=== PATIENT | male | born 1935 | race Caucasian/White ===

== ENCOUNTER → 2023-07-27 08:15 | Outpatient (REF) | payer MEDICARE, BC, SELFPAY | LOC: WOUND 08:15 | PROVIDERS: ATTENDING PHYSICIAN Surgery; FAMILY PHYSICIAN Family Medicine | DX: I87.311 Chronic venous hypertension (idiopathic) with ulcer of right lower extremity (principal); L97.811 Non-pressure chronic ulcer of other part of right lower leg limited to breakdown of skin; I87.2 Venous insufficiency (chronic) (peripheral); I73.9 Peripheral vascular disease, unspecified; I10 Essential (primary) hypertension | CPT/HCPCS: 29581; 99204 ==

== ENCOUNTER → 2023-08-05 10:52 | Outpatient (REF) | payer MEDICARE, BC, SELFPAY | LOC: WOUND 10:52 | PROVIDERS: ATTENDING PHYSICIAN Surgery; FAMILY PHYSICIAN Family Medicine | DX: I87.311 Chronic venous hypertension (idiopathic) with ulcer of right lower extremity (principal); L97.811 Non-pressure chronic ulcer of other part of right lower leg limited to breakdown of skin; I87.2 Venous insufficiency (chronic) (peripheral); I73.9 Peripheral vascular disease, unspecified; I10 Essential (primary) hypertension | CPT/HCPCS: 99212 ==

== ENCOUNTER → 2023-09-23 09:25 | Outpatient (REF) | payer MEDICARE, BC, SELFPAY | LOC: DHCBS HW 09:25 | PROVIDERS: ATTENDING PHYSICIAN Internal Medicine Cardiovascular Disease; FAMILY PHYSICIAN Family Medicine | DX: R06.02 Shortness of breath (principal) | CPT/HCPCS: 93306 ==

== ENCOUNTER → 2024-01-03 09:28 | Outpatient (REF) | payer MEDICARE, BC, SELFPAY | LOC: HWRAD 09:28 | PROVIDERS: ATTENDING PHYSICIAN Physician Assistant | DX: I60.9 Nontraumatic subarachnoid hemorrhage, unspecified (principal) | CPT/HCPCS: 70450 ==

== ENCOUNTER 2024-02-04 21:06 | Emergency (ER) | payer MEDICARE, BC, SELFPAY ==
[2024-02-04 21:09] VITALS: BP 137/84
--- NOTE | 2024-02-04 21:20 | ED.GENMED ---
History of Present Illness
General
Chief Complaint: Head Injury
Time Seen by Provider: 02/04/24 21:09
History of Present Illness
History of Present Illness:
HPI: The patient presents with a head injury. He was at his house next to his hospital bed downstairs and indicates that he presumably was trying to change but his walker was not present and he fell forward striking his head on the coffee
table. Of note, 1 to 2 months ago, the patient had a 'double brain bleed' managed nonoperatively while he was on Eliquis - he was at [facility].
EXAM:
GENERAL: Appears in no distress
HEENT: Moist oral mucosa, there is no evidence of craniofacial trauma
CERVICAL SPINE: There is no midline C-spine tenderness
CARDIOVASCULAR: Regular rate and rhythm
PULMONARY: No respiratory distress, breathing is nonlabored, equal and clear breath sounds
ABDOMEN: Soft and nontender with no peritoneal signs
NEUROLOGIC: The patient has evidence of dementia, not oriented to month or place, strength is equal in all extremities
EXTREMITIES: Moves all extremities equally, no tenderness, no edema
PYSCHIATRIC: Very limited historian, poor insight and judgment
TIME OF INITIAL ENCOUNTER: 9:20 PM
NUMBER AND COMPLEXITY OF PROBLEMS ADDRESSED AT THE ENCOUNTER
� Chronic conditions affecting care: High blood pressure, hyperlipidemia, prostate cancer, intracranial hemorrhage after trauma 2023
� Acute Exacerbation and/or Progression of Chronic Illness: This is an acute problem
� Differential Diagnosis includes: Intracranial hemorrhage, minor head injury, concussion,
AMOUNT AND/OR COMPLEXITY OF DATA TO BE REVIEWED AND ANALYZED
� I performed an independent evaluation of and my interpretation is:
EKG:
CT: I personally reviewed CT imaging�chronic findings noted but no acute abnormality
X-rays:
Laboratory Studies:
Other:
� Review of other/old records: Echo was obtained 09/23/2023 for history of A-fib that showed borderline global hypokinesis with EF of 50%
� Clinical information was obtained by an independent historian: was the primary historian that I spoke to at bedside
� Prescriptions/Medications Considered but not given:
� Further testing considered but not performed:
RISK OF COMPLICATIONS AND/OR MORBIDITY OR MORTALITY OF PATIENT MANAGEMENT
� Social determinants of health affecting care: The patient came in from home by ambulance, he has a hospital bed downstairs
� Discussion with other providers:
� Escalation of care including admission/observation vs risk of discharge considered: Will obtain CT imaging for further evaluation as the patient had a recent presumably subdural hematoma managed nonoperatively. At that time he
was on Eliquis. He is no longer on Eliquis. Remainder of physical exam for trauma is unremarkable.
Past History
Past History
ED Past Medical History: HTN, Hypercholesterolemia and Other (Seasonal allergies)
ED Past Surgical History: Other (Colonoscopy July 2014); Negative Appendectomy (The patient denies having an appendectomy)
Social History
Tobacco: Non-smoker
Drug: None
Personal:
Living: with family
Employment: Retired
Phy Exam
Physical Exam
Physical Exam:
See HPI
Course
Orders/Labs/Results
Orders:
Orders
02/04/24 21:19
CT Head W/o Iv Contrast Urgent
Comment:
Reason For Exam: head trauma; Decemberdouble brain bleed' [facility]
Vital Signs
Initial and Last Documented VS:
Initial Vital Signs
Temp Pulse Resp BP Pulse Ox
98.6 F 73 16 137/84 100
02/04/24 21:09 02/04/24 21:09 02/04/24 21:09 02/04/24 21:09 02/04/24 21:09
Last Documented Vital Signs
Temp Pulse Resp BP Pulse Ox
98.6 F 73 16 137/84 98
02/04/24 21:09 02/04/24 21:09 02/04/24 21:09 02/04/24 21:09 02/04/24 21:11
*Critical Care Note
Total Time (30-74mins, 75-104mins- exclusive of procedures): Not Applicable
ED Attending Note
-
Portions of this chart may have been created with voice recognition software.� Occasional wrong word or��sound alike� substitutions may have occurred due to the inherent limitations of voice recognition software.
Discharge Plan
Departure
Patient Disposition: Home (Routine Discharge)
Date of Disposition: 02/04/24
Time of Disposition: 23:00
Patient with high blood pressure during this ER visit?: Yes
Discharge Problem:
Head injury
Instructions: Minor Head Injury (DC)
Prescriptions:
No Action
losartan [Cozaar] 50 MG tablet
50 mg PO DAILY
cetirizine [Zyrtec] 5 MG tablet
5 mg PO DAILY
simvastatin 20 MG tablet
20 mg PO DAILY
azelastine-fluticasone [Dymista] 23 GM spray,non-aerosol
1 spray NASSPRAY DAILY
albuterol sulfate 1 PUFF HFA aerosol inhaler
2 puff inhalation PRN PRN (Reason: sob)
meclizine 12.5 MG tablet
12.5 mg PO Q8HPRN PRN (Reason: dizziness) Qty: 20 0RF
tramadol 50 MG tablet
50 mg PO Q6HPRN PRN (Reason: pain)
docusate sodium [Colace] 100 MG capsule
50 mg PO QIDPRN PRN (Reason: constipation)
gabapentin 300 MG capsule
300 mg PO HS
hxxevwmneqje-dgop-ziemc acid [Centrum] 1 EACH tablet
1 ea PO DAILY
Referrals:
Laura Estrada MD [Family Provider] -
Activity Restrictions/Additional Instructions:
We see no sign of bleeding in your brain. Return here if worse. Follow with your primary care doctor for reassessment.
Interventions
Interventions:
*Risk Screen - Suicide Last Done: 02/04/24 22:44
*General Assessment Last Done: 02/04/24 21:12
*Neglect/Abuse Screening Last Done: 02/04/24 22:44
ED- Fall Risk Assessment Last Done: 02/04/24 22:55
*ED COVID-19 Vaccine History Last Done: 02/04/24 21:13
ED- Neurological Assessment Last Done: 02/04/24 21:13
ED-Skin Assessment Last Done: 02/04/24 21:13
Discharge Date and Time
Print Language: KISWAHILI
[2024-02-04 22:00] VITALS: BP 127/74
[2024-02-04 23:37] VITALS: BP 135/82
== END 2024-02-04 23:38 | disposition home or self-care (01) ==
LOC: EMR 21:06
PROVIDERS: EMERGENCY PHYSICIAN Emergency Medicine; FAMILY PHYSICIAN Family Medicine
DX: S09.90XA Unspecified injury of head, initial encounter (principal); W19.XXXA Unspecified fall, initial encounter; I10 Essential (primary) hypertension
CPT/HCPCS: 99284; 70450

== ENCOUNTER → 2024-04-17 11:07 | Outpatient (REF) | payer MEDICARE, BC, SELFPAY | LOC: WOUND 11:07 | PROVIDERS: ATTENDING PHYSICIAN Surgery; FAMILY PHYSICIAN Family Medicine | DX: I87.311 Chronic venous hypertension (idiopathic) with ulcer of right lower extremity (principal); L97.211 Non-pressure chronic ulcer of right calf limited to breakdown of skin; I87.2 Venous insufficiency (chronic) (peripheral); I73.9 Peripheral vascular disease, unspecified; Z95.0 Presence of cardiac pacemaker | CPT/HCPCS: 29580; 99214 ==

== ENCOUNTER → 2024-04-24 13:53 | Outpatient (REF) | payer MEDICARE, BC, SELFPAY | LOC: WOUND 13:53 | PROVIDERS: ATTENDING PHYSICIAN Surgery; FAMILY PHYSICIAN Family Medicine | DX: I87.311 Chronic venous hypertension (idiopathic) with ulcer of right lower extremity (principal); L97.211 Non-pressure chronic ulcer of right calf limited to breakdown of skin; I87.2 Venous insufficiency (chronic) (peripheral); I73.9 Peripheral vascular disease, unspecified; Z95.0 Presence of cardiac pacemaker | CPT/HCPCS: 29580 ==

== ENCOUNTER → 2024-05-01 09:42 | Outpatient (REF) | payer MEDICARE, BC, SELFPAY | LOC: WOUND 09:42 | PROVIDERS: ATTENDING PHYSICIAN Surgery; FAMILY PHYSICIAN Family Medicine | DX: I87.311 Chronic venous hypertension (idiopathic) with ulcer of right lower extremity (principal); L97.211 Non-pressure chronic ulcer of right calf limited to breakdown of skin; I87.2 Venous insufficiency (chronic) (peripheral); I73.9 Peripheral vascular disease, unspecified; Z95.0 Presence of cardiac pacemaker | CPT/HCPCS: 99212 ==

== ENCOUNTER 2024-06-02 15:23 | Inpatient (IN) | payer MEDICARE, BC, SELFPAY ==
[2024-06-02] VITALS (19 sets, daily range): BP systolic 96–139; BP diastolic 61–84; BMI 3544.8
--- NOTE | 2024-06-02 11:08 | ED.GENMED ---
History of Present Illness
General
Chief Complaint: Breathing Problem
Source: patient
Exam Limitations: none
Time Seen by Provider: 06/02/24 10:54
Nursing documentation reviewed up to this point in time: agreed with
History of Present Illness
History of Present Illness:
Patient is a 72 yr old male with past medical history of hypertension hyperlipidemia A-fib intracranial hemorrhage, pacemaker no longer on blood thinners presents to the ER for evaluation. reports that patient recently had blood work and
family doctor called them because of abnormal kidney function recommended he come to the ER. feels that patient is urinating slightly less this past week .
also reports the patient seems to be more short of breath than normal over the past 1 week. Pt however has not complained. reports mild cough.
Patient does have memory issues which have worsened since his intracranial hemorrhage in October 2023.
Patient has no complaints however is poor historian as baseline confusion
Past History
Past History
ED Past Medical History: HTN, Hypercholesterolemia and Other (Seasonal allergies)
ED Past Surgical History: Other (Colonoscopy July 2014); Negative Appendectomy (The patient denies having an appendectomy)
Social History
Tobacco: Non-smoker
Drug: None
Personal:
Living: with family
Employment: Retired
Review of Systems
Review of Systems
Allergies reviewed?: Yes
All Other Systems: ROS reviewed and negative except as documented in HPI and ROS
Constitutional: Reports no symptoms
Respiratory: Reports trouble breathing (as per )
Cardiac: Denies chest pain or palpitations
ABD/GI: Reports no symptoms
Musculoskeletal: Reports no symptoms
Skin: Reports no symptoms
Neurological: Reports no symptoms
Psychiatric: Reports no symptoms
Phy Exam
General Physical Exam
General Presentation: no apparent distress
General age: appears stated age
General Skin: warm and dry
General Habitus: elderly
General Mental: alert
General Hydration: appears well hydrated
Cardiovascular Exam
Cardiovascular Exam: regular rate/rhythm, no murmur and normal peripheral pulses
Pulmonary Exam
Pulmonary Exam: lungs clear and no respiratory distress
Neurological Exam
Neurological Exam: alert and oriented x3
Musculoskeletal Exam
Musculoskeletal Exam: full ROM
Skin Exam
Skin Exam: normal color and warm/dry
Psychiatric Exam
Psychiatric Exam: normal mood/affect
Scores
Heart Failure Risk
Heart Failure Risk Score: Not Applicable
Course
Orders/Labs/Results
Orders:
Orders
06/02/24 Lunch
Cholesterol Lowering
At Your Request: Full Participation
Does patient need a safe tray?: No
Cholesterol Lowering: Sodium, 2 Gram
06/02/24 10:26
Electrocardiogram (*1) Urgent
Reason for Study: Shortness of Breath
EKG- Treatment ONCE
06/02/24 11:08
CT Head W/o Iv Contrast Urgent
Comment:
Reason For Exam: fall
Chest [CR Chest - 2 Views ] Urgent
Comment:
Reason For Exam: sob
06/02/24 11:12
Cardiac Monitoring- Treatment ONCE
06/02/24 11:25
Complete Blood Count/With Diff Urgent
Comprehensive Metabolic Panel Urgent
Creatine Phosphokinase Urgent
Comment: ADD ON
D-Dimer Urgent
NT-proBNP Urgent
Comment: ADD ON
Troponin I Urgent
06/02/24 12:19
Add On- LAB Urgent
Tests Added?: cardiac bnp
06/02/24 13:46
CefTRIAXone [Rocephin] 1,000 mg IV NOW STA
06/02/24 13:48
Azithromycin 500 mg/250 ml [Zithromax Infusion] 500 mg in 250 ml IV NOW
06/02/24 14:55
Admit/Transfer Patient As Directed
Co-Sign Provider:
Level of Care: Inpatient admission
Assign to:: Telemetry
Physician / Group: Hospitalist
Diagnosis: Abnormal renal function test
Reason for Telemetry: Arrhythmia
Date to Stop Telemetry: 06/05/24
Time to Stop Telemetry: 11:00
Reason for Hospitalization: Abnormal renal function
Expected length of stay greater than two midnights?: Yes
ELOS- Estimated Length of Stay in days: 3
I certify the patient meets the requirements for IP care: Yes
06/02/24 14:56
PRN Pain Medication Management As Directed
May give lesser potent ordered pain med per pt: Yes
preference::
Protocol:: Medication orders for pain may be administered in a
manner that supports deferring to patient preference
when the pt is:
- Requesting an ordered lesser potent pain medication.
Least to most potent pain medications are defined
as: acetaminophen < NSAID < tramadol < opioids
(morphine, oxycodone, hydromorphone).
- Requesting a lesser dose of the same medication IF
ORDERED.
- Requesting a less intrusive route of administration
if both routes are prescribed by the provider (PO <
IV).
06/02/24 14:58
Code Status As Directed
Resuscitation Status: Do not resuscitate
Reached after discussion with pt or family/Healthcare POA: Yes
Acetaminophen [Tylenol] 650 mg PO Q4HPRN PRN
Bisacodyl [Dulcolax] 10 mg RECTAL [id number] PRN
Docusate W/Senna [Senokot-S] 1 tablet PO BIDPRN PRN
Polyethylene Glycol Powder [Miralax] 17 grams PO DAILYPRN PRN
Rx Incentive Spirometry [RESP] Routine
Frequency: q1h while awake
06/02/24 14:59
Activity As Directed
Activity Level: Out of Bed-Early Mobility
DNR Bracelet Application ONCE
Vital Signs As Directed
Frequency: Per unit guidelines
06/02/24 17:10
Pneumatic Compression Sleeves As Directed
Type: Knee high
DX Deep Vein Thrombosis Video Routine
06/02/24 22:00
Cetirizine HCl [Zyrtec] 10 mg PO HS
06/03/24 06:38
Complete Blood Count/No Diff IN AM
Comprehensive Metabolic Panel IN AM
Magnesium IN AM
06/03/24 08:00
Atorvastatin [Lipitor] 10 mg PO DAILY
06/05/24 11:00
DC Protocol for Telemetry ONCE
Abnormal Lab Results
06/02/24
11:25
RBC 2.84 L 10^6/uL
(4.70-6.10)
Hgb 9.9 L g/dL
(13.0-18.0)
Hct 30.8 L %
(39.0-52.0)
MCV 108.5 H fL
(80.0-94.0)
MCH 34.9 H pg
(27.0-31.0)
MCHC 32.1 L g/dL
(33.0-37.0)
RDW 16.7 H %
(11.5-14.5)
Plt Count 107 L 10^3/uL
(130-400)
MPV 12.2 H fL
(7.4-10.4)
Absolute Lymphs (auto) 0.6 L 10^3/uL
(1.2-3.4)
Absolute Monos (auto) 0.7 H 10^3/uL
(0.1-0.6)
Lymphocytes % 12.7 L %
(20.5-51.1)
Monocytes % 14.5 H %
(1.7-9.3)
Eosinophils % 7.1 H %
(0-6)
D-Dimer 2.11 H ug/mlFEU
(0.00-0.50)
Chloride 115 H mmol/L
(98-107)
Carbon Dioxide 19 L mmol/L
(22-30)
BUN 73 H mg/dl
(9-20)
Creatinine 1.9 H mg/dL
(0.7-1.3)
Total Bilirubin 2.5 H mg/dl
(0.2-1.3)
Alkaline Phosphatase 319 H U/L
(38-126)
Troponin I 0.074 H* ng/ml
06/02/24 11:25
06/02/24 11:25
Vital Signs
Initial and Last Documented VS:
Initial Vital Signs
Temp Pulse Resp BP Pulse Ox
98 F 60 18 124/61 94
06/02/24 10:29 06/02/24 10:29 06/02/24 10:29 06/02/24 10:29 06/02/24 10:29
Last Documented Vital Signs
Temp Pulse Resp BP Pulse Ox
98.5 F 66 20 112/65 97
06/03/24 07:50 06/03/24 07:50 06/03/24 07:50 06/03/24 07:50 06/03/24 07:50
MDM/Problems Addressed
Differential Diagnosis Includes:
Not limited to electrolyte abnormality renal failure CHF, infection
MDM/Problems Addressed:
Patient is an 89-year-old male with history of hypertension hyperlipidemia memory issues A-fib no longer on blood thinners due to intracranial hemorrhage in October presents for increasing worsening renal function. Patient's BUN is elevated at 73 with
a creatinine of 1.9 normal potassium. reports mild cough but no fever chest x-ray shows possible pneumonia will cover with antibiotics . Patient is not tachycardic and not hypoxic however D-dimer is elevated VQ scan will need to be done
because of renal function. His BNP is also elevated. will need admission for renal failure /pneumonia
Chronic conditions affecting care:
Memory issues hypertension hyperlipidemia pacemaker
*Critical Care Note
Total Time (30-74mins, 75-104mins- exclusive of procedures): Not Applicable
ED Attending Note
-
Portions of this chart may have been created with voice recognition software.� Occasional wrong word or��sound alike� substitutions may have occurred due to the inherent limitations of voice recognition software.
Discharge Plan
Departure
Patient Disposition: Admit
Date of Disposition: 06/02/24
Time of Disposition: 13:51
Admit to: Telemetry
Admit to doctor: hospitalist
Presentation/result/management discussed w/ accepting MD/DO: Hospitalist
Patient with high blood pressure during this ER visit?: No
Condition: Fair
Discharge Problem:
Acute renal failure, Pneumonia
Interventions
Interventions:
*Risk Screen - Suicide Last Done: 06/02/24 17:27
*General Assessment Last Done: 06/02/24 10:29
*Neglect/Abuse Screening Last Done: 06/02/24 10:29
ED- Fall Risk Assessment Last Done: 06/02/24 11:01
*ED COVID-19 Vaccine History Last Done: 06/02/24 17:27
*Nursing Disposition Last Done: 06/02/24 16:06
ED- Cardiac Assessment Last Done: 06/02/24 11:01
ED- Pulmonary Assessment Last Done: 06/02/24 11:01
Discharge Date and Time
Discharge Date/Time: 06/02/24 17:04
[2024-06-02 11:35] LABS: % Basophils 1.8 % (0-2); % Eosinophils 7.1 % (0-6); % Immature Granulocytes 0.4 % (0-0.5); % Lymphocytes 12.7 % (20.5-51.1); % Monocytes 14.5 % (1.7-9.3); % Neutrophils 63.5 % (42.2-75.2); Absolute Basophils 0.1 10^3/uL (0-0.2); Absolute Eosinophils 0.4 10^3/uL (0-0.7); Absolute Lymphocytes 0.6 10^3/uL (1.2-3.4); Absolute Monocytes 0.7 10^3/uL (0.1-0.6); Absolute Neutrophils 3.2 10^3/uL (1.4-6.5); Hematocrit 30.8 % (39.0-52.0); Hemoglobin 9.9 g/dL (13.0-18.0); Mean Corp Hgb Conc. 32.1 g/dL (33.0-37.0); Mean Corpuscular Hgb 34.9 pg (27.0-31.0); Mean Corpuscular Volume 108.5 fL (80.0-94.0); Mean Platelet Volume 12.2 fL (7.4-10.4); Nucleated Red Blood Cells % 0 % (-); Platelet Count 107 10^3/uL (130-400); Red Blood Cell Count 2.84 10^6/uL (4.70-6.10); Red Cell Dist. Width 16.7 % (11.5-14.5); White Blood Cell Count 5.1 10^3/uL (4.8-10.8)
[2024-06-02 11:48] LABS: ALT (SGPT) 30 U/L (0-50); AST (SGOT) 54 U/L (17-59); Albumin 3.9 g/dl (3.5-5.0); Alkaline Phosphatase 319 U/L (38-126); Blood Urea Nitrogen 73 mg/dl (9-20); Calcium 9.1 mg/dl (8.4-10.2); Carbon Dioxide 19 mmol/L (22-30); Chloride 115 mmol/L (98-107); Glucose 99 mg/dl (70-99); Potassium 4.7 mmol/L (3.5-5.1); Sodium 145 mmol/L (135-145); Total Bilirubin 2.5 mg/dl (0.2-1.3); Total Protein 7.1 g/dl (6.3-8.2); eGFR 33.72
[2024-06-02 11:57] LABS: D-Dimer 2.11 ug/mlFEU (0.00-0.50)
[2024-06-02 12:04] LABS: Troponin I 0.074 ng/ml
[2024-06-02 13:30] LABS: NT-proBNP 3500 pg/ml
[2024-06-02] MEDS: ROCEPHIN 1000 MG IV (13:57)
[2024-06-02] MEDS: ZITHROMAX INFUSION 250 IV (13:58)
--- NOTE | 2024-06-02 15:02 | HPS.HSE ---
Addendum entered and electronically signed by Ash Dowell MD 06/02/24 16:47:
Seen and examined by me independently in collaboration with the nurse practitioner Anand.
Past medical history/social history/medication/allergies reviewed.
Lab data and imaging data reviewed.
Patient sent in because of abnormal routine labs checked as outpatient.
His creatinine renal dysfunction with elevated creatinine BUN and metabolic acidosis. Patient denies any prior history of chronic kidney disease. He had a history of prostate cancer for which he had radiation. Denies any urinary retention
symptoms. has noticed decrease urine output and also some pressure he needs to apply when urinating.
He also complains of right lower back pain which is new today. Denies any prior history of kidney stones. History of radiates from the right lower back to the right hip area. He had a fall on Wednesday in the bathroom-slip and fall. But he was
ambulating fine without any symptoms of pain according to .
Obtain a CT of the abdomen pelvis without contrast to look any obstructing stone or hydronephrosis. Check a bladder scan and follow voiding habits.
No extrarenal losses in with shortness of breath and elevated BNP hold on IV fluids and encourage oral intake.
Consult nephrology.
Left basilar opacity noted on this lateral chest [id number] any prior history of pulmonary disease. No cough or fevers. Chest without crackles or wheeze. Afebrile and white count was normal at admission. Clinically not correlating for
infectious pneumonia. Would hold on antibiotics and follow clinical progress and will consider CT of the chest.
Shortness of breath- started noticed him to be little short of breath but the patient declines being short of breath. Lower extremity edema noted but no JVD chest clear. Chest x-ray does not suggest CHF. Elevated BNP which could be function
of renal dysfunction. Not known to have CHF. Denies any prior history of CAD or ME. EKG shows a small amplitude QRS. Last known echocardiogram from September 2023 shows EF of 59 on Rojas method but visually was 50. There was some borderline
global hypokinesis. LV myocardium had speckled appearance then. With a low volume QRS repeat an echocardiogram to look at the myocardium and also for pericardial effusion. Clinically not acting like heart failure. Consult cardiology.
Indeterminate troponin elevation without chest pain. Suspect in the function of renal dysfunction and nonischemic myocardial elevation. Repeat troponins.
Known hypertension apparently on losartan which I would hold. also mentions him to be on Lasix and apparently dose was decreased from 40 to 20 mg. Hold Lasix as well for now.
CODE STATUS-he has a living will which is DNR apparently but says if any reversible etiologies for cardiac arrest or respiratory arrest she wants support but does not want prolonged support especially if it is going to put him in a nursing
home or give him poor quality of life.
Original Note:
Family Physician
-
Family Physician: Laura Estrada
Chief Complaint
-
Abnormal renal function test
History of Present Illness
The patient is a 72-year-old male with known past medical history of hypertension, Hyperlipidemia, paroxysmal A-fib, history of intracranial hemorrhage, pacemaker (no longer on blood), prostate cancer s/p radiation presented to the ER per the
recommendation from the family doctor because of abnormal renal function test.
His states she noticed that for almost 1 week he is having trouble with breathing, does not use oxygen at home. 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 He also uses losartan if
his systolic blood pressures more than 100. They check blood pressure every day at home. Patient has been having decreased urination for 1 week and developed Right flank pain while in the ER per .
Of note also mentioned that patient has been experiencing memory issues since he has intracranial hemorrhage in October 2023.
In the ER patient is AFVSS, chest x-ray showed possible left lower lobe pneumonia and patient received 1 dose of Rocephin and 1 dose of Zithromax infusion. Blood work showed elevated D-dimer, elevated trop 0.074. proBNP of 3500. Cr 1.9, BUN 73.
Medical History
Past Medical History
Past Medical History: Reports Arrhythmia (A fib), Cancer (Prostate), HTN and Hypercholesterolemia
Past Surgical History: Reports Orthopedic (b/l knee and left hip)
Social History
Tobacco: Non-smoker
Alcohol: None
Drug: None
Personal:
Living: With Family
Family History
Family History: Not pertinent
Allergies / Home Medications
Allergies reflects when Allergies were last updated in [employer].
Home Medications with original date entered in [facility]
Allergy/Medication List:
Allergies
Allergy/AdvReac Type Severity Reaction Status Date / Time
No Known Allergies Allergy Verified 06/02/24 10:29
Home Medications
simvastatin 20 mg tablet 20 mg PO DAILY High Cholesterol 02/06/14
cetirizine 10 mg tablet (Zyrtec) 10 mg PO HS Allergies 06/02/24
therapeutic multivitamin 1 tab PO DAILY Supplement 06/02/24
Lasix 20mg daily
Losartan 25mg Daily( if SBP >100)
Review of Systems
-
History Source: Patient
EENT: Reports No Symptoms
Respiratory: Reports No Symptoms
Cardiac: Reports No Symptoms
Abdomen/GI: Reports No Symptoms
: Reports Dark Urine
Psych: Reports Dementia (mild)
Physical Exam
Vital Signs
Vital Signs
Temp Pulse Resp BP Pulse Ox
98 F 60 18 122/77 98
06/02/24 10:29 06/02/24 14:15 06/02/24 14:15 06/02/24 14:00 06/02/24 14:00
Physical Exam
General: Appears in Distress (c/o flank and lower back pain)
HEENT: NormoCephalic
Respiratory: Clear
Cardiac: S1/S2 (dull) and Regular Rhythm
GI: Soft and Non Tender
Musculoskeletal: No Edema
Skin: Warm
Neuro: Awake and Alert
Psych: Calm
Laboratory Results
-
06/02/24 11:25
06/02/24 11:25
Laboratory Results
Total Bilirubin 2.5 mg/dl (0.2-1.3) H 06/02/24 11:25
AST 54 U/L (17-59) 06/02/24 11:25
ALT 30 U/L (0-50) 06/02/24 11:25
Alkaline Phosphatase 319 U/L (38-126) H 06/02/24 11:25
Troponin I 0.074 ng/ml H* 06/02/24 11:25
Data Reviewed
-
CT Scan: Report Reviewed by me
Lab Data: Labs Reviewed by me, Discussed with Physician and Discussed with Patient
Impression/Plan
-
IMPRESSION: The patient is a 72-year-old male with known past medical history of hypertension, Hyperlipidemia, paroxysmal A-fib, history of intracranial hemorrhage, pacemaker (no longer on blood), prostate cancer s/p radiation presented to the ER
per the recommendation from the family doctor because of abnormal renal function test. Also c/o change in breathing.
# Possible ANDREA; trouble urinating
-Elevated creatinine and BUN
-Check UA
-CT abdomen pelvis
-Consulted nephro
-May need bladder scan/Rene if patient unable to urinate
# Shortness of breath
-D-dimer elevated; low probability of PE
-Check ultrasound bilateral LE
-Likely due to right flank/lower back pain; Tylenol p.o. for pain
# Elevated trops
-Trop 0.074; trend
-proBNP 3500
Check echo
# Hypertension
-Hold home losartan and Lasix
#Hyperlipidemia
-Continue home simvastatin
# A-fib
- telemetry
-Pacemaker
-Ordered echo
# Anemia; cause unknown
-Repeat labs in the a.m.
-Check vitamin B12
DVT prophylaxis: SCD
CODE STATUS: Full code
[2024-06-02] MEDS: TYLENOL 650 MG PO (15:37)
[2024-06-02 16:27] LABS: Urine Albumin Trace (Neg - Trace); Urine Bilirubin Negative (Negative); Urine Character Clear (Clear); Urine Color Yellow; Urine Glucose Negative (Negative); Urine Ketone Negative (Negative); Urine Leukocyte Negative (Negative); Urine Nitrite Negative (Negative); Urine Occult Blood Negative (Negative); Urine Specific Gravity 1.015 (<1.030); Urine Urobilinogen Negative (Neg - 1+)
--- NOTE | 2024-06-02 16:32 | W.CON.NEPH ---
Consultation
-
Date/Time Consultation Requested: 06/02/2024 4:15 PM
Date/Time Consultation Performed: 06/02/2024 4:15 PM
Requesting Provider: Dr. Patterson
Performing Provider: Dr. Teran
Reason for Consultation: Acute kidney injury
Medical History
-
Chief Complaint: Acute kidney
History of Present Illness:
The patient is an 89-year-old male with a past medical history of congestive heart failure. He is maintained on recently reduced dose of Lasix from 40 to 20 mg a few weeks prior at the direction of cardiology. I review of his records reveal a
creatinine of 1.6 from January 2024. On April 28, 2024 his creatinine was 2.11. By May 17, 2024 was 1.8. He presented to the office at the direction of an outside physician for possible congestive heart failure decompensation in association
with his CKD. Of note the patient has never seen a director strategic account management. On presentation to the hospital his says that he has had increasing edema weight gains and shortness of breath. His notes that he has had decreased urine output over the
past 1 to 2 weeks. the patient does have a history of paroxysmal atrial fibrillation and has an indwelling pacemaker. He has a history of hypertension and is apparently maintained on losartan as well. On presentation to the hospital he is short of
breath and has a creatinine elevation at 1.9 and nephrology was asked to see the patient.
Past Medical History
Congestive heart failure
Paroxysmal atrial fibrillation
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
History of intracranial hemorrhage
Pacemaker
Peripheral vascular
Hyperlipidemia
Hypertension
Prostate cancer status post radioactive seeding
Cognitive decline
Social History
Tobacco: Non-Smoker
Alcohol: None
Drug: None
Living: With Family
Family History
No chronic kidney disease
Allergies / Home Medications
Allergy/AdvReac Type Severity Reaction Status Date / Time
No Known Allergies Allergy Verified 06/02/24 10:29
�Medication �Instructions �Recorded �Confirmed �Type
simvastatin 20 mg tablet 20 mg PO DAILY High Cholesterol 02/06/14 06/02/24 History
cetirizine 10 mg tablet (Zyrtec) 10 mg PO HS Allergies 06/02/24 06/02/24 History
therapeutic multivitamin 1 tab PO DAILY Supplement 06/02/24 06/02/24 History
Review of Systems
-
History Source: Patient and Family
All other systems: Negative unless noted
Constitutional: Weight Gain and Fatigue
Respiratory: Other (Increased shortness of breath occasional cough)
Cardiac: No Symptoms
Abdomen/GI: No Symptoms
: Flank Pain (Unilateral flank pain), Difficulty Voiding (3-4 times nightly nocturia) and Dark Urine
Musculoskeletal: Edema
Skin: Other (Lower extremity erythema)
Neurological: Other (Cognitive decline)
Physical Exam
Vital Signs
Vital Signs
Temp Pulse Resp BP Pulse Ox
98 F 73 19 121/72 97
06/02/24 10:29 06/02/24 16:00 06/02/24 16:00 06/02/24 16:00 06/02/24 16:00
Lab Results
06/02/24 11:25
06/02/24 11:25
WBC 5.1 10^3/uL (4.8-10.8) 06/02/24 11:25
RBC 2.84 10^6/uL (4.70-6.10) L 06/02/24 11:25
Hgb 9.9 g/dL (13.0-18.0) L 06/02/24 11:25
Hct 30.8 % (39.0-52.0) L 06/02/24 11:25
Plt Count 107 10^3/uL (130-400) L 06/02/24 11:25
Sodium 145 mmol/L (135-145) 06/02/24 11:25
Potassium 4.7 mmol/L (3.5-5.1) 06/02/24 11:25
Chloride 115 mmol/L (98-107) H 06/02/24 11:25
Carbon Dioxide 19 mmol/L (22-30) L 06/02/24 11:25
BUN 73 mg/dl (9-20) H 06/02/24 11:25
Creatinine 1.9 mg/dL (0.7-1.3) H 06/02/24 11:25
eGFR 33.72 06/02/24 11:25
Glucose 99 mg/dl (70-99) 06/02/24 11:25
Calcium 9.1 mg/dl (8.4-10.2) 06/02/24 11:25
Dhu-K-Vgguqkdwsxk Pept 3500 pg/ml 06/02/24 11:25
Albumin 3.9 g/dl (3.5-5.0) 06/02/24 11:25
Physical Exam
General: Awake and Other (Oriented to place but not to all occurrences)
HEENT: PERRL, Anicteric, Conjunctivae Clear (Pale) and Trachea Midline
Respiratory: Clear, Normal Excursion and Other (Decreased breath sounds to bases)
Cardiac: S1/S2 (Bradycardic)
Breast: Deferred by me
Abdomen: Soft, Normal Bowel Sounds, No Hepatosplenomegaly and Other (Distended no suprapubic tenderness)
Rectal: Deferred by Provider
Genito-urinary: Turbid Urine
Musculoskeletal: No Clubbing, Cyanosis and Edema (+1 edema)
Skin: Other (Erythema along lower extremities)
Neuro: Nonfocal/Grossly Intact and Strength (5 out of 5 both upper and lower extremity)
Hematologic/Lymphatic: No Cervical Lymphadenopathy, No Submandibular Lymphadenopathy and No Supraclavicular Lymphadenopathy
Psych: Mood/afflect pleasant and Other (Some confusion with answers)
Data Reviewed
-
Radiology: Image Personally Visualized and interpreted (I reviewed his chest x-ray personally and noted a pacemaker device in left anterior chest wall, no CHF or pneumonic infiltrate by my review)
Medical Tests (Nuc Med, Echo etc): Other (EKG report reviewed ventricular paced rhythm at 60 bpm)
Labs: Labs Reviewed by me (BMP CBC)
Old Records: Reviewed (Reviewed creatinine level in electronic medical record from 04/28/2024 creatinine 2.11 reviewed creatinine level of 1.6 from 01/21/24)
Assessment/Plan
-
Impression
Hypoxic respiratory distress
Volume overload
CKD stage IIIb
Paroxysmal atrial fibrillation
Pacemaker
Peripheral vascular disease
Metabolic acidosis
History of hypertension
Flank pain
History of prostate cancer with radio active seeding
Plan:
ANDREA/CKD/Volume Overload
-I suspect the patient is hypervolemic and will require IV diuresis,echo in progress
-Hold ARB
-His acute kidney injury could be due to evolving cardiorenal syndrome or possibly even obstructive uropathy given his flank pain and decreased urine output
-CT scan of abdomen and pelvis will be obtained to evaluate for possible obstructive process
-Would bladder scan and have low threshold for Rene catheter if postvoid residual is greater than 400
-Obtain urinalysis urine sodium and urine creatinine urine protein
[2024-06-02 16:45] LABS: Creatine Phosphokinase 152 U/L (55-170)
--- NOTE | 2024-06-02 16:45 | CON.CAR ---
Addendum entered and electronically signed by Brad Diamond DO 06/02/24 17:17:
I saw and examined the patient.
The Manager Maintenance's note was reviewed and I agree with the note.
Comment:
Briefly, patient is a pleasant 89-year-old male with a past medical history significant for paroxysmal atrial fibrillation not on anticoagulation due to intracranial hemorrhage, chronic heart failure preserved ejection fraction, permanent pacemaker
in setting of AV block, hypertension, hyperlipidemia, CKD, speckled appearance on recent echo concerning for amyloid who presents with worsening shortness of breath, productive cough, weight gain, abdominal girth, and recent fall. Patient reporting
worsening lower extremity swelling, abdominal girth, yellow productive cough, chills. Patient previously on oral Lasix but this was reduced in the setting of an elevated creatinine in April 2024 however in the emergency department, creatinine
noted to be 1.9 with a BNP of 3500. Troponin 0.074. EKG low voltage likely sinus rhythm versus a paced V sensed and PVCs. Chest x-ray concerning for pneumonia. Patient given antibiotics and admitted. Cardiology consulted for heart failure.
GENERAL: no acute distress, on nasal cannula
EYE: sclera anicteric
NECK: Supple, no carotid bruit appreciated
ENT: normal nose, moist mucosal membranes
CARDIAC: Regular rate and rhythm, +S1/S2, no murmur, rubs, or gallops; left CIED site CDI
CHEST/PULMONARY: Normal effort, decreased breath sounds, mild crackles/rhonchi
ABDOMEN: Soft, without focal tenderness; distended
NEUROLOGICAL: Alert and oriented x3
SKIN: Warm and dry; 2+ pitting edema bilateral lower extremities with chronic stasis erythema bilateral
PSYCH: Normal and appropriate interaction.
A/P as below
Impression:
Presented with weight gain, SOB
Acute on chronic HFpEF
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
Elevated troponin, suspected nonischemic myocardial injury
Mechanical fall last week
Paroxysmal atrial fibrillation
Not on OAC due to h/o intracranial bleed
[facility] PPM 10/2023
Hypertension
Hyperlipidemia
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
ECHO 09/23/2023: EF 59%, EF 50% by visual estimate with borderline global hypokinesis, moderate concentric LVH, 'speckled appearance' of LV on echo, enlarged RV, mildly dilated RA, mild MR, aortic sclerosis, mild AR, moderate TR, PAP 25 to 30 mmHg
Plan:
-Patient presents with weight gain, shortness of breath, abdominal bloating. His Lasix had been decreased from 40 mg daily to 20 mg daily last month due to creatinine up to 2.1. He is not followed by nephrology as an outpatient
-proBNP 3500. Chest x-ray with left lower lobe pneumonia versus possible effusion. Would diurese with 40 mg IV Lasix daily. Nephrology has been consulted. Appreciate input from pulmonology as well in the setting of possible pneumonia defer to
primary service
-Follow creatinine with diuresis
-Wean supplemental oxygen as able. Not on home O2
-Echo from 09/2023 as above. Repeat pending 06/02. Last echo did note 'speckled appearance' of LV on echo, suggestive of possible amyloid, however given advanced age may not work up further.
-Suspected sinus rhythm by EKG. He does have history of paroxysmal A-fib. Would interrogate his device when able. He is not on beta-peggy as outpatient, in setting of heart failure would consider addition if blood pressures able to tolerate.
-He is not chronically on anticoagulation or aspirin due to history of intracranial bleed. He also had mechanical fall last week at home. Head CT without acute abnormalities.
-Troponin 0.07. Does not report any chest pain. Trend to peak. Suspected nonischemic myocardial injury in the setting of acute CHF and chronic kidney disease.
-Discussed with patient and at bedside
Original Note:
Consultation
Consultation Request
Date/Time Consultation Performed: 06/02/24
Requesting Provider: Dr. Dowell
Performing Provider: [place] PA-C for Dr. Diamond
Reason for Consultation: CHF
Medical History
-
History of Present Illness:
HPI: Chris is an 89-year-old male with past medical history of paroxysmal atrial fibrillation not on anticoagulation due to history of intracranial bleed, chronic HFpEF, permanent pacemaker, hypertension, hyperlipidemia, and CKD. Presented to ER
for evaluation of abnormal lab work as outpatient. reported that he has had increased edema, weight gain, and shortness of breath as well as decreased urine output over the past few weeks as well as fatigue with normal activities. reports
he had particularly complained of bloating in his abdomen and felt as though his pants would not close. As outpatient, Lasix dose had been reduced from 40 mg to 20 mg in 04/2024 due to Cr up to 2.1. In ER, found to have ANDREA with creatinine 1.9.
proBNP 3500. Left lower lobe opacity noted on chest x-ray, consistent with pneumonia. He was given a dose of IV antibiotics in the ER and was admitted for further workup and evaluation. Cardiology consulted given concern for acute heart failure.
Reports he did have a mechanical fall last week on a 'slippery floor', no LOC.
PMH:
Paroxysmal atrial fibrillation
Not on OAC due to h/o intracranial bleed
Chronic HFpEF
[facility] PPM 10/2023
Hypertension
Hyperlipidemia
CKD 3b
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
Past Medical History
Past Medical History: Other (In HPI)
Past Surgical History: Cardiac (PPM 10/2023) and Orthopedic (b/l TKA, L NICOLETTE)
Social History
Tobacco: Non-Smoker
Alcohol: None
Drug: None
Personal:
Living: With Family
Employment: Retired
Family History
Family History: Reviewed & Not Pertinent
Allergies / Home Medications
Allergy/AdvReac Type Severity Reaction Status Date / Time
No Known Allergies Allergy Verified 06/02/24 10:29
�Medication �Instructions �Recorded �Confirmed �Type
simvastatin 20 mg tablet 20 mg PO DAILY High Cholesterol 02/06/14 06/02/24 History
cetirizine 10 mg tablet (Zyrtec) 10 mg PO HS Allergies 06/02/24 06/02/24 History
therapeutic multivitamin 1 tab PO DAILY Supplement 06/02/24 06/02/24 History
Review of Systems
-
History Source: Patient and Family
All other systems: Negative unless noted
Physical Exam
Vital Signs
Temp Pulse Resp BP Pulse Ox
98 F 73 19 121/72 97
06/02/24 10:29 06/02/24 16:00 06/02/24 16:00 06/02/24 16:00 06/02/24 16:00
Lab Results
06/02/24 11:25
06/02/24 11:25
Troponin I 0.074 ng/ml H* 06/02/24 11:25
Azw-D-Unsbmxxjsld Pept 3500 pg/ml 06/02/24 11:25
Physical Exam
General: No Apparent Distress, Comfortable and Other (on supp O2)
HEENT: Normocephalic, Anicteric and Moist Mucous Membranes
Respiratory: Clear (anterolaterally) and Non Labored Respirations
Cardiac: S1/S2 and Regular Rhythm
GI: Soft, Non Tender, Normal Bowel Sounds and Distended (mild )
Musculoskeletal: No Clubbing, No Cyanosis and Edema (2+ edema of B/L LE)
Skin: Warm and Dry
Neuro: AO x 3
Impression / Plan
-
PCP: Dr. Estrada
Tactical Debriefer Officer: Dr. Diaz
Impression:
Presented with weight gain, SOB
Acute on chronic HFpEF
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
Elevated troponin, suspected nonischemic myocardial injury
Mechanical fall last week
Paroxysmal atrial fibrillation
Not on OAC due to h/o intracranial bleed
[facility] PPM 10/2023
Hypertension
Hyperlipidemia
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
ECHO 09/23/2023: EF 59%, EF 50% by visual estimate with borderline global hypokinesis, moderate concentric LVH, 'speckled appearance' of LV on echo, enlarged RV, mildly dilated RA, mild MR, aortic sclerosis, mild AR, moderate TR, PAP 25 to 30 mmHg
Plan:
-Patient presents with weight gain, shortness of breath, abdominal bloating. His Lasix had been decreased from 40 mg daily to 20 mg daily last month due to creatinine up to 2.1. He is not followed by nephrology as an outpatient
-proBNP 3500. Chest x-ray with left lower lobe pneumonia versus possible effusion. Would diurese with 40 mg IV Lasix daily. Nephrology has been consulted.
-Follow creatinine with diuresis
-Wean supplemental oxygen as able. Not on home O2
-Echo from 09/2023 as above. Repeat pending 06/02. Last echo did note 'speckled appearance' of LV on echo, suggestive of possible amyloid, however given advanced age may not work up further.
-Suspected sinus rhythm by EKG. He does have history of paroxysmal A-fib. Would interrogate his device when able. He is not on beta-peggy as outpatient, in setting of heart failure would consider addition if blood pressures able to tolerate.
-He is not chronically on anticoagulation or aspirin due to history of intracranial bleed. He also had mechanical fall last week at home. Head CT without acute abnormalities.
-Troponin 0.07. Does not report any chest pain. Trend to peak. Suspected nonischemic myocardial injury in the setting of acute CHF and chronic kidney disease.
-Discussed with patient and at bedside
HPI: Chris is an 89-year-old male with past medical history of paroxysmal atrial fibrillation not on anticoagulation due to history of intracranial bleed, chronic HFpEF, permanent pacemaker, hypertension, hyperlipidemia, and CKD. Presented to ER
for evaluation of abnormal lab work as outpatient. reported that he has had increased edema, weight gain, and shortness of breath as well as decreased urine output over the past few weeks. As outpatient, Lasix dose was recently reduced from 40
mg to 20 mg. In ER, found to have ANDREA with creatinine 1.9. proBNP 3500. Left lower lobe opacity noted on chest x-ray, consistent with pneumonia. He was given a dose of IV antibiotics in the ER and was admitted for further workup and evaluation.
Cardiology consulted given concern for acute heart failure.
Data Reviewed
-
EKG: Tracing Personally Visualized and interpreted
Radiology: Report Reviewed by me
Medical Tests (Nuc Med, Echo etc): Report Reviewed by me
Labs: Labs Reviewed by me
Old Records: Reviewed
--- NOTE | 2024-06-02 20:00 | PTCARENOTE ---
Pt refusing to go to CT and ultrasound, stating 'I don't have to go, you can't make me' provided teaching regarding importance of test. He said he will think about it
[2024-06-02 21:07] LABS: Troponin I 0.105 ng/ml
[2024-06-02] MEDS: ZYRTEC PO (23:06)
[2024-06-03 03:13] VITALS: BP 124/70
[2024-06-03 06:00] VITALS: BMI 3837.0
[2024-06-03 06:57] LABS: Hematocrit 28.6 % (39.0-52.0); Hemoglobin 9.5 g/dL (13.0-18.0); Mean Corp Hgb Conc. 33.2 g/dL (33.0-37.0); Mean Corpuscular Hgb 35.2 pg (27.0-31.0); Mean Corpuscular Volume 105.9 fL (80.0-94.0); Mean Platelet Volume 11.9 fL (7.4-10.4); Platelet Count 104 10^3/uL (130-400); Red Cell Dist. Width 16.8 % (11.5-14.5); White Blood Cell Count 5.7 10^3/uL (4.8-10.8)
[2024-06-03 07:15] LABS: Troponin I 0.137 ng/ml
[2024-06-03 07:16] LABS: ALT (SGPT) 27 U/L (0-50); AST (SGOT) 55 U/L (17-59); Albumin 3.5 g/dl (3.5-5.0); Alkaline Phosphatase 309 U/L (38-126); Blood Urea Nitrogen 71 mg/dl (9-20); Calcium 8.9 mg/dl (8.4-10.2); Carbon Dioxide 17 mmol/L (22-30); Chloride 115 mmol/L (98-107); Estimated Creatinine Clearance -4 ml/min; Glucose 95 mg/dl (70-99); Magnesium 2.6 mg/dl (1.6-2.3); Potassium 4.8 mmol/L (3.5-5.1); Sodium 144 mmol/L (135-145); Total Bilirubin 3.9 mg/dl (0.2-1.3); Total Protein 6.5 g/dl (6.3-8.2); eGFR 38.53
[2024-06-03 07:50] VITALS: BP 112/65
[2024-06-03 08:04] LABS: Vitamin B12 > 1000 pg/ml (239-931)
[2024-06-03] MEDS: LIPITOR 10 MG PO (08:11)
--- NOTE | 2024-06-03 08:13 | PTCARENOTE ---
PT AFOX3, FORGETFULAT TIMES. C/O LE LEG PAIN AND INTERMITTENT SOB. PT FOR US AND CT PELVIS, PT RESTING
[2024-06-03 09:14] LABS: Direct Bilirubin 1.6 mg/dl (0.0-0.4)
--- NOTE | 2024-06-03 10:11 | PTCARENOTE ---
pt stand turn pivot to stretcher for testing
--- NOTE | 2024-06-03 10:58 | W.PN.HOSP.TC ---
Today's Communication/Plan
-
Follow CT abdomen pelvis without contrast
Start on IV diuretics
Assessment / Plan
Assessment / Plan
Shortness of breath-suspected sec to acute CHF with mid range EF
started noticed him to be little short of breath but the patient declines being short of breath. Lower extremity edema noted but no JVD chest clear. Chest x-ray does not suggest CHF. Elevated BNP which could be function of renal dysfunction.
Learnt he is known to have CHF - dose of lasix decreased to 20mg from 40MG. Denies any prior history of CAD or DE. EKG shows a small amplitude QRS. Last known echocardiogram from September 2023 shows EF of 59 on Rojas method but visually was 50.
There was some borderline global hypokinesis. LV myocardium had speckled appearance then.
Echo shows mildly reduced LV function now 45%. IVC severely dilated.
Will consider starting on IV Lasix. Currently not hypoxic.
Indeterminate troponin elevation without chest pain. Suspect function of renal dysfunction and nonischemic myocardial elevation. Repeat troponins noted.
History of paroxysmal atrial fibrillation-not on AC due to history of intracranial bleed. Permanent pacemaker in place. AV paced rhythm noted.
ANDREA on CKD3
renal dysfunction with elevated creatinine BUN and metabolic acidosis. Prior Cr elevation noted per Renal note. He had a history of prostate cancer for which he had radiation. Denies any urinary retention symptoms. has noticed decrease
urine output and also some pressure he needs to apply when urinating.
He also complains of right lower back pain which is new today. Denies any prior history of kidney stones. History of radiates from the right lower back to the right hip area. He had a fall on Wednesday in the bathroom-slip and fall. But he was
ambulating fine without any symptoms of pain according to .
Obtain a CT of the abdomen pelvis without contrast to look any obstructing stone or hydronephrosis. Check a bladder scan and follow voiding habits.
No extrarenal losses .
Appt nephro input.
Left basilar opacity noted on this lateral chest [id number] any prior history of pulmonary disease. No cough or fevers. Chest without crackles or wheeze. Afebrile and white count was normal at admission. Clinically not correlating for
infectious pneumonia. Would hold on antibiotics and follow clinical progress and will consider CT of the chest.
Known hypertension apparently on losartan which I would hold.
Full code
Anticipated Discharge: 24 - 48 hours
Subjective/Interval History
-
Date of Service: June 03, 2024
Lying comfortably in the bed. No respiratory distress. No oxygen requirement.
States that his breathing is okay. No chest pain or palpitation. No nausea vomiting.
Still has right lower back pain but localized. Denies any radiation.
Tolerated breakfast.
Objective Data
-
Labs:
Laboratory Results
06/03/24
06:38
WBC 5.7
Hgb 9.5 L
Hct 28.6 L
Plt Count 104 L
Sodium 144
Potassium 4.8
Chloride 115 H
Carbon Dioxide 17 L
BUN 71 H
Creatinine 1.7 H
Glucose 95
Calcium 8.9
Total Bilirubin 3.9 H D
AST 55
ALT 27
Alkaline Phosphatase 309 H
Vital Signs:
Vital Signs
Temp Pulse Resp BP Pulse Ox
98.5 F 66 20 112/65 97
06/03/24 07:50 06/03/24 07:50 06/03/24 07:50 06/03/24 07:50 06/03/24 07:50
I&O
06/02/24 06/03/24 06/04/24
06:59 06:59 06:59
Output Total 100 / 100 505 / 505
Balance -100 / -100 -505 / -505
Review of Systems
-
Constitutional: Denies Fever
EENT: Denies Sore Throat
Respiratory: Denies Cough
Abdomen/GI: Denies Abdominal Pain
Neuro: Denies Dizzy
Physical Exam
-
General: No Apparent Distress
Respiratory: Non Labored Respirations; Negative Accessory Resp Muscle Use
Cardiac: Regular Rhythm, S1/S2 and Other (AV paced rhythm)
GI: Soft, Nontender, Nondistended and Normal Bowel Sounds
Musculoskeletal: Edema, Right Lower Extrem and Edema, Left Lower Extrem (1+ bl)
Neuro: AO x 3
Psych: Calm
Data Reviewed
-
Labs: Labs Reviewed by me
--- NOTE | 2024-06-03 11:34 | W.PN.NEPH.PH ---
Today's Communication / Plan
-
Agree with 40 mg IV Lasix daily
BMP
I will bladder scan
Awaiting CT of abdomen and pelvis report
Assessment/Plan
-
Impression
Hypoxic respiratory distress
Volume overload
CKD stage IIIb (
Paroxysmal atrial fibrillation
Pacemaker
Peripheral vascular disease
Metabolic acidosis
History of hypertension
Flank pain
History of prostate cancer with radio active seeding
Plan:
ANDREA/CKD/Volume Overload
-I suspect the patient is hypervolemic and will require IV diuresis,echo reviewed with some worsening LV dysfunction
-Agree with 40 mg IV lasix placed by primary team this am
-Creatinine down to 1.7
-Holding ARB
-His acute kidney injury could be due to evolving cardiorenal syndrome or possibly even obstructive uropathy given his flank pain and decreased urine output
-CT scan of abdomen and pelvis will be reviewed to evaluate for possible obstructive process
-Would bladder scan and have low threshold for Rene catheter if postvoid residual is greater than 400
-Obtain urinalysis urine sodium and urine creatinine urine protein
-
-
Date of Service: June 03, 2024
CC / HPI / ROS
-
Chief Complaint:
ANDREA
History of Present Illness:
Creatinine down to 1.7
Hemodynamically stable
Review of Systems:
Nonoliguric
No fevers
Weight up
Labs
-
Labs:
WBC 5.7 10^3/uL (4.8-10.8) 06/03/24 06:38
RBC 2.70 10^6/uL (4.70-6.10) L 06/03/24 06:38
Hgb 9.5 g/dL (13.0-18.0) L 06/03/24 06:38
Hct 28.6 % (39.0-52.0) L 06/03/24 06:38
Plt Count 104 10^3/uL (130-400) L 06/03/24 06:38
Sodium 144 mmol/L (135-145) 06/03/24 06:38
Potassium 4.8 mmol/L (3.5-5.1) 06/03/24 06:38
Chloride 115 mmol/L (98-107) H 06/03/24 06:38
Carbon Dioxide 17 mmol/L (22-30) L 06/03/24 06:38
BUN 71 mg/dl (9-20) H 06/03/24 06:38
Creatinine 1.7 mg/dL (0.7-1.3) H 06/03/24 06:38
eGFR 38.53 06/03/24 06:38
Glucose 95 mg/dl (70-99) 06/03/24 06:38
Calcium 8.9 mg/dl (8.4-10.2) 06/03/24 06:38
Oim-M-Wdmhllpoada Pept 3500 pg/ml 06/02/24 11:25
Albumin 3.5 g/dl (3.5-5.0) 06/03/24 06:38
Physical Exam
-
Vital Signs:
Vital Signs
Temp Pulse Resp BP Pulse Ox
98.5 F 66 20 112/65 97
06/03/24 07:50 06/03/24 07:50 06/03/24 07:50 06/03/24 07:50 06/03/24 07:50
Cardiovascular:: Regular rate and rhythm
Respiratory:: Bilateral: Coarse, Bilateral: Rhonchi and Bilateral: Wheeze
Lung Excursion:: Normal
Abdomen:: Nontender and Soft
Bowel Sounds:: Normal
Extremity Edema:: +1: Bilateral:
Rene Catheter: No
[2024-06-03] MEDS: LASIX 40 MG IV (12:02)
--- NOTE | 2024-06-03 12:09 | PTCARENOTE ---
pt returned from testing, eating lunch, at bedside
[2024-06-03 12:52] VITALS: BP 123/74
--- NOTE | 2024-06-03 13:06 | W.PN.CARDCBS ---
Today's Communication / Plan
-
IV diuresis
Awaiting CT scan
Monitor on telemetry
Impression / Plan
-
PCP: Dr. Estrada
Equipment Detailer: Dr. Diaz
Impression:
Presented with weight gain, SOB
Acute on chronic HFpEF
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
Elevated troponin, suspected nonischemic myocardial injury
Mechanical fall last week
Paroxysmal atrial fibrillation
Not on OAC due to h/o intracranial bleed
[facility] PPM 10/2023
Hypertension
Hyperlipidemia
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
ECHO 09/23/2023: EF 59%, EF 50% by visual estimate with borderline global hypokinesis, moderate concentric LVH, 'speckled appearance' of LV on echo, enlarged RV, mildly dilated RA, mild MR, aortic sclerosis, mild AR, moderate TR, PAP 25 to 30 mmHg
Echo 06/02/2024: EF 45%, moderate concentric LVH, inferoseptal, basal anteroseptal hypokinesis conduction delay versus global hypokinesis; speckling appearance; enlarged RV with normal systolic function. Mild MR, mild AI, moderate to severe TR
Plan:
-Patient presents with weight gain, shortness of breath, abdominal bloating. His Lasix had been decreased from 40 mg daily to 20 mg daily last month due to creatinine up to 2.1. He is not followed by nephrology as an outpatient
-proBNP 3500. Chest x-ray with left lower lobe pneumonia versus possible effusion. Start 40 mg IV Lasix daily. Nephrology has been consulted, appreciate recommendations
-Follow creatinine with diuresis
-Wean supplemental oxygen as able. Not on home O2
-Echo from 09/2023 as above. Last echo did note 'speckled appearance' of LV on echo, suggestive of possible amyloid, however given advanced age may not work up further.
-Suspected sinus rhythm by EKG. He does have history of paroxysmal A-fib. Would interrogate his device when able. He is not on beta-peggy as outpatient, in setting of heart failure would consider addition if blood pressures able to tolerate.
-He is not chronically on anticoagulation or aspirin due to history of intracranial bleed. He also had mechanical fall last week at home. Head CT without acute abnormalities.
-Troponin 0.07 -> 0.01. Does not report any chest pain. Trend to peak. Suspected nonischemic myocardial injury in the setting of acute CHF and chronic kidney disease.
-Discussed with patient and at bedside
HPI: Chris is an 89-year-old male with past medical history of paroxysmal atrial fibrillation not on anticoagulation due to history of intracranial bleed, chronic HFpEF, permanent pacemaker, hypertension, hyperlipidemia, and CKD. Presented to ER
for evaluation of abnormal lab work as outpatient. reported that he has had increased edema, weight gain, and shortness of breath as well as decreased urine output over the past few weeks. As outpatient, Lasix dose was recently reduced from 40
mg to 20 mg. In ER, found to have ANDREA with creatinine 1.9. proBNP 3500. Left lower lobe opacity noted on chest x-ray, consistent with pneumonia. He was given a dose of IV antibiotics in the ER and was admitted for further workup and evaluation.
Cardiology consulted given concern for acute heart failure.
Progress Note - Equipment Detailer
Subjective
Date of Service: June 03, 2024
Patient seen and examined. No acute events overnight. Patient reporting mild improvement in breathing but still noting abdominal distention and trace lower extremity swelling. Denies chest pain, lightheadedness, palpitations, or syncope.
Telemetry demonstrates a paced/V pace with occasional PVC.
Objective
Labs:
06/03/24 06:38
06/03/24 06:38
Labs
Hgb 9.5 g/dL (13.0-18.0) L 06/03/24 06:38
Hct 28.6 % (39.0-52.0) L 06/03/24 06:38
Plt Count 104 10^3/uL (130-400) L 06/03/24 06:38
Sodium 144 mmol/L (135-145) 06/03/24 06:38
Potassium 4.8 mmol/L (3.5-5.1) 06/03/24 06:38
BUN 71 mg/dl (9-20) H 06/03/24 06:38
Creatinine 1.7 mg/dL (0.7-1.3) H 06/03/24 06:38
Glucose 95 mg/dl (70-99) 06/03/24 06:38
Troponins
06/02/24 06/02/24 06/03/24
11:25 20:33 06:38
Troponin I 0.074 H* 0.105 H* 0.137 H*
Vital Signs and I&O:
Vital Signs
Temp Pulse Resp BP Pulse Ox
98.3 F 66 20 123/74 96
06/03/24 12:52 06/03/24 12:52 06/03/24 12:52 06/03/24 12:52 06/03/24 12:52
Vital Signs
Temp Pulse Resp BP Pulse Ox
98.3 F 66 20 123/74 96
06/03/24 12:52 06/03/24 12:52 06/03/24 12:52 06/03/24 12:52 06/03/24 12:52
Intake & Output
06/01/24 06/02/24 06/03/24 06/04/24
06:59 06:59 06:59 06:59
Intake Total 360 / 360
Output Total 100 / 100 605 / 605
Balance -100 / -100 -245 / -245
Physical Exam
Physical Exam
GENERAL: no acute distress, on nasal cannula
EYE: sclera anicteric
NECK: Supple, no carotid bruit appreciated
ENT: normal nose, moist mucosal membranes
CARDIAC: Regular rate and rhythm, +S1/S2, no murmur, rubs, or gallops; left CIED site CDI
CHEST/PULMONARY: Normal effort, decreased breath sounds, mild crackles/rhonchi
ABDOMEN: Soft, without focal tenderness; distended
NEUROLOGICAL: Alert and oriented x3
SKIN: Warm and dry; 1+ pitting edema bilateral lower extremities with chronic stasis erythema bilateral
PSYCH: Normal and appropriate interaction.
--- NOTE | 2024-06-03 13:55 | PTCARENOTE ---
as per requested by md rodriguez, pt with pvr 18ml. pt resting,call hernandez in reach
[2024-06-03] MEDS: TYLENOL 650 MG PO (15:07)
[2024-06-03 15:57] VITALS: BP 110/64
--- NOTE | 2024-06-03 16:03 | PTCARENOTE ---
"pt appearing increasingly more yellow this afternoon. feels pt is a little confused this afternoon,change from am assessment . md [place]ledo aware. us of gallbladder ordered. pt reportedly had owning episode last night. shift report given to "Ryan"lillian HARVEY"
[2024-06-03 19:34] VITALS: BP 120/62
[2024-06-03] MEDS: ZYRTEC 10 MG PO (22:10)
[2024-06-03 23:10] VITALS: BP 126/69
[2024-06-04 03:28] VITALS: BP 131/73
[2024-06-04 05:22] VITALS: BMI 3804.5
[2024-06-04 07:16] LABS: Blood Urea Nitrogen 73 mg/dl (9-20); Calcium 8.8 mg/dl (8.4-10.2); Carbon Dioxide 18 mmol/L (22-30); Chloride 113 mmol/L (98-107); Estimated Creatinine Clearance -3 ml/min; Glucose 82 mg/dl (70-99); Potassium 4.6 mmol/L (3.5-5.1); Sodium 140 mmol/L (135-145)
[2024-06-04 07:40] VITALS: BP 122/64
--- NOTE | 2024-06-04 08:51 | CM ---
Pt seen bedside yesterday w/ spouse. Initial assessment completed.
Pt lives w/ spouse in a 2STH- ramp access
Pt has a walker that he has been using up until last Wednesday in which he began using a wheelchair. 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
Pt was at [facility] in the past
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 Per spouse she has a family friend that assists pt in the home once a week on Mondays and [facility]'s aide comes for 5 hours on Wednesdays and Fridays.
Address, point of contact and insurance verified
PCP: Dr. Laura Estrada
Pharmacy: [facility]
Plan: Home; resume home supports of family friend and [facility] aides
CM will cont to follow for d/c planning
[2024-06-04] MEDS: LIPITOR 10 MG PO (09:25)
[2024-06-04] MEDS: LASIX 40 MG IV (09:26)
[2024-06-04] MEDS: FLUSH (NSS) 1 FLUSH IV (09:26)
--- NOTE | 2024-06-04 10:51 | W.PN.NEPH.PH ---
Today's Communication / Plan
-
Maintain diuretics
Follow BMP
Continue to follow-up postvoid bladder scan in setting of diuresis
Assessment/Plan
-
Impression
Hypoxic respiratory distress
Volume overload/CHF EF 45% speckled appearance of LV myocardium moderate to severe tricuspid regurg
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
Paroxysmal atrial fibrillation
Pacemaker
Peripheral vascular disease
Metabolic acidosis
History of hypertension
Flank pain
History of prostate cancer with radio active seeding
Plan:
ANDREA/CKD/Volume Overload
-I suspect the patient is hypervolemic and will require IV diuresis,echo reviewed with some worsening LV dysfunction
-Maintain 40 mg IV Lasix daily
-Creatinine up to 2.1 and remains nonoiguric ~1300cc
-Holding ARB
-His acute kidney injury could be due to evolving cardiorenal syndrome or possibly even obstructive uropathy given his flank pain and decreased urine output
-CT scan of abdomen and pelvis reviewed: No evidence of obstructive uropathy or stone
-Would bladder scan and have low threshold for Rene catheter if postvoid residual is greater than 400
-UA essentially bland consistent with likely underlying cardiorenal syndrome
-Volume status is a little difficult to understand he may require right heart cath
-
-
Date of Service: June 04, 2024
CC / HPI / ROS
-
Chief Complaint:
ANDREA
History of Present Illness:
Creatinine up to 2.1
Hemodynamically stable
Review of Systems:
Nonoliguric
No fevers
Weight unchanged
Labs
-
Labs:
WBC 5.7 10^3/uL (4.8-10.8) 06/03/24 06:38
RBC 2.70 10^6/uL (4.70-6.10) L 06/03/24 06:38
Hgb 9.5 g/dL (13.0-18.0) L 06/03/24 06:38
Hct 28.6 % (39.0-52.0) L 06/03/24 06:38
Plt Count 104 10^3/uL (130-400) L 06/03/24 06:38
Sodium 140 mmol/L (135-145) 06/04/24 06:42
Potassium 4.6 mmol/L (3.5-5.1) 06/04/24 06:42
Chloride 113 mmol/L (98-107) H 06/04/24 06:42
Carbon Dioxide 18 mmol/L (22-30) L 06/04/24 06:42
BUN 73 mg/dl (9-20) H 06/04/24 06:42
Creatinine 2.1 mg/dL (0.7-1.3) H 06/04/24 06:42
eGFR 29.90 06/04/24 06:42
Glucose 82 mg/dl (70-99) 06/04/24 06:42
Calcium 8.8 mg/dl (8.4-10.2) 06/04/24 06:42
Nlm-S-Vqqorqdnmid Pept 3500 pg/ml 06/02/24 11:25
Albumin 3.5 g/dl (3.5-5.0) 06/03/24 06:38
Physical Exam
-
Vital Signs:
Vital Signs
Temp Pulse Resp BP Pulse Ox
98 F 64 20 122/64 98
06/04/24 07:40 06/04/24 09:26 06/04/24 07:40 06/04/24 09:26 06/04/24 07:40
Cardiovascular:: Regular rate and rhythm
Respiratory:: Bilateral: Coarse
Lung Excursion:: Normal
Abdomen:: Nontender and Soft
Bowel Sounds:: Normal
Extremity Edema:: None: Bilateral:
Rene Catheter: No
[2024-06-04 11:05] VITALS: BP 114/65
--- NOTE | 2024-06-04 14:55 | W.PN.HOSP.TC ---
Today's Communication/Plan
-
CW IV diuresis
Follow US abdomen
Assessment / Plan
Assessment / Plan
Shortness of breath-suspected sec to acute CHF with mid range EF
started noticed him to be little short of breath but the patient declines being short of breath. Lower extremity edema noted but no JVD chest clear. Chest x-ray does not suggest CHF. Elevated BNP which could be function of renal dysfunction.
Learnt he is known to have CHF - dose of lasix decreased to 20mg from 40MG. Denies any prior history of CAD or [place]. EKG shows a small amplitude QRS. Last known echocardiogram from September 2023 shows EF of 59 on Rojas method but visually was 50.
There was some borderline global hypokinesis. LV myocardium had speckled appearance then.
Echo shows mildly reduced LV function now 45%. IVC severely dilated.
A/P CT also shows mod right and small left pleural effusion with cardiomegaly.
Started on IV Lasix. Currently not hypoxic.
Lost 14lbs wt and almost resolved LE edema.
CW diuresis per cards
Indeterminate troponin elevation without chest pain. Suspect function of renal dysfunction and nonischemic myocardial elevation. Repeat troponins noted.
History of paroxysmal atrial fibrillation-not on AC due to history of intracranial bleed. Permanent pacemaker in place. AV paced rhythm noted.
ANDREA on CKD3
renal dysfunction with elevated creatinine BUN and metabolic acidosis. Prior Cr elevation noted per Renal note. He had a history of prostate cancer for which he had radiation. Denies any urinary retention symptoms. has noticed decrease
urine output and also some pressure he needs to apply when urinating.
He also complains of right lower back pain which is new today. Denies any prior history of kidney stones. History of radiates from the right lower back to the right hip area. He had a fall on Wednesday in the bathroom-slip and fall. But he was
ambulating fine without any symptoms of pain according to .
CT of the abdomen pelvis without contrast shows no obstructing stone or hydronephrosis.
No extrarenal losses .
Appt nephro input.
Left basilar opacity noted on this lateral chest [id number] any prior history of pulmonary disease. No cough or fevers. Chest without crackles or wheeze. Afebrile and white count was normal at admission. Clinically not correlating for
infectious pneumonia. Would hold on antibiotics and follow clinical progress and will consider CT of the chest.
Abnormal LFTs - Cholestasis picture noted. With dilated IVC and CHF i suspect passive congestion .No GI symptoms. Check US of biliary system.
Known hypertension apparently on losartan which I would hold.
Full code
Anticipated Discharge: 24 - 48 hours
Subjective/Interval History
-
Date of Service: June 04, 2024
Patient denies shortness of breath. He feels his lower extremity legs are much improved. He lost weight.
Denies any chest pain.
No nausea vomiting.
Objective Data
-
Labs:
Laboratory Results
06/04/24
06:42
Sodium 140
Potassium 4.6
Chloride 113 H
Carbon Dioxide 18 L
BUN 73 H
Creatinine 2.1 H
Glucose 82
Calcium 8.8
Vital Signs:
Vital Signs
Temp Pulse Resp BP Pulse Ox
98.2 F 65 20 114/65 98
06/04/24 11:05 06/04/24 11:05 06/04/24 11:05 06/04/24 11:05 06/04/24 12:23
I&O
06/03/24 06/04/24 06/05/24
06:59 06:59 06:59
Intake Total 960 / 960 180 / 180
Output Total 100 / 100 1395 / 1395 1225 / 1225
Balance -100 / -100 -435 / -435 -1045 / -1045
Review of Systems
-
Constitutional: Denies Fever
EENT: Denies Sore Throat
Respiratory: Denies Cough
Abdomen/GI: Denies Abdominal Pain
Neuro: Denies Dizzy
Physical Exam
-
General: No Apparent Distress
Respiratory: Clear to Auscultation and Non Labored Respirations; Negative Accessory Resp Muscle Use
Cardiac: Regular Rhythm and S1/S2
GI: Soft and Nontender
Neuro: AO x 3
Data Reviewed
-
Labs: Labs Reviewed by me
--- NOTE | 2024-06-04 15:32 | W.PN.CARDCBS ---
Today's Communication / Plan
-
IV diuresis
Monitor renal function electrolytes
Impression / Plan
-
PCP: Dr. Estrada
Cutting Room Supervisor: Dr. Diaz
Impression:
Presented with weight gain, SOB
Acute on chronic HFpEF
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
Elevated troponin, suspected nonischemic myocardial injury
Mechanical fall last week
Paroxysmal atrial fibrillation
Not on OAC due to h/o intracranial bleed
[facility] PPM 10/2023
Hypertension
Hyperlipidemia
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
ECHO 09/23/2023: EF 59%, EF 50% by visual estimate with borderline global hypokinesis, moderate concentric LVH, 'speckled appearance' of LV on echo, enlarged RV, mildly dilated RA, mild MR, aortic sclerosis, mild AR, moderate TR, PAP 25 to 30 mmHg
Echo 06/02/2024: EF 45%, moderate concentric LVH, inferoseptal, basal anteroseptal hypokinesis conduction delay versus global hypokinesis; speckling appearance; enlarged RV with normal systolic function. Mild MR, mild AI, moderate to severe TR
Plan:
-Patient presents with weight gain, shortness of breath, abdominal bloating. His Lasix had been decreased from 40 mg daily to 20 mg daily last month due to creatinine up to 2.1. He is not followed by nephrology as an outpatient
-proBNP 3500. Chest x-ray with left lower lobe pneumonia versus possible effusion. Start 40 mg IV Lasix daily. Nephrology has been consulted, appreciate recommendations
-Follow creatinine with diuresis
-Wean supplemental oxygen as able. Not on home O2
-Echo from 09/2023 as above. Last echo did note 'speckled appearance' of LV on echo, suggestive of possible amyloid, however given advanced age may not work up further.
-Suspected sinus rhythm by EKG. He does have history of paroxysmal A-fib. Would interrogate his device when able. He is not on beta-peggy as outpatient, in setting of heart failure would consider addition if blood pressures able to tolerate.
-He is not chronically on anticoagulation or aspirin due to history of intracranial bleed. He also had mechanical fall last week at home. Head CT without acute abnormalities.
-Troponin 0.07 -> 0.01. Does not report any chest pain. Trend to peak. Suspected nonischemic myocardial injury in the setting of acute CHF and chronic kidney disease.
-Discussed with patient and at bedside
HPI: Chris is an 89-year-old male with past medical history of paroxysmal atrial fibrillation not on anticoagulation due to history of intracranial bleed, chronic HFpEF, permanent pacemaker, hypertension, hyperlipidemia, and CKD. Presented to ER
for evaluation of abnormal lab work as outpatient. reported that he has had increased edema, weight gain, and shortness of breath as well as decreased urine output over the past few weeks. As outpatient, Lasix dose was recently reduced from 40
mg to 20 mg. In ER, found to have ANDREA with creatinine 1.9. proBNP 3500. Left lower lobe opacity noted on chest x-ray, consistent with pneumonia. He was given a dose of IV antibiotics in the ER and was admitted for further workup and evaluation.
Cardiology consulted given concern for acute heart failure.
Progress Note - Cutting Room Supervisor
Subjective
Date of Service: June 04, 2024
Patient seen and examined. No acute events overnight. Patient with roughly 1.2 L output. Mild increase in creatinine however stable. Telemetry demonstrating V paced occasional PVC. Patient reporting mild improvement in shortness of breath,
lower extremity swelling. Reporting significant improvement in energy level. No other complaints at this time.
Objective
Labs:
06/03/24 06:38
06/04/24 06:42
Labs
Hgb 9.5 g/dL (13.0-18.0) L 06/03/24 06:38
Hct 28.6 % (39.0-52.0) L 06/03/24 06:38
Plt Count 104 10^3/uL (130-400) L 06/03/24 06:38
Sodium 140 mmol/L (135-145) 06/04/24 06:42
Potassium 4.6 mmol/L (3.5-5.1) 06/04/24 06:42
BUN 73 mg/dl (9-20) H 06/04/24 06:42
Creatinine 2.1 mg/dL (0.7-1.3) H 06/04/24 06:42
Glucose 82 mg/dl (70-99) 06/04/24 06:42
Troponins
06/02/24 06/02/24 06/03/24
11:25 20:33 06:38
Troponin I 0.074 H* 0.105 H* 0.137 H*
Vital Signs and I&O:
Vital Signs
Temp Pulse Resp BP Pulse Ox
98.2 F 65 20 114/65 98
06/04/24 11:05 06/04/24 11:05 06/04/24 11:05 06/04/24 11:05 06/04/24 12:23
Vital Signs
Temp Pulse Resp BP Pulse Ox
98.2 F 65 20 114/65 98
06/04/24 11:05 06/04/24 11:05 06/04/24 11:05 06/04/24 11:05 06/04/24 12:23
Intake & Output
06/02/24 06/03/24 06/04/24 06/05/24
06:59 06:59 06:59 06:59
Intake Total 960 / 960 180 / 180
Output Total 100 / 100 1395 / 1395 1225 / 1225
Balance -100 / -100 -435 / -435 -1045 / -1045
Physical Exam
Physical Exam
GENERAL: no acute distress, on nasal cannula
EYE: sclera anicteric
NECK: Supple, no carotid bruit appreciated
ENT: normal nose, moist mucosal membranes
CARDIAC: Regular rate and rhythm, +S1/S2, no murmur, rubs, or gallops; left CIED site CDI
CHEST/PULMONARY: Normal effort, decreased breath sounds, mild crackles/rhonchi
ABDOMEN: Soft, without focal tenderness; distended
NEUROLOGICAL: Alert and oriented x3
SKIN: Warm and dry; 1+ pitting edema bilateral lower extremities with chronic stasis erythema bilateral
PSYCH: Normal and appropriate interaction.
[2024-06-04 15:35] VITALS: BP 124/73
[2024-06-04 19:40] VITALS: BP 139/73
[2024-06-04] MEDS: ZYRTEC 10 MG PO (21:35)
[2024-06-04 23:40] VITALS: BP 121/58
[2024-06-05 03:16] VITALS: BP 138/78
[2024-06-05 06:00] VITALS: BMI 3791.6
[2024-06-05 07:50] VITALS: BP 134/77
[2024-06-05 09:38] LABS: Hematocrit 28.9 % (39.0-52.0); Hemoglobin 9.4 g/dL (13.0-18.0); Mean Corp Hgb Conc. 32.5 g/dL (33.0-37.0); Mean Corpuscular Hgb 35.1 pg (27.0-31.0); Mean Corpuscular Volume 107.8 fL (80.0-94.0); Mean Platelet Volume 11.5 fL (7.4-10.4); Platelet Count 103 10^3/uL (130-400); Red Blood Cell Count 2.68 10^6/uL (4.70-6.10); Red Cell Dist. Width 16.4 % (11.5-14.5); White Blood Cell Count 4.8 10^3/uL (4.8-10.8)
[2024-06-05 10:18] LABS: ALT (SGPT) 26 U/L (0-50); AST (SGOT) 49 U/L (17-59); Albumin 3.1 g/dl (3.5-5.0); Alkaline Phosphatase 312 U/L (38-126); Blood Urea Nitrogen 71 mg/dl (9-20); Calcium 8.6 mg/dl (8.4-10.2); Carbon Dioxide 18 mmol/L (22-30); Chloride 112 mmol/L (98-107); Estimated Creatinine Clearance -4 ml/min; Glucose 81 mg/dl (70-99); Potassium 4.4 mmol/L (3.5-5.1); Sodium 142 mmol/L (135-145); Total Bilirubin 2.7 mg/dl (0.2-1.3); Total Protein 6.2 g/dl (6.3-8.2); eGFR 33.72
[2024-06-05] MEDS: LASIX 40 MG IV (10:33)
[2024-06-05] MEDS: LIPITOR 10 MG PO (10:33)
[2024-06-05 11:14] VITALS: BP 125/75
--- NOTE | 2024-06-05 13:30 | CM ---
Patient seen at bedside with physicians and patient also present. Patient pending PT/OT assessment but they did not want to go to [facility] again. CM will continue to follow for discharge planning needs.
Plan; home with VN/aide vs SNF
--- NOTE | 2024-06-05 15:33 | W.PN.NEPH.PH ---
Today's Communication / Plan
-
continue diuretics/daily weights
Assessment/Plan
-
Impression
Hypoxic respiratory distress
Volume overload/CHF EF 45% speckled appearance of LV myocardium moderate to severe tricuspid regurg
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
Paroxysmal atrial fibrillation
Pacemaker
Peripheral vascular disease
Metabolic acidosis
History of hypertension
Flank pain
History of prostate cancer with radio active seeding
Plan:
ANDREA/CKD/Volume Overload=
-Maintain 40 mg IV Lasix daily
-Creatinine 1.9 from 2.1
-Holding ARB
-CT scan of abdomen and pelvis reviewed: No evidence of obstructive uropathy or stone
-Would bladder scan and have low threshold for Rene catheter if postvoid residual is greater than 400
-UA essentially bland consistent with likely underlying cardiorenal syndrome
discussion with family is weight was as low as 170 pounds and up to as high as 195 pounds is currently 191
Continue current diuretics
-
-
Date of Service: June 05, 2024
CC / HPI / ROS
-
Chief Complaint:
ANDREA
History of Present Illness:
Creatinine 2.1>1.9
Hemodynamically stable
Review of Systems:
Nonoliguric
No fevers
Labs
-
Labs:
WBC 4.8 10^3/uL (4.8-10.8) 06/05/24 08:28
RBC 2.68 10^6/uL (4.70-6.10) L 06/05/24 08:28
Hgb 9.4 g/dL (13.0-18.0) L 06/05/24 08:28
Hct 28.9 % (39.0-52.0) L 06/05/24 08:28
Plt Count 103 10^3/uL (130-400) L 06/05/24 08:28
Sodium 142 mmol/L (135-145) 06/05/24 08:28
Potassium 4.4 mmol/L (3.5-5.1) 06/05/24 08:28
Chloride 112 mmol/L (98-107) H 06/05/24 08:28
Carbon Dioxide 18 mmol/L (22-30) L 06/05/24 08:28
BUN 71 mg/dl (9-20) H 06/05/24 08:28
Creatinine 1.9 mg/dL (0.7-1.3) H 06/05/24 08:28
eGFR 33.72 06/05/24 08:28
Glucose 81 mg/dl (70-99) 06/05/24 08:28
Calcium 8.6 mg/dl (8.4-10.2) 06/05/24 08:28
Usq-A-Qopmfpqtzyr Pept 3500 pg/ml 06/02/24 11:25
Albumin 3.1 g/dl (3.5-5.0) L 06/05/24 08:28
Physical Exam
-
Vital Signs:
Vital Signs
Temp Pulse Resp BP Pulse Ox
98.3 F 61 20 125/75 99
06/05/24 11:14 06/05/24 11:14 06/05/24 11:14 06/05/24 11:14 06/05/24 11:14
Respiratory:: Bilateral: CTA
Lung Excursion:: Normal
Abdomen:: Soft
Bowel Sounds:: Normal
Extremity Edema:: None: Bilateral:
Rene Catheter: No
[2024-06-05 15:38] VITALS: BP 123/62
--- NOTE | 2024-06-05 16:39 | W.PN.CARDCBS ---
Today's Communication / Plan
-
Cont IV Lasix diuresis, cr is improved slightly
Appreciate nephrology input.
Sinus with hx of PAFib. Interrogate PPM
He is not chronically on anticoagulation or aspirin due to history of intracranial bleed.
He also had mechanical fall last week at home. Head CT without acute abnormalities.
Echo May 2024 with EF 45% and speckled appearance of LV, suggestive of possible amyloid, however given advanced age further work up has not been planned.
Cont med tx of nonMI trop. 0.13 has not yet peaked. Check trop in AM.
Discussed with patient and at bedside and fam at bedside.
Impression / Plan
-
.
PCP: Dr. Estrada
Customer Care Manager: Dr. Diaz
Impression:
Presented with weight gain, SOB
Acute on chronic HFpEF
EF 45%
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
Elevated troponin, suspected nonischemic myocardial injury
Mechanical fall last week
Paroxysmal atrial fibrillation
Not on OAC due to h/o intracranial bleed
[facility] PPM 10/2023
Hypertension
Hyperlipidemia
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
ECHO 09/23/2023: EF 59%, EF 50% by visual estimate with borderline global hypokinesis, moderate concentric LVH, 'speckled appearance' of LV on echo, enlarged RV, mildly dilated RA, mild MR, aortic sclerosis, mild AR, moderate TR, PAP 25 to 30 mmHg
Echo 06/02/2024: EF 45%, moderate concentric LVH, inferoseptal, basal anteroseptal hypokinesis conduction delay versus global hypokinesis; speckling appearance; enlarged RV with normal systolic function. Mild MR, mild AI, moderate to severe TR
Plan:
-Patient presented with weight gain, shortness of breath, abdominal bloating. His Lasix had been decreased from 40 mg daily to 20 mg daily last month due to creatinine up to 2.1. He is not followed by nephrology as an outpatient. proBNP 3500.
Cont IV Lasix diuresis, cr is improved slightly
Appreciate nephrology input.
Sinus with hx of PAFib. Interrogate PPM
He is not chronically on anticoagulation or aspirin due to history of intracranial bleed.
He also had mechanical fall last week at home. Head CT without acute abnormalities.
Echo May 2024 with EF 45% and speckled appearance of LV, suggestive of possible amyloid, however given advanced age further work up has not been planned.
Cont med tx of nonMI trop. 0.13 has not yet peaked. Check trop in AM.
Discussed with patient and at bedside and fam at bedside.
HPI: Chris is an 89-year-old male with past medical history of paroxysmal atrial fibrillation not on anticoagulation due to history of intracranial bleed, chronic HFpEF, permanent pacemaker, hypertension, hyperlipidemia, and CKD. Presented to ER
for evaluation of abnormal lab work as outpatient. reported that he has had increased edema, weight gain, and shortness of breath as well as decreased urine output over the past few weeks. As outpatient, Lasix dose was recently reduced from 40
mg to 20 mg. In ER, found to have ANDREA with creatinine 1.9. proBNP 3500. Left lower lobe opacity noted on chest x-ray, consistent with pneumonia. He was given a dose of IV antibiotics in the ER and was admitted for further workup and evaluation.
Cardiology consulted given concern for acute heart failure.
Progress Note - Customer Care Manager
Subjective
Date of Service: June 05, 2024
Pt seen and examined. No complaints. No chest pain or shortness of breath.
Objective
Labs:
06/05/24 08:28
06/05/24 08:28
Labs
Hgb 9.4 g/dL (13.0-18.0) L 06/05/24 08:28
Hct 28.9 % (39.0-52.0) L 06/05/24 08:28
Plt Count 103 10^3/uL (130-400) L 06/05/24 08:28
Sodium 142 mmol/L (135-145) 06/05/24 08:28
Potassium 4.4 mmol/L (3.5-5.1) 06/05/24 08:28
BUN 71 mg/dl (9-20) H 06/05/24 08:28
Creatinine 1.9 mg/dL (0.7-1.3) H 06/05/24 08:28
Glucose 81 mg/dl (70-99) 06/05/24 08:28
Troponins
06/02/24 06/03/24
20:33 06:38
Troponin I 0.105 H* 0.137 H*
Vital Signs and I&O:
Vital Signs
Temp Pulse Resp BP Pulse Ox
98.2 F 66 20 123/62 98
06/05/24 15:38 06/05/24 15:38 06/05/24 15:38 06/05/24 15:38 06/05/24 15:38
Vital Signs
Temp Pulse Resp BP Pulse Ox
98.2 F 66 20 123/62 98
06/05/24 15:38 06/05/24 15:38 06/05/24 15:38 06/05/24 15:38 06/05/24 15:38
Intake & Output
06/03/24 06/04/24 06/05/24 06/06/24
06:59 06:59 06:59 06:59
Intake Total 960 / 960 660 / 660 360 / 360
Output Total 100 / 100 1395 / 1395 1925 / 1925 950 / 950
Balance -100 / -100 -435 / -435 -1265 / -1265 -590 / -590
Physical Exam
Physical Exam
General: No acute distress, AAOX3
Neck: Negative JVD
Heart: Regular, Negative S3 positive S1/S2, Negative S4, No murmur
Lungs: CTA b/l, negative wheezes/rales/rhonchi
Abd: Positive BS, NT/ND, neg rebound/rigidity/guarding
Ext: Negative cyanosis/clubbing/edema
Neuro: nonfocal
--- NOTE | 2024-06-05 18:21 | W.PN.HOSP.TC ---
Addendum entered and electronically signed by Radha Matthew MD 06/05/24 20:53:
I saw and evaluated the patient independently. I reviewed the resident�s note and agree with findings and plan as documented by Dr. Campbell.
GENERAL: well developed, well nourished, male in no apparent distress
HEENT: NC/AT
HEART: regular rate and rhythm, +S1, +S2
LUNGS : clear to auscultation bilaterally
ABDOM: soft, nontender, nondistended, + bowel sounds
EXT: no cyanosis, clubbing, or edema
NEUROLOGIC: grossly intact
ANDREA on CKD3--likely due to volume overload and need for diuresis--apprec renal--cont diuresis--apprec cards--hold ARB--follow creat
acute on chronic exacerbation of HFpEF--EF 50%--Echo NOW shows mildly reduced LV function now 45%. IVC severely dilated--Speckled appearance of LV suggestive of amyloidosis--A/P CT also shows mod right and small left pleural effusion with
cardiomegaly-- not hypoxemic--cont lasix--follow creat
Paroxysmal A-fib-- Patient not currently on AC due to hx of ICH earlier this year--- Cardiology will interrogate PPM
nonischemic myocardial injury troponin elevation -- trend but likely due to renal dysfunction--apprec renal/cards
DVT proph
code status --Full code
Original Note:
Today's Communication/Plan
-
.
Assessment / Plan
Assessment / Plan
1. History of CHF with EF 50%
Echo shows mildly reduced LV function now 45%. IVC severely dilated.
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
A/P CT also shows mod right and small left pleural effusion with cardiomegaly.
Started on IV Lasix. Currently not hypoxic.
Appreciate cards; continue IV Lasix in the setting of improving Cr.
2. Paroxysmal A-fib
- Patient not currently on AC 2/2 hx of ICH earlier this year.
- Cardiology will interogate PPM
3. Elevated troponin
- Patient asymptomatic.
- Possible consequence of renal dysfunction.
- Follow up troponins
4. ANDREA on CKD3
- Appreciate nephrology
- Hold ARB, continue diuresis
- CT shows no obstructive uropathy -
- Recommended PV bladder scan; low thershold for FC if PVR > 400
Full code
Anticipated Discharge: 24 - 48 hours
Subjective/Interval History
-
Date of Service: June 05, 2024
Patient states he has a mild cough, but other leung feels okay and feels he is ready to go home today. Patient's at bedside and disagrees, notes his history of SOB, oliguria over the past several weeks. Patient states that he has been out of bed
to use the commode but has not been out of bed much outside of that.
Objective Data
-
Labs:
Laboratory Results
06/05/24
08:28
WBC 4.8
Hgb 9.4 L
Hct 28.9 L
Plt Count 103 L
Sodium 142
Potassium 4.4
Chloride 112 H
Carbon Dioxide 18 L
BUN 71 H
Creatinine 1.9 H
Glucose 81
Calcium 8.6
Total Bilirubin 2.7 H
AST 49
ALT 26
Alkaline Phosphatase 312 H
Vital Signs:
Vital Signs
Temp Pulse Resp BP Pulse Ox
98.2 F 66 20 123/62 98
06/05/24 15:38 06/05/24 15:38 06/05/24 15:38 06/05/24 15:38 06/05/24 15:38
I&O
06/04/24 06/05/24 06/06/24
06:59 06:59 06:59
Intake Total 960 / 960 660 / 660 600 / 600
Output Total 1395 / 1395 1925 / 1925 1050 / 1050
Balance -435 / -435 -1265 / -1265 -450 / -450
Review of Systems
-
History Source: Patient and Family
Constitutional: Reports No Symptoms
Respiratory: Reports Cough and Other (mild SOB)
Cardiac: Reports No Symptoms
Abdomen/GI: Reports No Symptoms
Musculoskeletal: Reports No Symptoms
Neuro: Reports No Symptoms
Physical Exam
-
General: Well Developed, No Apparent Distress and Comfortable
HEENT: Normocephalic and Atraumatic
Respiratory: Clear to Auscultation
Cardiac: Regular Rhythm and S1/S2
GI: Soft and Nontender
Musculoskeletal: No Clubbing, No Cyanosis and No Edema
Skin: Warm and Dry
Neuro: Awake and Alert
Psych: Calm
Data Reviewed
-
Labs: Labs Reviewed by me
[2024-06-05] MEDS: ZYRTEC 10 MG PO (19:44)
[2024-06-05 19:45] VITALS: BP 115/58
[2024-06-05 23:25] VITALS: BP 115/63
[2024-06-06] VITALS (8 sets, daily range): BP systolic 112–125; BP diastolic 55–68; PULSE 76–78; O2SAT 95; BMI 3794.0
[2024-06-06 08:11] LABS: % Lymphocytes 16.3 % (20.5-51.1); % Neutrophils 60.6 % (42.2-75.2); Hematocrit 29.7 % (39.0-52.0); Hemoglobin 9.8 g/dL (13.0-18.0); Mean Corpuscular Volume 106.1 fL (80.0-94.0); Mean Platelet Volume 11.6 fL (7.4-10.4); Platelet Count 120 10^3/uL (130-400); White Blood Cell Count 4.7 10^3/uL (4.8-10.8)
[2024-06-06 08:12] LABS: % Basophils 2.3 % (0-2); % Eosinophils 10.6 % (0-6); % Immature Granulocytes 0.2 % (0-0.5); Absolute Basophils 0.1 10^3/uL (0-0.2); Absolute Eosinophils 0.5 10^3/uL (0-0.7); Absolute Lymphocytes 0.8 10^3/uL (1.2-3.4); Absolute Monocytes 0.5 10^3/uL (0.1-0.6); Absolute Neutrophils 2.9 10^3/uL (1.4-6.5); Nucleated Red Blood Cells % 0 % (-)
[2024-06-06 08:35] LABS: Troponin I 0.084 ng/ml
[2024-06-06 08:46] LABS: ALT (SGPT) 30 U/L (0-50); AST (SGOT) 61 U/L (17-59); Albumin 3.4 g/dl (3.5-5.0); Alkaline Phosphatase 363 U/L (38-126); Blood Urea Nitrogen 69 mg/dl (9-20); Calcium 8.6 mg/dl (8.4-10.2); Carbon Dioxide 19 mmol/L (22-30); Chloride 112 mmol/L (98-107); Estimated Creatinine Clearance -4 ml/min; Glucose 87 mg/dl (70-99); Potassium 4.3 mmol/L (3.5-5.1); Sodium 142 mmol/L (135-145); Total Bilirubin 2.6 mg/dl (0.2-1.3); Total Protein 6.4 g/dl (6.3-8.2); eGFR 33.72
[2024-06-06] MEDS: LASIX 40 MG IV ×2 (09:10→17:47)
[2024-06-06] MEDS: LIPITOR 10 MG PO (09:10)
--- NOTE | 2024-06-06 14:17 | W.PN.CARDCBS ---
Addendum entered and electronically signed by Stanislaw Diaz MD 06/06/24 14:31:
I saw and examined the patient.
The [employer] Manager's note was reviewed and I agree with the note.
Comment:
GEN: No distress, awake, Ox3
HEENT: supple, anicteric, mmm
LUNGS: bilat rhonchi
CV: Reg, S1/S2, 1/6 syst LSB, S4+
ABD: soft, BS+, NT/ND
EXT: trace edema
NEURO: Gross non-focal
SKIN: No rash
Plan:
Slowly improving. Weight still not optimal. Will increase Lasix to 40 mg IV twice daily.
LVEF by report 45%. Will review images. Questionable amyloid.
Add Toprol 12.5 mg daily with mildly reduced EF.
His creatinine overall remained stable at 1.9. He is very weak and frail. Needs PT.
Abnormal troponin is likely nonischemic myocardial injury.
Original Note:
Today's Communication / Plan
-
increase lasix
add toprol
follow Cr
consider neuro evaluation
Impression / Plan
-
.
PCP: Dr. Estrada
Sheet Metal Layout Mechanic: Dr. Diaz
Impression:
Presented with weight gain, SOB
Acute on chronic HFpEF
EF 45%
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
Elevated troponin, suspected nonischemic myocardial injury
Mechanical fall last week
Paroxysmal atrial fibrillation
Not on OAC due to h/o intracranial bleed
[facility] PPM 10/2023
Hypertension
Hyperlipidemia
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
ECHO 09/23/2023: EF 59%, EF 50% by visual estimate with borderline global hypokinesis, moderate concentric LVH, 'speckled appearance' of LV on echo, enlarged RV, mildly dilated RA, mild MR, aortic sclerosis, mild AR, moderate TR, PAP 25 to 30 mmHg
Echo 06/02/2024: EF 45%, moderate concentric LVH, inferoseptal, basal anteroseptal hypokinesis conduction delay versus global hypokinesis; speckling appearance; enlarged RV with normal systolic function. Mild MR, mild AI, moderate to severe TR
Plan:
-Patient presented with weight gain, shortness of breath, abdominal bloating. His Lasix had been decreased from 40 mg daily to 20 mg daily last month due to creatinine up to 2.1. He is not followed by nephrology as an outpatient. proBNP 3500.
-Weight has been stable last 48 hours although he reports good urine output. Reports a dry weight of 178 pounds. Creatinine stable at 1.9. Will increase IV Lasix to 40 mg twice daily and assess response. Nephrology also following.
-Remains in V paced rhythm on review of telemetry with occasional PVCs/couplets. EF by echo 05/1345%. Add Toprol 12.5 mg daily
-He is not on aspirin or anticoagulation given history of intracranial bleed. Family at bedside reports he is scheduled to see neurology 06/23/2024 as an outpatient, however has been having hallucinations while inpatient. Would consider inpatient
evaluation. had fall at home last week, head CT this admission was without acute abnormalities
-Concern by echo for possible amyloid with speckled appearance of LV. Given advanced age, would not move forward with further workup
-trop peaked at 0.137 and trending down. no CP. suspected nonischemic myocardial injury. continue statin. BB added this admit.
-Discussed with patient and family at bedside.
HPI: Chris is an 89-year-old male with past medical history of paroxysmal atrial fibrillation not on anticoagulation due to history of intracranial bleed, chronic HFpEF, permanent pacemaker, hypertension, hyperlipidemia, and CKD. Presented to ER
for evaluation of abnormal lab work as outpatient. reported that he has had increased edema, weight gain, and shortness of breath as well as decreased urine output over the past few weeks. As outpatient, Lasix dose was recently reduced from 40
mg to 20 mg. In ER, found to have ANDREA with creatinine 1.9. proBNP 3500. Left lower lobe opacity noted on chest x-ray, consistent with pneumonia. He was given a dose of IV antibiotics in the ER and was admitted for further workup and evaluation.
Cardiology consulted given concern for acute heart failure.
Progress Note - Sheet Metal Layout Mechanic
Subjective
Date of Service: June 06, 2024
reports remains with bloating in belly. no CP, SOB. reports good urine output
Objective
Labs:
06/06/24 07:40
06/06/24 07:41
Labs
Hgb 9.8 g/dL (13.0-18.0) L 06/06/24 07:40
Hct 29.7 % (39.0-52.0) L 06/06/24 07:40
Plt Count 120 10^3/uL (130-400) L 06/06/24 07:40
Sodium 142 mmol/L (135-145) 06/06/24 07:41
Potassium 4.3 mmol/L (3.5-5.1) 06/06/24 07:41
BUN 69 mg/dl (9-20) H 06/06/24 07:41
Creatinine 1.9 mg/dL (0.7-1.3) H 06/06/24 07:41
Glucose 87 mg/dl (70-99) 06/06/24 07:41
Troponins
06/06/24
07:40
Troponin I 0.084 H*
Vital Signs and I&O:
Vital Signs
Temp Pulse Resp BP Pulse Ox
98.3 F 60 18 120/65 100
06/06/24 11:37 06/06/24 11:37 06/06/24 11:37 06/06/24 11:37 06/06/24 11:37
Vital Signs
Temp Pulse Resp BP Pulse Ox
98.3 F 60 18 120/65 100
06/06/24 11:37 06/06/24 11:37 06/06/24 11:37 06/06/24 11:37 06/06/24 11:37
Intake & Output
06/04/24 06/05/24 06/06/24 06/07/24
07:59 07:59 07:59 07:59
Intake Total 960 / 960 660 / 660 1560 / 1560
Output Total 1015 / 1015 1925 / 1925 1575 / 1575
Balance -55 / -55 -1265 / -1265 -15 / -15
Physical Exam
Physical Exam
GEN: No distress, awake, alert, oriented to self, place, month/day (said year was 1941)
HEENT: supple, anicteric, mmm, eomi
LUNGS: decreased RLB, no wheezes
CV: Reg, S1/S2, no murmur
ABD: soft, BS+, NT, some firmness of abd to palpation
EXT: No cyanosis, clubbing. trace edema of B/L LE
NEURO: Gross non-focal
SKIN: Warm, pink, dry. No rash
[2024-06-06] MEDS: TOPROL XL 12.5 MG PO (14:23)
--- NOTE | 2024-06-06 15:00 | CHAP ---
Msgr. Miles Adame of [facility] in [place] gave Chris the Sacrament of the Sick, Holy Communion and an Apostolic Pardon. Exact time uncertain.
--- NOTE | 2024-06-06 16:30 | W.PN.NEPH.PH ---
Today's Communication / Plan
-
continue diuretics may need to increase dose for optimal weight loss
Assessment/Plan
-
Impression
Hypoxic respiratory distress
Volume overload/CHF EF 45% speckled appearance of LV myocardium moderate to severe tricuspid regurg
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
Paroxysmal atrial fibrillation
Pacemaker
Peripheral vascular disease
Metabolic acidosis
History of hypertension
Flank pain
History of prostate cancer with radio active seeding
Plan:
ANDREA/CKD/Volume Overload=
-Maintain 40 mg IV Lasix daily
-Creatinine 1.9 from 2.1
-Holding ARB
-CT scan of abdomen and pelvis reviewed: No evidence of obstructive uropathy or stone
-Would bladder scan and have low threshold for Rene catheter if postvoid residual is greater than 400
-UA essentially bland consistent with likely underlying cardiorenal syndrome
discussion with family is weight was as low as 170 pounds and up to as high as 195 pounds is currently 191
Continue current diuretics
creatinine remains stable on diuretics
not much decrease in weight although clinically comfortable
-
-
Date of Service: June 06, 2024
CC / HPI / ROS
-
Chief Complaint:
ANDREA
History of Present Illness:
Creatinine 2.1>1.9
Hemodynamically stable
Review of Systems:
Nonoliguric
No fevers
Labs
-
Labs:
WBC 4.7 10^3/uL (4.8-10.8) L 06/06/24 07:40
RBC 2.80 10^6/uL (4.70-6.10) L 06/06/24 07:40
Hgb 9.8 g/dL (13.0-18.0) L 06/06/24 07:40
Hct 29.7 % (39.0-52.0) L 06/06/24 07:40
Plt Count 120 10^3/uL (130-400) L 06/06/24 07:40
Sodium 142 mmol/L (135-145) 06/06/24 07:41
Potassium 4.3 mmol/L (3.5-5.1) 06/06/24 07:41
Chloride 112 mmol/L (98-107) H 06/06/24 07:41
Carbon Dioxide 19 mmol/L (22-30) L 06/06/24 07:41
BUN 69 mg/dl (9-20) H 06/06/24 07:41
Creatinine 1.9 mg/dL (0.7-1.3) H 06/06/24 07:41
eGFR 33.72 06/06/24 07:41
Glucose 87 mg/dl (70-99) 06/06/24 07:41
Calcium 8.6 mg/dl (8.4-10.2) 06/06/24 07:41
Fox-X-Pgncqwoaenl Pept 3500 pg/ml 06/02/24 11:25
Albumin 3.4 g/dl (3.5-5.0) L 06/06/24 07:41
Physical Exam
-
Vital Signs:
Vital Signs
Temp Pulse Resp BP Pulse Ox
97.6 F 62 20 117/68 100
06/06/24 16:27 06/06/24 16:27 06/06/24 16:27 06/06/24 16:27 06/06/24 16:27
--- NOTE | 2024-06-06 17:27 | W.PN.HOSP.TC ---
Addendum entered and electronically signed by Radha Matthew MD 06/06/24 18:04:
I saw and evaluated the patient independently. I reviewed the resident�s note and agree with findings and plan as documented by Dr. Campbell.
GENERAL: well developed, well nourished, male in no apparent distress
HEENT: NC/AT
HEART: regular rate and rhythm, +S1, +S2
LUNGS : clear to auscultation bilaterally
ABDOM: soft, nontender, nondistended, + bowel sounds
EXT: no cyanosis, clubbing, or edema
NEUROLOGIC: grossly intact
ANDREA on CKD3--likely due to volume overload and need for diuresis--apprec renal--cont diuresis--apprec cards--hold ARB--follow creat
acute on chronic exacerbation of HFpEF--EF 50%--Echo NOW shows mildly reduced LV function now 45%. IVC severely dilated--Speckled appearance of LV suggestive of amyloidosis--A/P CT also shows mod right and small left pleural effusion with
cardiomegaly-- not hypoxemic--cont lasix--follow creat
Paroxysmal A-fib-- Patient not currently on AC due to hx of ICH earlier this year--- Cardiology will interrogate PPM
nonischemic myocardial injury troponin elevation -- trend but likely due to renal dysfunction--apprec renal/cards
DVT proph
code status --Full code
pt wants to know what the d/c plan is--communicated waiting for cards, renal, labs, etc--possible SNF at d/c
Original Note:
Today's Communication/Plan
-
.
Assessment / Plan
Assessment / Plan
1. History of CHF with EF 50%
Echo shows mildly reduced LV function now 45%. IVC severely dilated.
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
A/P CT also shows mod right and small left pleural effusion with cardiomegaly.
Started on IV Lasix. Currently not hypoxic.
Appreciate cards; continue IV Lasix in the setting of improving Cr.
- Lasix increased to 40mg IV BID since weight still not optimal
2. Paroxysmal A-fib
- Patient not currently on AC 2/2 hx of ICH earlier this year.
- Cardiology will interogate PPM
3. Elevated troponin
- Patient asymptomatic.
- Possible consequence of renal dysfunction or nonischemic myocardial injury.
- Troponin today 0.084, downtrending.
4. ANDREA on CKD3
- Appreciate nephrology
- Hold ARB, continue diuresis
- CT shows no obstructive uropathy -
- Recommended PV bladder scan; low thershold for FC if PVR > 400
- In agreement with increased Lasix dose
5. Hallucinations
- Consulted Psych for evaluation.
Full code
Anticipated Discharge: 24 - 48 hours
Subjective/Interval History
-
Date of Service: June 06, 2024
Patient states he has 'felt better, but also felt worse'. No specific complaints this morning, but notes that has not been seen by PT, and thus has not been up and walking other than to use the commode. Denies chest pain, shortness of breath, and
endorses good urination in the interim.
Per family patient had one hallucination one this morning about 'the hospital was being robbed'. Unclear if this was a witnessed hallucination, delirium or a recantation of a dream.
Objective Data
-
Labs:
Laboratory Results
06/06/24 06/06/24
07:40 07:41
WBC 4.7 L
Hgb 9.8 L
Hct 29.7 L
Plt Count 120 L
Sodium 142
Potassium 4.3
Chloride 112 H
Carbon Dioxide 19 L
BUN 69 H
Creatinine 1.9 H
Glucose 87
Calcium 8.6
Total Bilirubin 2.6 H
AST 61 H
ALT 30
Alkaline Phosphatase 363 H
Vital Signs:
Vital Signs
Temp Pulse Resp BP Pulse Ox
97.6 F 62 20 117/68 100
06/06/24 16:27 06/06/24 16:27 06/06/24 16:27 06/06/24 16:27 06/06/24 16:27
I&O
06/05/24 06/06/24 06/07/24
06:59 06:59 06:59
Intake Total 660 / 660 1560 / 1560
Output Total 1925 / 1925 1575 / 1575
Balance -1265 / -1265 -15 / -15
Review of Systems
-
History Source: Patient
Constitutional: Reports No Symptoms
Respiratory: Reports Cough
Cardiac: Reports No Symptoms
Genitourinary: Reports No Symptoms
Neuro: Reports No Symptoms
Physical Exam
-
General: Well Developed and No Apparent Distress
HEENT: Normocephalic and Moist Mucous Membranes
Respiratory: Clear to Auscultation and Other (no rales, no rhonchi; mild decreased sounds at lung bases)
Cardiac: Regular Rhythm and S1/S2
Musculoskeletal: No Clubbing, No Cyanosis and Other (trace edema b/l)
Skin: Warm and Dry
Neuro: Awake, Alert and Oriented
Psych: Calm
Data Reviewed
-
Labs: Labs Reviewed by me and Discussed with Patient
--- NOTE | 2024-06-06 17:52 | CM ---
Patient and patient seen at bedside. Patient was considering [facility] vs home. Patient talked to PT and was uncertain of what she wanted. referral sent to [facility] pending update. CM will continue to follow for discharge
planning needs.
Plan; SNF vs home with VN
[2024-06-06] MEDS: ZYRTEC 10 MG PO (19:41)
[2024-06-07] MEDS: HALDOL 1 MG IV (01:31)
--- NOTE | 2024-06-07 01:35 | PTCARENOTE ---
Addendum entered by Fernanda Mcdonnell RN 06/07/24 05:59:
Pt still continuing to whistle and yell out 1 hour post IV haldol dose was administered. Pt brought out to nurses station to decrease disruption/noise to other patients that were complaining. Pt eventually did fall asleep for about one hour out in
nursing station. Pt now back in bed, resting comfortably.
Original Note:
Pt oriented x2 and cooperative in beginning of shift. After 22:00, pt attempting to get out of bed multiple times, whistling non stop, yelling, attempted to kick and spit at multiple staff members and threatening to have us 'taken out by 15 big
men'. Attempted to reorient multiple times, pt unwilling to listen and yells over staff talking to him. Continues to be disruptive to roommate. CYBER SECURITY ARCHITECT notified, 1 mg IV Haldol given as ordered. EKG ordered for AM per protocol. Plan of care ongoing
[2024-06-07 03:25] VITALS: BP 108/56
[2024-06-07 06:00] VITALS: BMI 3709.3
[2024-06-07 07:58] VITALS: BP 134/77
[2024-06-07 08:53] LABS: Hematocrit 29.8 % (39.0-52.0); Hemoglobin 9.6 g/dL (13.0-18.0); Mean Corp Hgb Conc. 32.2 g/dL (33.0-37.0); Mean Corpuscular Hgb 34.5 pg (27.0-31.0); Mean Corpuscular Volume 107.2 fL (80.0-94.0); Mean Platelet Volume 11.4 fL (7.4-10.4); Platelet Count 120 10^3/uL (130-400); Red Blood Cell Count 2.78 10^6/uL (4.70-6.10); Red Cell Dist. Width 15.9 % (11.5-14.5); White Blood Cell Count 4.4 10^3/uL (4.8-10.8)
[2024-06-07 09:34] LABS: ALT (SGPT) 29 U/L (0-50); AST (SGOT) 56 U/L (17-59); Albumin 3.2 g/dl (3.5-5.0); Alkaline Phosphatase 339 U/L (38-126); Blood Urea Nitrogen 69 mg/dl (9-20); Calcium 8.5 mg/dl (8.4-10.2); Carbon Dioxide 18 mmol/L (22-30); Chloride 110 mmol/L (98-107); Estimated Creatinine Clearance -4 ml/min; Glucose 86 mg/dl (70-99); Sodium 140 mmol/L (135-145); Total Bilirubin 2.4 mg/dl (0.2-1.3); Total Protein 6.3 g/dl (6.3-8.2); eGFR 35.98
[2024-06-07] MEDS: LIPITOR 10 MG PO (09:54)
[2024-06-07] MEDS: TOPROL XL 12.5 MG PO (09:54)
[2024-06-07] MEDS: LASIX 40 MG IV (09:55)
[2024-06-07 11:09] VITALS: BP 110/68
--- NOTE | 2024-06-07 12:17 | W.PN.NEPH.PH ---
Today's Communication / Plan
-
Maintain 40 mg IV twice daily of Lasix
Will add oral bicarbonate if metabolic acidosis persist
Creatinine slowly improving to 1.8
Assessment/Plan
-
Impression
Hypoxic respiratory distress
Volume overload/CHF EF 45% speckled appearance of LV myocardium moderate to severe tricuspid regurg
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
Paroxysmal atrial fibrillation
Pacemaker
Peripheral vascular disease
Metabolic acidosis
History of hypertension
Flank pain
History of prostate cancer with radio active seeding
Plan:
ANDREA/CKD/Volume Overload=
-Maintain 40 mg IV Lasix BID
-Creatinine 1.8 from 2.1, uop ~2300
-Holding ARB
-CT scan of abdomen and pelvis reviewed: No evidence of obstructive uropathy or stone
-UA essentially bland consistent with likely underlying cardiorenal syndrome
discussion with family is weight was as low as 170 pounds and up to as high as 195 pounds is currently 191
Continue current diuretics
creatinine remains stable on diuretics
Weights drowsing and now grossly nonoliguric with escalated IV Lasix administration
-
-
Date of Service: June 07, 2024
CC / HPI / ROS
-
Chief Complaint:
ANDREA
History of Present Illness:
Creatinine 2.1>1.8
Hemodynamically stable
Review of Systems:
Nonoliguric greater than 2 L
No fevers
Weights down
Labs
-
Labs:
WBC 4.4 10^3/uL (4.8-10.8) L 06/07/24 08:13
RBC 2.78 10^6/uL (4.70-6.10) L 06/07/24 08:13
Hgb 9.6 g/dL (13.0-18.0) L 06/07/24 08:13
Hct 29.8 % (39.0-52.0) L 06/07/24 08:13
Plt Count 120 10^3/uL (130-400) L 06/07/24 08:13
Sodium 140 mmol/L (135-145) 06/07/24 08:13
Potassium 4.0 mmol/L (3.5-5.1) 06/07/24 08:13
Chloride 110 mmol/L (98-107) H 06/07/24 08:13
Carbon Dioxide 18 mmol/L (22-30) L 06/07/24 08:13
BUN 69 mg/dl (9-20) H 06/07/24 08:13
Creatinine 1.8 mg/dL (0.7-1.3) H 06/07/24 08:13
eGFR 35.98 06/07/24 08:13
Glucose 86 mg/dl (70-99) 06/07/24 08:13
Calcium 8.5 mg/dl (8.4-10.2) 06/07/24 08:13
Tiu-M-Hpynufwjfgn Pept 3500 pg/ml 06/02/24 11:25
Albumin 3.2 g/dl (3.5-5.0) L 06/07/24 08:13
Physical Exam
-
Vital Signs:
Vital Signs
Temp Pulse Resp BP Pulse Ox
98.1 F 62 22 110/68 97
06/07/24 11:09 06/07/24 11:09 06/07/24 11:09 06/07/24 11:09 06/07/24 11:09
Cardiovascular:: Regular rate and rhythm
Respiratory:: Bilateral: Coarse
Lung Excursion:: Normal
Abdomen:: Nontender and Soft
Bowel Sounds:: Normal
Extremity Edema:: +1: Bilateral:
Rene Catheter: No
--- NOTE | 2024-06-07 12:44 | W.PN.HOSP.TC ---
Addendum entered and electronically signed by Radha Matthew MD 06/07/24 13:54:
I saw and evaluated the patient independently. I reviewed the resident�s note and agree with findings and plan as documented by Dr. Campbell.
GENERAL: well developed, well nourished, male in no apparent distress--very sleepy, sitting in the chair
HEENT: NC/AT
HEART: regular rate and rhythm, +S1, +S2
LUNGS : clear to auscultation bilaterally
ABDOM: soft, nontender, nondistended, + bowel sounds
EXT: no cyanosis, clubbing, or edema
NEUROLOGIC: grossly intact
ANDREA on CKD3--likely due to volume overload and need for diuresis--apprec renal--cont diuresis--apprec cards--hold ARB--follow creat
acute on chronic exacerbation of HFpEF--EF 50%--Echo NOW shows mildly reduced LV function now 45%. IVC severely dilated--Speckled appearance of LV suggestive of amyloidosis--A/P CT also shows mod right and small left pleural effusion with
cardiomegaly-- not hypoxemic--cont lasix--follow creat--recheck CXR (pt coughing)
nighttime agitation/Hallucinations/Sundowning--s/p one dose of haldol (pt didn't sleep at night)--apprec psych--trial of risperdal
Paroxysmal A-fib-- Patient not currently on AC due to hx of ICH earlier this year--- Cardiology will interrogate PPM
nonischemic myocardial injury troponin elevation -- trend but likely due to renal dysfunction--apprec renal/cards
DVT proph
code status --Full code
Original Note:
Today's Communication/Plan
-
Continue Lasix; CXR today; to be seen by Psych today
Assessment / Plan
Assessment / Plan
1. History of CHF with EF 50%
Echo shows mildly reduced LV function now 45%. IVC severely dilated.
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
A/P CT also shows mod right and small left pleural effusion with cardiomegaly.
Started on IV Lasix. Currently not hypoxic.
Appreciate cards; continue IV Lasix in the setting of improving Cr.
- Lasix increased to 40mg IV BID since weight still not optimal
- Monitor I/O, weights
- Creatinine continues to improve, 1.8 today.
2. Paroxysmal A-fib
- Patient not currently on AC 2/2 hx of ICH earlier this year.
- Cardiology will interogate PPM
3. Elevated troponin (resolved)
- Patient asymptomatic.
- Possible consequence of renal dysfunction or nonischemic myocardial injury.
- Troponin yesterday 0.084, downtrending.
4. ANDREA on CKD3
- Appreciate nephrology
- Hold ARB, continue diuresis
- CT shows no obstructive uropathy -
- Recommended PV bladder scan; low thershold for FC if PVR > 400
- In agreement with increased Lasix dose
- Creatinine continues to improve.
- Per nephro, consider bicarbonate if metabolic acidosis persists
5. Hallucinations/Sundowning
- Patient continues to have events nightly.
- One dose Haldol given last night; consider PRN vs. standing order Seroquel.
- Consulted Psych for evaluation and recommendations.
Full code
Anticipated Discharge: 24 - 48 hours
Subjective/Interval History
-
Date of Service: June 07, 2024
Patient's somnolent on exam this morning. Not forthcoming when answering questions. Per nursing, patient is sundowning for the past 3 nights, and last night was kicking screaming and spitting and spitting, requiring a dose of Haldol, leading to
his somnolent state on examination this morning. Upon reinterview in the afternoon, patient is asleep in chair, still somnolent, but endorses a cough productive of sputum.
Objective Data
-
Labs:
Laboratory Results
06/07/24
08:13
WBC 4.4 L
Hgb 9.6 L
Hct 29.8 L
Plt Count 120 L
Sodium 140
Potassium 4.0
Chloride 110 H
Carbon Dioxide 18 L
BUN 69 H
Creatinine 1.8 H
Glucose 86
Calcium 8.5
Total Bilirubin 2.4 H
AST 56
ALT 29
Alkaline Phosphatase 339 H
Vital Signs:
Vital Signs
Temp Pulse Resp BP Pulse Ox
98.1 F 62 22 110/68 97
06/07/24 11:09 06/07/24 11:09 06/07/24 11:09 06/07/24 11:09 06/07/24 11:09
I&O
06/06/24 06/07/24 06/08/24
06:59 06:59 06:59
Intake Total 1560 / 1560 580 / 580
Output Total 1575 / 1575 2375 / 2375
Balance -15 / -15 -1795 / -1795
Review of Systems
-
Unable to obtain full review of systems at this time due to: Other (somnolence, s/p haldol administration)
History Source: Patient
Respiratory: Reports Cough
Physical Exam
-
General: No Apparent Distress and Other (Somnolent)
HEENT: Normocephalic and Atraumatic
Respiratory: Clear to Auscultation and Other (no wheezing, rales, rhonchi)
Cardiac: Regular Rhythm and S1/S2
GI: Soft and Nontender
Musculoskeletal: No Clubbing, No Cyanosis, No Edema and Other (venous stasis dermatitis of the lower extremities bilaterally)
Skin: Warm and Dry
Neuro: Sedated
Psych: Calm
Data Reviewed
-
Labs: Labs Reviewed by me
--- NOTE | 2024-06-07 12:59 | CON.MD ---
Consultation - Medical
-
patient seen chart reviewed. discussed with dr vargas and with nursing. the patient was very difficult to rouse. he was calmly lying in bed. i could rouse him momentarily and attempted to ask him simple questions for example 'where are we...? is
this the library ...is it a hotel....but the only response i would get is 'rom[place]' and he would drift back to sleep. nursing reports he told her he was in [place] earlier today. he could not answer as to what holiday is approaching or to what
year we are in although it was printed on the board in front of him. nursing had him oob this am several times as he kept getting out of bed but he kept falling asleep in the chair. he did received haldol prn at !;30 this am for agitation but
nursing did not feel it was helpful. he did answer one question i asked him 'did you sleep last night?' in the negative. patient is here after labs showed deteriorating kidney function noted when bloodwork done by his pcp. he has had a hx of
cognitive decline since he fell and suffered an intracranial bleed in october of 2023. he currently is taking no regular psychotropic medications. patient noted to experience hallucinations. not specific as to whether auditory or visual. he was
reportedly paranoid and delusion last evening as per nursing. spoke with who said he had started with 'senior moments' and then fell and his cognition declined even more 'he's not the same at all'. he had not been 'angry at all ' at
home. says he gets upset in unfamiliar surroundings. he has an appt with dr briseida glass in june for neuro psych testing. says he is a 'genuinely lovable dulce and it is heartbreaking to see him like this' describes patient
thought he saw people stealing things in the hospital.
past med hx patient has a number of medical morbidities. currently cr is 1.8 b12 normal. macrocytic anemia bilirubin 2.4 and 'yellow' coloring noted by nsg in chart. bun 69 ecg abn w nl qtc bp 134/77 patient w hx pacermaker paf htn pvd
ckd LE edema chf hx intracranial bleed see above head ct without acute changes lower extremity US is without acute obstructions chest abd Cat with a number of findings including ascites l pleural effusions renal cysts cardiomegaly. cxr w
effusion vs pneumonia alk phos 338
fh mother had alzheimer's
past psych hx reports no hx of psych in the past
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 patient has children two biological
and two stepchildren. he and have 16 grandkids.
mse lethargic see above answered very few questions see above appears confused
dx likely tme superimposed upon preexisting cognitive decline (?dementia)
recommendations would suggest prn of risperdal m tabs o.25 q 6h at this point patient is quite lethargic so would not do a scheduled order. psych will follow. i did discuss with patient 's the black box warning re dementia and atypicals.
okay w trial of risperdal prn. would check tsh and folate levels.
--- NOTE | 2024-06-07 13:25 | W.PN.CARDCBS ---
Addendum entered and electronically signed by Stanislaw Diaz MD 06/07/24 14:20:
I saw and examined the patient.
The Upholstery Bundler's note was reviewed and I agree with the note.
Comment:
GEN: No distress, awake, Ox3
HEENT: supple, anicteric, mmm
LUNGS: scatt rhonchi
CV: Reg, S1/S2, 1/6 syst LSB, no murmur
ABD: soft, BS+, NT/ND
EXT: No edema
NEURO: Gross non-focal
SKIN: No rash
plan:
Weight is overall improved and creatinine down to 1.8. Continue IV Lasix 40 twice daily for another 24 to 48 hours
Continue Toprol. Abnormal troponin is likely nonischemic myocardial injury.
Plan is to proceed with conservative therapy for him..
Original Note:
Today's Communication / Plan
-
continue IV lasix
follow Cr
Impression / Plan
-
.
PCP: Dr. Estrada
Concrete Placement Equipment Operator: Dr. Diaz
Impression:
Presented with weight gain, SOB
Acute on chronic HFpEF
EF 45%
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
Elevated troponin, suspected nonischemic myocardial injury
Mechanical fall last week
Paroxysmal atrial fibrillation
Not on OAC due to h/o intracranial bleed
[facility] PPM 10/2023
Hypertension
Hyperlipidemia
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
ECHO 09/23/2023: EF 59%, EF 50% by visual estimate with borderline global hypokinesis, moderate concentric LVH, 'speckled appearance' of LV on echo, enlarged RV, mildly dilated RA, mild MR, aortic sclerosis, mild AR, moderate TR, PAP 25 to 30 mmHg
Echo 06/02/2024: EF 45%, moderate concentric LVH, inferoseptal, basal anteroseptal hypokinesis conduction delay versus global hypokinesis; speckling appearance; enlarged RV with normal systolic function. Mild MR, mild AI, moderate to severe TR
Plan:
-Continue diuresis with IV Lasix 40 mg twice daily. Weight trending down overnight if accurate. Creatinine stable at 1.8. Dry weight estimated at 178 pounds. was not on diuretic prior to admission
-He feels most of his fluid is in his belly. Noted by imaging to have evidence of ascites, unclear if enough to complete paracentesis. also with R pleural effusion by abd US.
-EF 45%. toprol 12.5mg daily added this admission
-He is not on aspirin or anticoagulation given history of intracranial bleed.
-Concern by echo for possible amyloid with speckled appearance of LV. Given advanced age, would not move forward with further workup
-trop peaked at 0.137 and trending down. no CP. suspected nonischemic myocardial injury. continue statin. BB added this admit.
-Discussed with nursing
HPI: Chris is an 89-year-old male with past medical history of paroxysmal atrial fibrillation not on anticoagulation due to history of intracranial bleed, chronic HFpEF, permanent pacemaker, hypertension, hyperlipidemia, and CKD. Presented to ER
for evaluation of abnormal lab work as outpatient. reported that he has had increased edema, weight gain, and shortness of breath as well as decreased urine output over the past few weeks. As outpatient, Lasix dose was recently reduced from 40
mg to 20 mg. In ER, found to have ANDREA with creatinine 1.9. proBNP 3500. Left lower lobe opacity noted on chest x-ray, consistent with pneumonia. He was given a dose of IV antibiotics in the ER and was admitted for further workup and evaluation.
Cardiology consulted given concern for acute heart failure.
Progress Note - Concrete Placement Equipment Operator
Subjective
Date of Service: June 07, 2024
Lethargic today. Denies shortness of breath.
Objective
Labs:
06/07/24 08:13
06/07/24 08:13
Labs
Hgb 9.6 g/dL (13.0-18.0) L 06/07/24 08:13
Hct 29.8 % (39.0-52.0) L 06/07/24 08:13
Plt Count 120 10^3/uL (130-400) L 06/07/24 08:13
Sodium 140 mmol/L (135-145) 06/07/24 08:13
Potassium 4.0 mmol/L (3.5-5.1) 06/07/24 08:13
BUN 69 mg/dl (9-20) H 06/07/24 08:13
Creatinine 1.8 mg/dL (0.7-1.3) H 06/07/24 08:13
Glucose 86 mg/dl (70-99) 06/07/24 08:13
Troponins
06/06/24
07:40
Troponin I 0.084 H*
Vital Signs and I&O:
Vital Signs
Temp Pulse Resp BP Pulse Ox
98.1 F 62 22 110/68 97
06/07/24 11:09 06/07/24 11:09 06/07/24 11:09 06/07/24 11:09 06/07/24 11:09
Vital Signs
Temp Pulse Resp BP Pulse Ox
98.1 F 62 22 110/68 97
06/07/24 11:09 06/07/24 11:09 06/07/24 11:09 06/07/24 11:09 06/07/24 11:09
Intake & Output
06/05/24 06/06/24 06/07/24 06/08/24
07:59 07:59 07:59 07:59
Intake Total 660 / 660 1560 / 1560 580 / 580
Output Total 1925 / 1925 1575 / 1575 2375 / 2375
Balance -1265 / -1265 -15 / -15 -1795 / -1795
Physical Exam
Physical Exam
GEN: No distress, awake but lethargic, oriented to self, place
HEENT: supple, anicteric, mmm, eomi
LUNGS: decreased RLB, no wheezes
CV: Reg, S1/S2, no murmur
ABD: soft, BS+, NT, some abd distention
EXT: No cyanosis, clubbing. trace edema of B/L LE
NEURO: Gross non-focal
SKIN: Warm, pink, dry. No rash
--- NOTE | 2024-06-07 13:27 | CM ---
Patient seen at bedside with physicians, patient not present. Patient continues to tell psychiatrist- today note and therapy- yesterday note that she feels that she can take care of patient. Therapy is recommending placement for short term
care. Patient family had mentioned [facility] in the past, referral sent pending patient family choice. CM will reach out to patient son. CM will continue to follow for discharge planning needs.
Plan; home with /VN vs SNF; therapy recommending SNF.
[2024-06-07 14:59] LABS: COVID-19 Antigen Positive (Negative)
[2024-06-07 15:42] VITALS: BP 96/65
[2024-06-07] MEDS: LASIX IV (16:53)
[2024-06-07] MEDS: ROBITUSSIN DM 5 ML PO (18:18)
[2024-06-07 19:29] VITALS: BP 118/62
[2024-06-07] MEDS: SYMBICORT 80/4.5 MCG INHALER 2 PUFF INH (20:05)
[2024-06-07] MEDS: PAXLOVID 150-100 MG DOSE PACK 1 DOSE PO (20:29)
[2024-06-07] MEDS: ZYRTEC 10 MG PO (20:29)
[2024-06-07 23:01] VITALS: BP 109/63
[2024-06-08] VITALS (8 sets, daily range): BP systolic 103–125; BP diastolic 60–69; PULSE 60; O2SAT 96; BMI 26.0
[2024-06-08] MEDS: SYMBICORT 80/4.5 MCG INHALER 2 PUFF INH ×2 (07:29→19:55)
[2024-06-08 08:21] LABS: Hemoglobin 9.5 g/dL (13.0-18.0); Mean Corp Hgb Conc. 33.9 g/dL (33.0-37.0); Mean Corpuscular Hgb 34.7 pg (27.0-31.0); Mean Corpuscular Volume 102.2 fL (80.0-94.0); Mean Platelet Volume 11.7 fL (7.4-10.4); Platelet Count 129 10^3/uL (130-400); Red Blood Cell Count 2.74 10^6/uL (4.70-6.10); Red Cell Dist. Width 15.6 % (11.5-14.5); White Blood Cell Count 4.3 10^3/uL (4.8-10.8)
[2024-06-08 08:47] LABS: ALT (SGPT) 28 U/L (0-50); AST (SGOT) 52 U/L (17-59); Albumin 3.1 g/dl (3.5-5.0); Alkaline Phosphatase 339 U/L (38-126); Blood Urea Nitrogen 71 mg/dl (9-20); Calcium 8.5 mg/dl (8.4-10.2); Carbon Dioxide 21 mmol/L (22-30); Chloride 110 mmol/L (98-107); Estimated Creatinine Clearance 32 ml/min; Glucose 85 mg/dl (70-99); Potassium 4.1 mmol/L (3.5-5.1); Sodium 138 mmol/L (135-145); eGFR 35.98
[2024-06-08 09:14] LABS: TSH Reflex To Free T4 1.69 uIU/ml (0.47-4.68)
[2024-06-08] MEDS: LASIX 40 MG IV ×2 (09:30→17:44)
[2024-06-08] MEDS: PAXLOVID 150-100 MG DOSE PACK 1 DOSE PO ×2 (09:30→20:48)
[2024-06-08] MEDS: TOPROL XL 12.5 MG PO (09:31)
[2024-06-08] MEDS: SENOKOT-S 1 TABLET PO (09:31)
[2024-06-08 11:42] LABS: Folate > 20.0 ng/ml (2.76-20)
--- NOTE | 2024-06-08 12:09 | W.PN.HOSP.TC ---
Addendum entered and electronically signed by Radha Matthew MD 06/08/24 14:57:
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
Addendum entered and electronically signed by Radha Matthew MD 06/08/24 13:42:
I saw and evaluated the patient independently. I reviewed the resident�s note and agree with findings and plan as documented by Dr. Campbell.
GENERAL: well developed, well nourished, male in no apparent distress--very sleepy, sitting in the chair
HEENT: NC/AT
HEART: regular rate and rhythm, +S1, +S2
LUNGS : clear to auscultation bilaterally
ABDOM: soft, nontender, nondistended, + bowel sounds
EXT: no cyanosis, clubbing, or edema
NEUROLOGIC: grossly intact
Covid positive--day 0 = 06/07/24--started Paxlovid (holding statin while on)--not hypoxic, steroids not started
ANDREA on CKD3--likely due to volume overload and need for diuresis--apprec renal--cont diuresis--apprec cards--hold ARB--follow creat
acute on chronic exacerbation of HFpEF--EF 50%--Echo NOW shows mildly reduced LV function now 45%. IVC severely dilated--Speckled appearance of LV suggestive of amyloidosis--A/P CT also shows mod right and small left pleural effusion with
cardiomegaly-- not hypoxemic--cont lasix--follow creat
nighttime agitation/Hallucinations/Sundowning--s/p one dose of haldol (pt didn't sleep at night)--apprec psych--trial of Risperdal
Paroxysmal A-fib-- Patient not currently on AC due to hx of ICH earlier this year---apprec Cardiology
nonischemic myocardial injury troponin elevation -- trend but likely due to renal dysfunction--apprec renal/cards
DVT proph
code status --Full code
Original Note:
Today's Communication/Plan
-
.
Assessment / Plan
Assessment / Plan
1. History of CHF with EF 50%
Echo shows mildly reduced LV function now 45%. IVC severely dilated.
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
A/P CT also shows mod right and small left pleural effusion with cardiomegaly.
Started on IV Lasix. Currently not hypoxic.
Appreciate cards; continue IV Lasix in the setting of improving Cr.
- Lasix increased to 40mg IV BID since weight still not optimal
- Monitor I/O, weights
- Weight increased 2 lbs since yesterday. US Abdomen to assess for ascites today.
- Creatinine continues to improve, 1.8 today.
2. Paroxysmal A-fib
- Patient not currently on AC 2/2 hx of ICH earlier this year.
- Cardiology will interogate PPM
3. Elevated troponin (resolved)
- Patient asymptomatic.
- Possible consequence of renal dysfunction or nonischemic myocardial injury.
- Last Troponin 0.084, downtrending.
4. ANDREA on CKD3
- Appreciate nephrology
- Hold ARB, continue diuresis
- CT shows no obstructive uropathy -
- Recommended PV bladder scan; low thershold for FC if PVR > 400
- In agreement with increased Lasix dose
- Creatinine continues to improve.
- Per nephro, consider bicarbonate if metabolic acidosis persists
5. Hallucinations/Sundowning
- Per nursing no agitation last night. Patient seen by psych, appreciate recs. As needed risperidone 0.25 mg.
Full code
Anticipated Discharge: 24 - 48 hours
Subjective/Interval History
-
Date of Service: June 08, 2024
Patient seen and examined resting comfortably in bed. Patient appears much better this morning, is more oriented, and less somnolent. Patient denies any acute complaints this morning. This patient had a positive COVID test yesterday, and thus the
patient was tested for COVID which resulted positive. Patient notes mild cough, though not on similar to what he came in with. Patient denies trouble breathing or chest pain. Per nurse, patient's weight is up 2 pounds.
Objective Data
-
Labs:
Laboratory Results
06/08/24
07:38
WBC 4.3 L
Hgb 9.5 L
Hct 28.0 L
Plt Count 129 L
Sodium 138
Potassium 4.1
Chloride 110 H
Carbon Dioxide 21 L
BUN 71 H
Creatinine 1.8 H
Glucose 85
Calcium 8.5
Total Bilirubin 2.0 H
AST 52
ALT 28
Alkaline Phosphatase 339 H
Vital Signs:
Vital Signs
Temp Pulse Resp BP Pulse Ox
97.8 F 61 18 108/69 96
06/08/24 11:28 06/08/24 11:28 06/08/24 11:28 06/08/24 11:28 06/08/24 07:51
I&O
06/07/24 06/08/24 06/09/24
06:59 06:59 06:59
Intake Total 580 / 580 1440 / 1440
Output Total 2375 / 2375 925 / 925
Balance -1795 / -1795 515 / 515
Review of Systems
-
History Source: Patient
Respiratory: Reports Cough
Cardiac: Reports No Symptoms
Abdomen/GI: Reports No Symptoms
Physical Exam
-
General: Comfortable and Other (mildly somnolent, though much improved from yesterday)
HEENT: Normocephalic and Atraumatic
Respiratory: Clear to Auscultation
Cardiac: Regular Rhythm and S1/S2
GI: Soft, Nontender and Other (mild distension)
Musculoskeletal: Other (Trace edema; venous stasis dermatitis. )
Skin: Warm
Neuro: Awake and Alert
Psych: Calm
--- NOTE | 2024-06-08 12:16 | W.PN.NEPH.PH ---
Today's Communication / Plan
-
observe on current lasix dose
Assessment/Plan
-
Impression
Hypoxic respiratory distress
Volume overload/CHF EF 45% speckled appearance of LV myocardium moderate to severe tricuspid regurg
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
Paroxysmal atrial fibrillation
Pacemaker
Peripheral vascular disease
Metabolic acidosis
History of hypertension
Flank pain
History of prostate cancer with radio active seeding
Now with COVID
Plan:
ANDREA/CKD/Volume Overload=
-Maintain 40 mg IV Lasix BID
-Creatinine 1.8 from 2.1, uop ~925
-Holding ARB, bp remains low
-CT scan of abdomen and pelvis reviewed: No evidence of obstructive uropathy or stone
-UA essentially bland consistent with likely underlying cardiorenal syndrome
discussion with family is weight was as low as 170 pounds and up to as high as 195 pounds is currently 191
Continue current diuretics
creatinine remains stable on diuretics
Weights drowsing and now grossly nonoliguric with escalated IV Lasix administration
patient really needs RHC to held define actual volume status
-
-
Date of Service: June 08, 2024
CC / HPI / ROS
-
Chief Complaint:
ANDREA
History of Present Illness:
Creatinine 2.1>1.8
Hemodynamically stable
now with COVID
Review of Systems:
Nonoliguric
No fevers
weights unchanged
Labs
-
Labs:
WBC 4.3 10^3/uL (4.8-10.8) L 06/08/24 07:38
RBC 2.74 10^6/uL (4.70-6.10) L 06/08/24 07:38
Hgb 9.5 g/dL (13.0-18.0) L 06/08/24 07:38
Hct 28.0 % (39.0-52.0) L 06/08/24 07:38
Plt Count 129 10^3/uL (130-400) L 06/08/24 07:38
Sodium 138 mmol/L (135-145) 06/08/24 07:38
Potassium 4.1 mmol/L (3.5-5.1) 06/08/24 07:38
Chloride 110 mmol/L (98-107) H 06/08/24 07:38
Carbon Dioxide 21 mmol/L (22-30) L 06/08/24 07:38
BUN 71 mg/dl (9-20) H 06/08/24 07:38
Creatinine 1.8 mg/dL (0.7-1.3) H 06/08/24 07:38
eGFR 35.98 06/08/24 07:38
Glucose 85 mg/dl (70-99) 06/08/24 07:38
Calcium 8.5 mg/dl (8.4-10.2) 06/08/24 07:38
Yob-G-Xzmvughhjkq Pept 3500 pg/ml 06/02/24 11:25
Albumin 3.1 g/dl (3.5-5.0) L 06/08/24 07:38
Physical Exam
-
Vital Signs:
Vital Signs
Temp Pulse Resp BP Pulse Ox
97.8 F 61 18 108/69 95
06/08/24 11:28 06/08/24 11:28 06/08/24 11:28 06/08/24 11:28 06/08/24 08:00
Cardiovascular:: Regular rate and rhythm
Respiratory:: Bilateral: Coarse
Lung Excursion:: Normal
Abdomen:: Nontender and Soft
Bowel Sounds:: Normal
Extremity Edema:: +1: Bilateral:
Rene Catheter: No
--- NOTE | 2024-06-08 13:28 | W.PN.CARDCBS ---
Addendum entered and electronically signed by Stanislaw Diaz MD 06/08/24 18:56:
I saw and examined the patient.
The Brim Presser's note was reviewed and I agree with the note.
Comment:
GEN: No distress, awake, Ox3
HEENT: supple, anicteric, mmm
LUNGS: scatt rhonchi
CV: Reg, S1/S2, 1/6 syst LSB, no gallop
ABD: soft, BS+, NT/ND
EXT: No edema
NEURO: Gross non-focal
SKIN: No rash
Plan:
Weight is up slightly but would continue with IV Lasix for now. Likely switch to oral Lasix in a.m.
Continue low-dose Toprol. Watch for hypotension
Continue supportive care of COVID.
Creatinine overall stable at 1.8
Original Note:
Today's Communication / Plan
-
continue IV lasix
follow Cr
supportive care of covid
Impression / Plan
-
.
PCP: Dr. Estrada
Diesel Stationary Engineer: Dr. Diaz
Impression:
Presented with weight gain, SOB
Acute on chronic HFpEF
EF 45%
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
Elevated troponin, suspected nonischemic myocardial injury
Mechanical fall last week
Paroxysmal atrial fibrillation
Not on OAC due to h/o intracranial bleed
[facility] PPM 10/2023
Hypertension
Hyperlipidemia
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
ECHO 09/23/2023: EF 59%, EF 50% by visual estimate with borderline global hypokinesis, moderate concentric LVH, 'speckled appearance' of LV on echo, enlarged RV, mildly dilated RA, mild MR, aortic sclerosis, mild AR, moderate TR, PAP 25 to 30 mmHg
Echo 06/02/2024: EF 45%, moderate concentric LVH, inferoseptal, basal anteroseptal hypokinesis conduction delay versus global hypokinesis; speckling appearance; enlarged RV with normal systolic function. Mild MR, mild AI, moderate to severe TR
Plan:
-now covid +. continue supportive care
-with agitation overnight requiring IV haldol.
-Suspect weight this morning is inaccurate. Continue diuresis with IV Lasix 40 mg twice daily. Creatinine remained stable at 1.8. Dry weight reportedly 178 pounds. Was not on diuretic prior to admission
-EF 45%. toprol 12.5mg daily added this admission
-He is not on aspirin or anticoagulation given history of intracranial bleed.
-Concern by echo for possible amyloid with speckled appearance of LV. Given advanced age, would not move forward with further workup
-trop peaked at 0.137 and trending down. no CP. suspected nonischemic myocardial injury. continue statin. BB added this admit.
-Discussed with nursing
HPI: Chris is an 89-year-old male with past medical history of paroxysmal atrial fibrillation not on anticoagulation due to history of intracranial bleed, chronic HFpEF, permanent pacemaker, hypertension, hyperlipidemia, and CKD. Presented to ER
for evaluation of abnormal lab work as outpatient. reported that he has had increased edema, weight gain, and shortness of breath as well as decreased urine output over the past few weeks. As outpatient, Lasix dose was recently reduced from 40
mg to 20 mg. In ER, found to have ANDREA with creatinine 1.9. proBNP 3500. Left lower lobe opacity noted on chest x-ray, consistent with pneumonia. He was given a dose of IV antibiotics in the ER and was admitted for further workup and evaluation.
Cardiology consulted given concern for acute heart failure.
Progress Note - Diesel Stationary Engineer
Subjective
Date of Service: June 08, 2024
with agitation overnight
Objective
Labs:
06/08/24 07:38
06/08/24 07:38
Labs
Hgb 9.5 g/dL (13.0-18.0) L 06/08/24 07:38
Hct 28.0 % (39.0-52.0) L 06/08/24 07:38
Plt Count 129 10^3/uL (130-400) L 06/08/24 07:38
Sodium 138 mmol/L (135-145) 06/08/24 07:38
Potassium 4.1 mmol/L (3.5-5.1) 06/08/24 07:38
BUN 71 mg/dl (9-20) H 06/08/24 07:38
Creatinine 1.8 mg/dL (0.7-1.3) H 06/08/24 07:38
Glucose 85 mg/dl (70-99) 06/08/24 07:38
Troponins
06/06/24
07:40
Troponin I 0.084 H*
Vital Signs and I&O:
Vital Signs
Temp Pulse Resp BP Pulse Ox
97.8 F 61 18 108/69 95
06/08/24 11:28 06/08/24 11:28 06/08/24 11:28 06/08/24 11:28 06/08/24 08:00
Vital Signs
Temp Pulse Resp BP Pulse Ox
97.8 F 61 18 108/69 95
06/08/24 11:28 06/08/24 11:28 06/08/24 11:28 06/08/24 11:28 06/08/24 08:00
Intake & Output
06/06/24 06/07/24 06/08/24 06/09/24
07:59 07:59 07:59 07:59
Intake Total 1560 / 1560 580 / 580 1440 / 1440
Output Total 1575 / 1575 2375 / 2375 925 / 925
Balance -15 / - -1794 / -1794 515 / 515
--- NOTE | 2024-06-08 14:32 | PN.CDI ---
CDI
- -
CDI:
Physician Documentation Request
Admit Date: 06/02/24 15:23
Dear Doctor Shannan,
Patient admitted for acute heart failure.
Laboratory Tests
06/06/24 06/07/24 06/08/24
07:40 08:13 07:38
WBC 4.7 L 4.4 L 4.3 L
RBC 2.80 L 2.78 L 2.74 L
Hgb 9.8 L 9.6 L 9.5 L
Plt Count 120 L 120 L 129 L
Based on the above, could you clarify in the progress notes, the appropriate diagnosis, if significant, that supports the above abnormalities and additional evaluation, monitoring and/or treatment rendered:
Pancytopenia
Abnormal lab value insignificant
Other
Use of terms such as suspected, likely, concern for, or probable (associated with a specific diagnosis that is being evaluated, monitored, or treated as if it exists) are acceptable and can be coded in the inpatient setting, when documented at the
time of discharge.
Thank you,
Ophelia Hendrix RN, BSN
CDI Specialist
Available via [facility] text
Please use your independent medical judgment in providing your response.
--- NOTE | 2024-06-08 15:07 | W.PN.UPDATE ---
Update Note
Progress Note Update
patient seen chart reviewed. spoke with nursing. mr jalloh was sitting up in bed quite cheerful having eaten every thing on his tray. he was able to tell mle what he had had for lunch and that vanilla is his favorite ice cream flavor. he was fully
oriented. he knew alessandro was coming . his demeanor today was very pleasant and alert in contrast to the lethargy noted yesterday. he has received no prns in the past 24 hours. would continue as currently. the lethargy noted yesterday may be
secondary to haldol administered during the night before last. he now has a prn for risperdal which as stated he has not needed. will leave it in place for now in the event there is another period of agitation. psych will follow loosely.
--- NOTE | 2024-06-08 17:00 | PTCARENOTE ---
Pt urinating small frequent amounts, voided 50-100 scanned for 320-391. made aware pt does have ascites hard to distinguish if Bladder scan is accurate. ABD u/s ordered for am. Plan of care continues
[2024-06-08] MEDS: ZYRTEC 10 MG PO (20:51)
[2024-06-09] VITALS (7 sets, daily range): BP systolic 104–126; BP diastolic 58–73; PULSE 64; O2SAT 96; BMI 26.0
--- NOTE | 2024-06-09 07:26 | W.PN.HOSP.TC ---
Today's Communication/Plan
-
.
Assessment / Plan
Assessment / Plan
1. History of CHF with EF 50%
Echo shows mildly reduced LV function now 45%. IVC severely dilated.
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
A/P CT also shows mod right and small left pleural effusion with cardiomegaly.
Started on IV Lasix. Currently not hypoxic.
Appreciate cards; continue Lasix in the setting of improving Cr.
Switch to oral Lasix today
Weight is stabilized. Ultrasound shows small volume ascites, not adequate for paracentesis.
- Creatinine stable.
2. Paroxysmal A-fib
- Patient not currently on AC 2/2 hx of ICH earlier this year.
- Cardiology will interogate PPM
3. Elevated troponin (resolved)
- Patient asymptomatic.
- Possible consequence of renal dysfunction or nonischemic myocardial injury.
- Last Troponin 0.084, downtrending.
4. ANDREA on CKD3
- Appreciate nephrology
- Hold ARB, continue diuresis
- CT shows no obstructive uropathy -
- Recommended PV bladder scan; low thershold for FC if PVR > 400
- In agreement with increased Lasix dose
- Creatinine continues to improve.
- Per nephro, consider bicarbonate if metabolic acidosis persists
5. Hallucinations/Sundowning
- Per nursing no agitation last night. Patient seen by psych, appreciate recs. As needed risperidone 0.25 mg.
Patient is medically cleared for discharge; awaiting bed at rehab.
Anticipated Discharge: Today
Subjective/Interval History
-
Date of Service: June 09, 2024
Patient seen and examined while resting comfortably in bed. Patient denies any acute complaints today. Specifically the patient denies shortness of breath, chest pain, cough, sore throat, fevers. Patient remains calm and has not had any episodes
of agitation since seen by psych. Patient is conversant and telling jokes.
Objective Data
-
Vital Signs:
Vital Signs
Temp Pulse Resp BP Pulse Ox
97.7 F 65 24 126/73 97
06/09/24 03:35 06/09/24 03:35 06/09/24 03:35 06/09/24 03:35 06/09/24 03:35
I&O
06/08/24 06/09/24 06/10/24
06:59 06:59 06:59
Intake Total 1440 / 1440 480 / 480 480 / 480
Output Total 925 / 925 500 / 500 690 / 690
Balance 515 / 515 -20 / -20 -210 / -210
Review of Systems
-
History Source: Patient
Constitutional: Reports No Symptoms
EENT: Reports No Symptoms Reported
Respiratory: Reports No Symptoms
Abdomen/GI: Reports No Symptoms
Musculoskeletal: Reports No Symptoms
Physical Exam
-
General: No Apparent Distress and Comfortable
HEENT: Normocephalic and Atraumatic
Respiratory: Clear to Auscultation
Cardiac: Regular Rhythm
GI: Soft and Nontender
Musculoskeletal: No Edema
Skin: Warm and Dry
Psych: Calm
Data Reviewed
-
Ultrasound: Report Reviewed by me
Labs: Labs Reviewed by me
[2024-06-09] MEDS: SYMBICORT 80/4.5 MCG INHALER 2 PUFF INH ×2 (07:38→21:01)
[2024-06-09] MEDS: TOPROL XL 12.5 MG PO (10:01)
[2024-06-09] MEDS: PAXLOVID 150-100 MG DOSE PACK 1 DOSE PO ×2 (10:01→20:45)
[2024-06-09 11:06] LABS: Hemoglobin 10.3 g/dL (13.0-18.0); Mean Corp Hgb Conc. 32.2 g/dL (33.0-37.0); Mean Corpuscular Hgb 34.4 pg (27.0-31.0); Mean Platelet Volume 11.5 fL (7.4-10.4); Platelet Count 138 10^3/uL (130-400); Red Blood Cell Count 2.99 10^6/uL (4.70-6.10); Red Cell Dist. Width 15.7 % (11.5-14.5); White Blood Cell Count 4.2 10^3/uL (4.8-10.8)
[2024-06-09 11:26] LABS: ALT (SGPT) 28 U/L (0-50); AST (SGOT) 55 U/L (17-59); Albumin 3.4 g/dl (3.5-5.0); Alkaline Phosphatase 362 U/L (38-126); Blood Urea Nitrogen 71 mg/dl (9-20); Calcium 8.7 mg/dl (8.4-10.2); Carbon Dioxide 20 mmol/L (22-30); Chloride 105 mmol/L (98-107); Estimated Creatinine Clearance 30 ml/min; Glucose 80 mg/dl (70-99); Sodium 137 mmol/L (135-145); Total Bilirubin 2.3 mg/dl (0.2-1.3); Total Protein 6.6 g/dl (6.3-8.2); eGFR 33.72
[2024-06-09] MEDS: LASIX 40 MG IV ×2 (11:33→16:35)
--- NOTE | 2024-06-09 13:26 | W.PN.NEPH.PH ---
Today's Communication / Plan
-
Continue IV diuretic
Assessment/Plan
-
Impression
Hypoxic respiratory distress
Volume overload/CHF EF 45% speckled appearance of LV myocardium moderate to severe tricuspid regurg
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
Paroxysmal atrial fibrillation
Pacemaker
Peripheral vascular disease
Metabolic acidosis
History of hypertension
Flank pain
History of prostate cancer with radio active seeding
Now with COVID
Plan:
ANDREA/CKD/Volume Overload=
-Maintain 40 mg IV Lasix BID
-Creatinine stable 1.8-1.9 from 2.1, uop ~nonoliguric
-Holding ARB, bp remains low
-CT scan of abdomen and pelvis reviewed: No evidence of obstructive uropathy or stone
-UA essentially bland consistent with likely underlying cardiorenal syndrome
discussion with family is weight was as low as 170 pounds and up to as high as 195 pounds is currently 191 without much change
Continue current diuretics
creatinine remains stable on diuretics
patient needs RHC to held define actual volume status
-
-
Date of Service: June 09, 2024
CC / HPI / ROS
-
Chief Complaint:
ANDREA
History of Present Illness:
Creatinine 2.1>1.8
Hemodynamically stable
now with COVID
Review of Systems:
Nonoliguric
No fevers
weights unchanged
Labs
-
Labs:
WBC 4.2 10^3/uL (4.8-10.8) L 06/09/24 10:10
RBC 2.99 10^6/uL (4.70-6.10) L 06/09/24 10:10
Hgb 10.3 g/dL (13.0-18.0) L 06/09/24 10:10
Hct 32.0 % (39.0-52.0) L 06/09/24 10:10
Plt Count 138 10^3/uL (130-400) 06/09/24 10:10
Sodium 137 mmol/L (135-145) 06/09/24 10:10
Potassium 4.0 mmol/L (3.5-5.1) 06/09/24 10:10
Chloride 105 mmol/L (98-107) 06/09/24 10:10
Carbon Dioxide 20 mmol/L (22-30) L 06/09/24 10:10
BUN 71 mg/dl (9-20) H 06/09/24 10:10
Creatinine 1.9 mg/dL (0.7-1.3) H 06/09/24 10:10
eGFR 33.72 06/09/24 10:10
Glucose 80 mg/dl (70-99) 06/09/24 10:10
Calcium 8.7 mg/dl (8.4-10.2) 06/09/24 10:10
Ome-Q-Wcexnykrbdt Pept 3500 pg/ml 06/02/24 11:25
Albumin 3.4 g/dl (3.5-5.0) L 06/09/24 10:10
Physical Exam
-
Vital Signs:
Vital Signs
Temp Pulse Resp BP Pulse Ox
97.3 F 64 20 117/64 98
06/09/24 11:52 06/09/24 11:52 06/09/24 11:52 06/09/24 11:52 06/09/24 11:52
Cardiovascular:: Regular rate and rhythm
Respiratory:: Bilateral: Coarse
Lung Excursion:: Normal
Abdomen:: Nontender and Soft
Bowel Sounds:: Normal
Extremity Edema:: +1: Bilateral:
Rene Catheter: No
--- NOTE | 2024-06-09 16:00 | CM ---
Addendum entered by Tamara Payne 06/09/24 16:48:
per reggie watkins no covid rooms available at this time. Patient to review options and update CM.
Original Note:
Patient on covid restrictions. CM called to patient to review discharge planning options and VM left for patient . Son does not have phone number on chart. CM also called to nursing to request any phone numbers for patient son. Patient son
phone number not with nursing. CM will continue to follow for discharge planning needs.
Plan; SNF;
--- NOTE | 2024-06-09 16:23 | W.PN.CARDCBS ---
Addendum entered and electronically signed by Stanislaw Diaz MD 06/09/24 17:25:
I saw and examined the patient.
The Rail Car Repairer's note was reviewed and I agree with the note.
Comment:
GEN: No distress, awake, Ox3
HEENT: supple, anicteric, mmm
LUNGS: CTA, no wheezes/rales
CV: Reg, S1/S2, / syst LSB, S3+
ABD: soft, BS+, NT/ND
EXT: +1 edema
NEURO: Gross non-focal
SKIN: No rash
Plan:
Cont IV lasix. weight accurate?
repeat proBNP
Clinically he looks better and in chair
Cont Toprol. Would hold off on right heart cath for now. Will add metolazone in a.m. I suspect he remains volume overloaded.
If kidney function worsens would consider right heart catheterization on Wednesday once he is out of isolation.
Original Note:
Today's Communication / Plan
-
Continue IV diuretics. Repeat proBNP
Impression / Plan
-
.
PCP: Dr. Estrada
Writer Editor: Dr. Diaz
Impression:
Presented with weight gain, SOB
Acute on chronic HFpEF
EF 45%
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
Elevated troponin, suspected nonischemic myocardial injury
Mechanical fall last week
Paroxysmal atrial fibrillation
Not on OAC due to h/o intracranial bleed
[facility] PPM 10/2023
Hypertension
Hyperlipidemia
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
ECHO 09/23/2023: EF 59%, EF 50% by visual estimate with borderline global hypokinesis, moderate concentric LVH, 'speckled appearance' of LV on echo, enlarged RV, mildly dilated RA, mild MR, aortic sclerosis, mild AR, moderate TR, PAP 25 to 30 mmHg
Echo 06/02/2024: EF 45%, moderate concentric LVH, inferoseptal, basal anteroseptal hypokinesis conduction delay versus global hypokinesis; speckling appearance; enlarged RV with normal systolic function. Mild MR, mild AI, moderate to severe TR
Plan:
-Continue supportive care of COVID illness
-Appears to be clinically improving from volume standpoint. Suspect weights inaccurate as were bed scale. Continue diuresis with IV Lasix 40 mg twice daily today. Creatinine stable at 1.9. Check proBNP. Weights still up significantly from
family reported dry weight of 178 pounds. He did not require diuretic prior to admission. If proBNP remain significantly elevated, would consider increasing Lasix or adding metolazone
-EF 45%. toprol 12.5mg daily added this admission
-He is not on aspirin or anticoagulation given history of intracranial bleed.
-Concern by echo for possible amyloid with speckled appearance of LV. Given advanced age, would not move forward with further workup
-trop peaked at 0.137 and trending down. no CP. suspected nonischemic myocardial injury. continue statin. BB added this admit.
HPI: Chris is an 89-year-old male with past medical history of paroxysmal atrial fibrillation not on anticoagulation due to history of intracranial bleed, chronic HFpEF, permanent pacemaker, hypertension, hyperlipidemia, and CKD. Presented to ER
for evaluation of abnormal lab work as outpatient. reported that he has had increased edema, weight gain, and shortness of breath as well as decreased urine output over the past few weeks. As outpatient, Lasix dose was recently reduced from 40
mg to 20 mg. In ER, found to have ANDREA with creatinine 1.9. proBNP 3500. Left lower lobe opacity noted on chest x-ray, consistent with pneumonia. He was given a dose of IV antibiotics in the ER and was admitted for further workup and evaluation.
Cardiology consulted given concern for acute heart failure.
Progress Note - Writer Editor
Subjective
Date of Service: June 09, 2024
No complaints
Objective
Labs:
06/09/24 10:10
06/09/24 10:10
Labs
Hgb 10.3 g/dL (13.0-18.0) L 06/09/24 10:10
Hct 32.0 % (39.0-52.0) L 06/09/24 10:10
Plt Count 138 10^3/uL (130-400) 06/09/24 10:10
Sodium 137 mmol/L (135-145) 06/09/24 10:10
Potassium 4.0 mmol/L (3.5-5.1) 06/09/24 10:10
BUN 71 mg/dl (9-20) H 06/09/24 10:10
Creatinine 1.9 mg/dL (0.7-1.3) H 06/09/24 10:10
Glucose 80 mg/dl (70-99) 06/09/24 10:10
Vital Signs and I&O:
Vital Signs
Temp Pulse Resp BP Pulse Ox
97.3 F 64 20 117/64 98
06/09/24 11:52 06/09/24 11:52 06/09/24 11:52 06/09/24 11:52 06/09/24 11:52
Vital Signs
Temp Pulse Resp BP Pulse Ox
97.3 F 64 20 117/64 98
06/09/24 11:52 06/09/24 11:52 06/09/24 11:52 06/09/24 11:52 06/09/24 11:52
Intake & Output
06/07/24 06/08/24 06/09/24 06/10/24
07:59 07:59 07:59 07:59
Intake Total 580 / 580 1440 / 1440 960 / 960
Output Total 2375 / 2375 925 / 925 1190 / 1190
Balance -1795 / -1795 515 / 515 -230 / -230
[2024-06-09] MEDS: FLUSH (NSS) 1 FLUSH IV (16:36)
[2024-06-09 17:18] LABS: NT-proBNP 5700 pg/ml
--- NOTE | 2024-06-09 18:07 | W.PN.UPDATE ---
Update Note
Progress Note Update
Seen and examined by me independently in collaboration with the forensic medical examiner.
Lab data and imaging data reviewed.
Addendum as below :
Patient denies shortness of breath. Not on oxygen. Improved weight. Chest is clear. Diuretics transition to oral.
From COVID-19 infection no sore throat or fevers. Continue with Paxlovid due to high risk.
Cr at baseline.
Medically stable for discharge to rehab.
[2024-06-09] MEDS: ZYRTEC 10 MG PO (20:46)
[2024-06-10] MEDS: RISPERDAL M-TAB (ORALLY DISINTEGRATING) 0.25 MG PO ×2 (00:26→20:17)
[2024-06-10 03:08] VITALS: BP 130/71
[2024-06-10 06:00] VITALS: BMI 25.5
[2024-06-10 07:30] VITALS: BP 131/77
[2024-06-10] MEDS: SYMBICORT 80/4.5 MCG INHALER 2 PUFF INH ×2 (08:14→18:02)
[2024-06-10] MEDS: TOPROL XL 12.5 MG PO (08:57)
[2024-06-10] MEDS: PAXLOVID 150-100 MG DOSE PACK 1 DOSE PO ×2 (08:58→20:22)
[2024-06-10] MEDS: LASIX 40 MG IV ×2 (08:58→16:35)
--- NOTE | 2024-06-10 10:09 | W.PN.NEPH.PH ---
Today's Communication / Plan
-
Continue current diuretics with possible thiazide diuretic per cardiology. Will defer
Assessment/Plan
-
Impression
Hypoxic respiratory distress
Volume overload/CHF EF 45% speckled appearance of LV myocardium moderate to severe tricuspid regurg
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
Paroxysmal atrial fibrillation
Pacemaker
Peripheral vascular disease
Metabolic acidosis
History of hypertension
Flank pain
History of prostate cancer with radio active seeding
Now with COVID
Plan:
ANDREA/CKD/Volume Overload=
-Maintain 40 mg IV Lasix BID
-Creatinine stable 1.8-1.9 from 2.1, uop ~nonoliguric
-Holding ARB, bp remains low
-CT scan of abdomen and pelvis reviewed: No evidence of obstructive uropathy or stone
-UA essentially bland consistent with likely underlying cardiorenal syndrome
discussion with family is weight was as low as 170 pounds and up to as high as 195 pounds is currently 191 without much change
Continue current diuretics
creatinine remains stable on diuretics
Thiazide suggested by cardiology although clinically he appears euvolemic
patient would need RHC to held define actual volume status
-
-
Date of Service: June 10, 2024
CC / HPI / ROS
-
Chief Complaint:
ANDREA
History of Present Illness:
Creatinine 2.1>1.8
Hemodynamically stable
now with COVID
Review of Systems:
Nonoliguric
No fevers
weights unchanged
Labs
-
Labs:
WBC 4.2 10^3/uL (4.8-10.8) L 06/09/24 10:10
RBC 2.99 10^6/uL (4.70-6.10) L 06/09/24 10:10
Hgb 10.3 g/dL (13.0-18.0) L 06/09/24 10:10
Hct 32.0 % (39.0-52.0) L 06/09/24 10:10
Plt Count 138 10^3/uL (130-400) 06/09/24 10:10
Sodium 137 mmol/L (135-145) 06/09/24 10:10
Potassium 4.0 mmol/L (3.5-5.1) 06/09/24 10:10
Chloride 105 mmol/L (98-107) 06/09/24 10:10
Carbon Dioxide 20 mmol/L (22-30) L 06/09/24 10:10
BUN 71 mg/dl (9-20) H 06/09/24 10:10
Creatinine 1.9 mg/dL (0.7-1.3) H 06/09/24 10:10
eGFR 33.72 06/09/24 10:10
Glucose 80 mg/dl (70-99) 06/09/24 10:10
Calcium 8.7 mg/dl (8.4-10.2) 06/09/24 10:10
Gvu-C-Wbmaocesxnp Pept 5700 pg/ml 06/09/24 10:10
Albumin 3.4 g/dl (3.5-5.0) L 06/09/24 10:10
Physical Exam
-
Vital Signs:
Vital Signs
Temp Pulse Resp BP Pulse Ox
98.3 F 61 16 131/77 97
06/10/24 07:30 06/10/24 08:58 06/10/24 08:23 06/10/24 08:58 06/10/24 08:45
Cardiovascular:: Regular rate and rhythm
Respiratory:: Bilateral: Coarse
Lung Excursion:: Normal
Abdomen:: Nontender and Soft
Bowel Sounds:: Normal
Extremity Edema:: +1: Bilateral:
Rene Catheter: No
[2024-06-10 11:00] VITALS: BP 119/71
--- NOTE | 2024-06-10 13:13 | CM ---
Addendum entered by Julia Bucio RN 06/10/24 14:59:
Received callback from Adrienne; she went and toured [facility] today and didn't like it. Adrienne says that the patient was at [facility] before and did not like that SNF. She prefers to wait until Wednesday to see if [facility] or [facility]
can accept.
Spoke with Jyoti, [facility]; the patient needs to be 10 days out from Covid.
Plan follow up with [facility] on Wednesday re; acceptance.
Original Note:
Patient who is Covid + 06/07. Room air. Receiving IV Lasix, Paxlovid. PT/OT recommend skilled rehab.
SNF referrals reviewed- not accepted by [facility] at this time due to Covid + status. No response from [facility] previously and will not be able to get a response on the weekend.
Spoke with [facility]; they have availability at all 4 of their SNFs and ARE able to accept a patient who is Covid + 18.
Spoke with patient's Adrienne; discussed SNFs in [facility] and provided [facility] ratings. She would like to consider which SNFs she would like and will let CM know. toured [facility] today and liked that facility.
Plan additional SNF referrals once decides.
--- NOTE | 2024-06-10 13:28 | W.PN.HOSP.TC ---
Today's Communication/Plan
-
DC planning
Assessment / Plan
Assessment / Plan
1.Acute on chronic diastolic CHF decompensation with mid range EF
History of CHF with EF 50%
Echo shows mildly reduced LV function now 45%. IVC severely dilated.
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
A/P CT also shows mod right and small left pleural effusion with cardiomegaly.
Started on IV Lasix. Currently not hypoxic.
Appreciate cards; continue Lasix in the setting of improving Cr.
Switch to oral Lasix when ok from cardiology
Weight is stabilized. Ultrasound shows small volume ascites, not adequate for paracentesis.
- Creatinine stable.
2. Paroxysmal A-fib
- Patient not currently on AC 2/2 hx of ICH earlier this year.
3. Elevated troponin (resolved)
- Patient asymptomatic.
- Possible consequence of renal dysfunction or nonischemic myocardial injury.
- Last Troponin 0.084, downtrending.
4. ANDERA on CKD3
- Appreciate nephrology
- Hold ARB, continue diuresis
- CT shows no obstructive uropathy -
- Recommended PV bladder scan; low thershold for FC if PVR > 400
- In agreement with increased Lasix dose
- Creatinine stable.
- Per nephro, consider bicarbonate if metabolic acidosis persists
5. Hallucinations/Sundowning
- Per nursing no agitation last night. Patient seen by psych, appreciate recs. As needed risperidone 0.25 mg.
6. COVID infection acute - in hospital - cw paxlovid course
Patient is medically cleared for discharge; awaiting bed at rehab.
Anticipated Discharge: 24 - 48 hours
Subjective/Interval History
-
Date of Service: June 10, 2024
Feels okay.
Denies any shortness of breath.
No sore throat or cough.
Remains on room air.
No nausea vomiting.
Chest pain.
Objective Data
-
Vital Signs:
Vital Signs
Temp Pulse Resp BP Pulse Ox
97.2 F 61 18 119/71 100
06/10/24 11:00 06/10/24 11:00 06/10/24 11:00 06/10/24 11:00 06/10/24 11:00
I&O
06/09/24 06/10/24 06/11/24
06:59 06:59 06:59
Intake Total 480 / 480 1440 / 1440
Output Total 500 / 500 1590 / 1590
Balance -20 / -20 -150 / -150
Physical Exam
-
Respiratory: Clear to Auscultation
Cardiac: Regular Rhythm and S1/S2
GI: Soft
Neuro: AO x 3
Data Reviewed
-
Labs: Labs Reviewed by me
[2024-06-10 15:00] VITALS: BP 124/67
[2024-06-10] MEDS: ZYRTEC 10 MG PO (20:18)
[2024-06-10 23:48] VITALS: BP 122/74
[2024-06-11 04:10] VITALS: BMI 24.9
[2024-06-11 06:13] LABS: Blood Urea Nitrogen 70 mg/dl (9-20); Calcium 8.8 mg/dl (8.4-10.2); Carbon Dioxide 24 mmol/L (22-30); Chloride 107 mmol/L (98-107); Estimated Creatinine Clearance 29 ml/min; Glucose 90 mg/dl (70-99); Potassium 3.9 mmol/L (3.5-5.1); Sodium 141 mmol/L (135-145); eGFR 31.71
[2024-06-11 07:49] VITALS: BP 127/67
[2024-06-11] MEDS: SYMBICORT 80/4.5 MCG INHALER 2 PUFF INH ×2 (08:28→20:01)
[2024-06-11] MEDS: LASIX 40 MG IV ×2 (09:13→16:56)
[2024-06-11] MEDS: TOPROL XL 12.5 MG PO (09:13)
[2024-06-11] MEDS: PAXLOVID 150-100 MG DOSE PACK 1 DOSE PO ×2 (09:13→20:38)
--- NOTE | 2024-06-11 11:03 | W.PN.HOSP.TC ---
Today's Communication/Plan
-
DC planning
Assessment / Plan
Assessment / Plan
Acute on chronic diastolic CHF decompensation with mid range EF
History of CHF with EF 50%
Echo shows mildly reduced LV function now 45%. IVC severely dilated.
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
A/P CT also shows mod right and small left pleural effusion with cardiomegaly.
Started on IV Lasix. Currently not hypoxic.
Appreciate cards; continue Lasix in the setting of improving Cr.
Switch to oral Lasix when ok from cardiology
Weight improving. Ultrasound shows small volume ascites, not adequate for paracentesis.
- Creatinine slow increase -suspect sec to diuresis.
Paroxysmal A-fib
- Patient not currently on AC 2/2 hx of ICH earlier this year.
Elevated troponin (resolved)
- Patient asymptomatic.
- Possible consequence of renal dysfunction or nonischemic myocardial injury.
- Last Troponin 0.084, downtrending.
ANDREA on CKD3
- Appreciate nephrology
- Hold ARB, continue diuresis
- CT shows no obstructive uropathy -
- Creatinine with increase -suspect sec to diuresis-follow
Hallucinations/Sundowning
- Patient seen by psych, appreciate recs. As needed risperidone 0.25 mg.
COVID infection acute - in hospital - [facility]
Patient is medically cleared for discharge; awaiting bed at rehab.
Anticipated Discharge: Within 24 hours
Subjective/Interval History
-
Date of Service: June 11, 2024
Did not sleep much last night. This morning he was sleepy but now awake. Family at bedside. He finished all his breakfast.
Denies any shortness of breath or chest pain.
Objective Data
-
Labs:
Laboratory Results
06/11/24
04:54
Sodium 141
Potassium 3.9
Chloride 107
Carbon Dioxide 24
BUN 70 H
Creatinine 2.0 H
Glucose 90
Calcium 8.8
Vital Signs:
Vital Signs
Temp Pulse Resp BP Pulse Ox
97.5 F 64 16 127/67 99
06/11/24 07:49 06/11/24 08:35 06/11/24 08:35 06/11/24 07:49 06/11/24 08:35
I&O
06/10/24 06/11/24 06/12/24
06:59 06:59 06:59
Intake Total 1440 / 1440 1080 / 1080
Output Total 1590 / 1590 925 / 925
Balance -150 / -150 155 / 155
Review of Systems
-
Constitutional: Denies Fever
EENT: Denies Sore Throat
Respiratory: Denies Trouble Breathing
Cardiac: Denies Chest Pain
Neuro: Denies Dizzy
Physical Exam
-
General: No Apparent Distress
HEENT: Moist Mucous Membranes
Respiratory: Clear to Auscultation
Cardiac: Regular Rhythm (A V paced) and S1/S2
GI: Soft and Nontender
Neuro: Awake, Alert and Oriented
Data Reviewed
-
Labs: Labs Reviewed by me
--- NOTE | 2024-06-11 11:52 | W.PN.CARDCBS ---
Today's Communication / Plan
-
Creat 2.0. Switch to Lasix 40mg po bid
Improved
Cont Toprol, Atorvastatin
Hopeful for D/C in AM
Impression / Plan
-
.
PCP: Dr. Estrada
Voice Intercept Technician: Dr. Diaz
Impression:
Presented with weight gain, SOB
Acute on chronic HFpEF
EF 45%
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
Elevated troponin, suspected nonischemic myocardial injury
Mechanical fall last week
Paroxysmal atrial fibrillation
Not on OAC due to h/o intracranial bleed
[facility] PPM 10/2023
Hypertension
Hyperlipidemia
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
ECHO 09/23/2023: EF 59%, EF 50% by visual estimate with borderline global hypokinesis, moderate concentric LVH, 'speckled appearance' of LV on echo, enlarged RV, mildly dilated RA, mild MR, aortic sclerosis, mild AR, moderate TR, PAP 25 to 30 mmHg
Echo 06/02/2024: EF 45%, moderate concentric LVH, inferoseptal, basal anteroseptal hypokinesis conduction delay versus global hypokinesis; speckling appearance; enlarged RV with normal systolic function. Mild MR, mild AI, moderate to severe TR
Plan:
-Continue supportive care of COVID illness
-Improved from volume standpoint. weights are down to 183. switch to Lasix 40mg po bid. Creat 2.0. Cont to follow
-EF 45%. toprol 12.5mg daily added this admission
-He is not on aspirin or anticoagulation given history of intracranial bleed.
-Concern by echo for possible amyloid with speckled appearance of LV. Given advanced age, would not move forward with further workup
-trop peaked at 0.137 and trending down. no CP. suspected nonischemic myocardial injury. continue statin. BB added this admit.
HPI: Chris is an 89-year-old male with past medical history of paroxysmal atrial fibrillation not on anticoagulation due to history of intracranial bleed, chronic HFpEF, permanent pacemaker, hypertension, hyperlipidemia, and CKD. Presented to ER
for evaluation of abnormal lab work as outpatient. reported that he has had increased edema, weight gain, and shortness of breath as well as decreased urine output over the past few weeks. As outpatient, Lasix dose was recently reduced from 40
mg to 20 mg. In ER, found to have ANDREA with creatinine 1.9. proBNP 3500. Left lower lobe opacity noted on chest x-ray, consistent with pneumonia. He was given a dose of IV antibiotics in the ER and was admitted for further workup and evaluation.
Cardiology consulted given concern for acute heart failure.
Progress Note - Voice Intercept Technician
Subjective
Date of Service: June 11, 2024
feeling better. weight is down.
Objective
Labs:
06/09/24 10:10
06/11/24 04:54
Labs
Hgb 10.3 g/dL (13.0-18.0) L 06/09/24 10:10
Hct 32.0 % (39.0-52.0) L 06/09/24 10:10
Plt Count 138 10^3/uL (130-400) 06/09/24 10:10
Sodium 141 mmol/L (135-145) 06/11/24 04:54
Potassium 3.9 mmol/L (3.5-5.1) 06/11/24 04:54
BUN 70 mg/dl (9-20) H 06/11/24 04:54
Creatinine 2.0 mg/dL (0.7-1.3) H 06/11/24 04:54
Glucose 90 mg/dl (70-99) 06/11/24 04:54
Vital Signs and I&O:
Vital Signs
Temp Pulse Resp BP Pulse Ox
97.5 F 64 16 127/67 99
06/11/24 07:49 06/11/24 08:35 06/11/24 08:35 06/11/24 07:49 06/11/24 08:35
Vital Signs
Temp Pulse Resp BP Pulse Ox
97.5 F 64 16 127/67 99
06/11/24 07:49 06/11/24 08:35 06/11/24 08:35 06/11/24 07:49 06/11/24 08:35
Intake & Output
06/09/24 06/10/24 06/11/24 06/12/24
06:59 06:59 06:59 06:59
Intake Total 480 / 480 1440 / 1440 1080 / 1080
Output Total 500 / 500 1590 / 1590 925 / 925
Balance -20 / -20 -150 / -150 155 / 155
Physical Exam
Physical Exam
GEN: No distress, awake, Ox3
HEENT: supple, anicteric, mmm
LUNGS: CTA, no wheezes/rales
CV: Reg, S1/S2, 1/6 syst LSB, no gallop
ABD: soft, BS+, NT/ND
EXT: No edema
NEURO: Gross non-focal
SKIN: No rash
--- NOTE | 2024-06-11 13:22 | W.PN.NEPH.PH ---
Today's Communication / Plan
-
Stable p.o. Lasix per cardiology
Okay for discharge from renal standpoint
Assessment/Plan
-
Impression
Hypoxic respiratory distress
Volume overload/CHF EF 45% speckled appearance of LV myocardium moderate to severe tricuspid regurg
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
Paroxysmal atrial fibrillation
Pacemaker
Peripheral vascular disease
Metabolic acidosis
History of hypertension
Flank pain
History of prostate cancer with radio active seeding
Now with COVID
Plan:
ANDREA/CKD/Volume Overload=
-Maintain 40 mg IV Lasix BID
-Creatinine stable 1.8-1.9 from 2.1, uop ~nonoliguric
-Holding ARB, bp remains low
-CT scan of abdomen and pelvis reviewed: No evidence of obstructive uropathy or stone
-UA essentially bland consistent with likely underlying cardiorenal syndrome
discussion with family is weight was as low as 170 pounds and up to as high as 195 pounds is currently 182
Continue current diuretics
creatinine remains stable on diuretics
Cardiology to change to p.o. Lasix 40 twice daily
Creatinine down to 2
Weights also down
-
-
Date of Service: June 11, 2024
CC / HPI / ROS
-
Chief Complaint:
ANDREA
History of Present Illness:
Creatinine 2.1>1.8
Hemodynamically stable
now with COVID
Review of Systems:
Nonoliguric
No fevers
weights unchanged
Labs
-
Labs:
WBC 4.2 10^3/uL (4.8-10.8) L 06/09/24 10:10
RBC 2.99 10^6/uL (4.70-6.10) L 06/09/24 10:10
Hgb 10.3 g/dL (13.0-18.0) L 06/09/24 10:10
Hct 32.0 % (39.0-52.0) L 06/09/24 10:10
Plt Count 138 10^3/uL (130-400) 06/09/24 10:10
Sodium 141 mmol/L (135-145) 06/11/24 04:54
Potassium 3.9 mmol/L (3.5-5.1) 06/11/24 04:54
Chloride 107 mmol/L (98-107) 06/11/24 04:54
Carbon Dioxide 24 mmol/L (22-30) 06/11/24 04:54
BUN 70 mg/dl (9-20) H 06/11/24 04:54
Creatinine 2.0 mg/dL (0.7-1.3) H 06/11/24 04:54
eGFR 31.71 06/11/24 04:54
Glucose 90 mg/dl (70-99) 06/11/24 04:54
Calcium 8.8 mg/dl (8.4-10.2) 06/11/24 04:54
Atm-S-Ntilpamjlnh Pept 5700 pg/ml 06/09/24 10:10
Albumin 3.4 g/dl (3.5-5.0) L 06/09/24 10:10
Physical Exam
-
Vital Signs:
Vital Signs
Temp Pulse Resp BP Pulse Ox
97.5 F 64 16 127/67 99
06/11/24 07:49 06/11/24 08:35 06/11/24 08:35 06/11/24 07:49 06/11/24 08:35
Cardiovascular:: Regular rate and rhythm
Respiratory:: Bilateral: Coarse
Lung Excursion:: Normal
Abdomen:: Nontender and Soft
Bowel Sounds:: Normal
Extremity Edema:: +1: Bilateral:
Rene Catheter: No
[2024-06-11 16:10] VITALS: BP 102/63
[2024-06-11] MEDS: RISPERDAL M-TAB (ORALLY DISINTEGRATING) 0.25 MG PO (20:37)
[2024-06-11] MEDS: ZYRTEC 10 MG PO (20:38)
[2024-06-11 23:37] VITALS: BP 116/60
[2024-06-12] MEDS: RISPERDAL M-TAB (ORALLY DISINTEGRATING) 0.25 MG PO (05:09)
[2024-06-12 05:39] VITALS: BMI 24.8
[2024-06-12 06:00] VITALS: BMI 24.8
[2024-06-12 06:54] VITALS: BP 116/68
[2024-06-12] MEDS: SYMBICORT 80/4.5 MCG INHALER 2 PUFF INH ×2 (08:17→19:29)
[2024-06-12] MEDS: PAXLOVID 150-100 MG DOSE PACK 1 DOSE PO (08:55)
[2024-06-12] MEDS: TOPROL XL 12.5 MG PO (08:55)
[2024-06-12] MEDS: LASIX 40 MG IV (08:56)
[2024-06-12 10:16] LABS: Blood Urea Nitrogen 72 mg/dl (9-20); Calcium 8.7 mg/dl (8.4-10.2); Carbon Dioxide 22 mmol/L (22-30); Chloride 108 mmol/L (98-107); Estimated Creatinine Clearance 32 ml/min; Glucose 79 mg/dl (70-99); Sodium 140 mmol/L (135-145); eGFR 35.98
--- NOTE | 2024-06-12 11:20 | W.PN.HOSP.TC ---
Today's Communication/Plan
-
DC
Assessment / Plan
Assessment / Plan
Acute on chronic diastolic CHF decompensation with mid range EF
History of CHF with EF 50%
Echo shows mildly reduced LV function now 45%. IVC severely dilated.
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
A/P CT also shows mod right and small left pleural effusion with cardiomegaly.
Started on IV Lasix. Currently not hypoxic.
Appreciate cards; continue Lasix in the setting of improving Cr.
Switched to oral Lasix today
Weight improving. Ultrasound shows small volume ascites, not adequate for paracentesis.
- Creatinine improved today
Paroxysmal A-fib
- Patient not currently on AC 2/2 hx of ICH earlier this year.
Elevated troponin (resolved)
- Patient asymptomatic.
- Possible consequence of renal dysfunction or nonischemic myocardial injury.
- Last Troponin 0.084, downtrending.
ANDREA on CKD3
- Appreciate nephrology
- Hold ARB, continue diuresis
- CT shows no obstructive uropathy -
- Creatinine improving again
Hallucinations/Sundowning
- Patient seen by psych, appreciate recs. As needed risperidone 0.25 mg.
[facility]- today is [facility] day
Patient is medically cleared for discharge; awaiting bed at rehab.
Anticipated Discharge: Today
Subjective/Interval History
-
Date of Service: June 12, 2024
Patient sitting in the chair. Alert and oriented to place and person.
He knew it was week but did not know the day of the week.
Denies shortness of breath.
Denies chest pain.
No sore throat or fever.
Last night needed hospital but calmer today.
Objective Data
-
Labs:
Laboratory Results
06/12/24
07:47
Sodium 140
Potassium 4.0
Chloride 108 H
Carbon Dioxide 22
BUN 72 H
Creatinine 1.8 H
Glucose 79
Calcium 8.7
Vital Signs:
Vital Signs
Temp Pulse Resp BP Pulse Ox
97.6 F 82 16 116/68 95
06/12/24 06:54 06/12/24 08:56 06/12/24 08:17 06/12/24 08:56 06/12/24 11:10
I&O
06/11/24 06/12/24 06/13/24
06:59 06:59 06:59
Intake Total 1080 / 1080 900 / 900
Output Total 925 / 925 400 / 400
Balance 155 / 155 500 / 500
Review of Systems
-
Constitutional: Denies Fever or Chills
EENT: Denies Sore Throat
Respiratory: Denies Cough
Abdomen/GI: Denies Abdominal Pain, Nausea or Vomiting
Neuro: Denies Dizzy
Physical Exam
-
General: No Apparent Distress
HEENT: Moist Mucous Membranes
Respiratory: Clear to Auscultation
Cardiac: S1/S2 and Irregular Rhythm; Negative Tachycardic
GI: Soft and Nontender
Musculoskeletal: No Edema
Neuro: AO x 3
Psych: Calm
Data Reviewed
-
Labs: Labs Reviewed by me
--- NOTE | 2024-06-12 11:26 | W.PN.CARDCBS ---
Today's Communication / Plan
-
Doing better and weight is down.
Would discharge on Toprol 12.5 mg daily and Lasix 40 mg p.o. twice daily.
Repeat basic metabolic panel in 1 week.
Will arrange follow-up.
Impression / Plan
-
.
PCP: Dr. Estrada
Fire Fighters Dispatcher: Dr. Diaz
Impression:
Presented with weight gain, SOB
Acute on chronic HFpEF
EF 45%
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
Elevated troponin, suspected nonischemic myocardial injury
Mechanical fall last week
Paroxysmal atrial fibrillation
Not on OAC due to h/o intracranial bleed
[facility] PPM 10/2023
Hypertension
Hyperlipidemia
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
ECHO 09/23/2023: EF 59%, EF 50% by visual estimate with borderline global hypokinesis, moderate concentric LVH, 'speckled appearance' of LV on echo, enlarged RV, mildly dilated RA, mild MR, aortic sclerosis, mild AR, moderate TR, PAP 25 to 30 mmHg
Echo 06/02/2024: EF 45%, moderate concentric LVH, inferoseptal, basal anteroseptal hypokinesis conduction delay versus global hypokinesis; speckling appearance; enlarged RV with normal systolic function. Mild MR, mild AI, moderate to severe TR
Plan:
-Continue supportive care of COVID illness
-Improved from volume standpoint. weights are down to 182. switch to Lasix 40mg po bid. Creat 1.8
-EF 45%. toprol 12.5mg daily added this admission
-He is not on aspirin or anticoagulation given history of intracranial bleed.
-Concern by echo for possible amyloid with speckled appearance of LV. Given advanced age, would not move forward with further workup
-trop peaked at 0.137 and trending down. no CP. suspected nonischemic myocardial injury. continue statin. BB added this admit.
-Blood pressure overall remains marginal. He has had hypotension in the past. Would hold off on DON inhibitors or Entresto for now with renal insufficiency and hypotension
HPI: Chris is an 89-year-old male with past medical history of paroxysmal atrial fibrillation not on anticoagulation due to history of intracranial bleed, chronic HFpEF, permanent pacemaker, hypertension, hyperlipidemia, and CKD. Presented to ER
for evaluation of abnormal lab work as outpatient. reported that he has had increased edema, weight gain, and shortness of breath as well as decreased urine output over the past few weeks. As outpatient, Lasix dose was recently reduced from 40
mg to 20 mg. In ER, found to have ANDREA with creatinine 1.9. proBNP 3500. Left lower lobe opacity noted on chest x-ray, consistent with pneumonia. He was given a dose of IV antibiotics in the ER and was admitted for further workup and evaluation.
Cardiology consulted given concern for acute heart failure.
Progress Note - Fire Fighters Dispatcher
Subjective
Date of Service: June 12, 2024
Feels better. Breathing is improved.
Objective
Labs:
06/09/24 10:10
06/12/24 07:47
Labs
Hgb 10.3 g/dL (13.0-18.0) L 06/09/24 10:10
Hct 32.0 % (39.0-52.0) L 06/09/24 10:10
Plt Count 138 10^3/uL (130-400) 06/09/24 10:10
Sodium 140 mmol/L (135-145) 06/12/24 07:47
Potassium 4.0 mmol/L (3.5-5.1) 06/12/24 07:47
BUN 72 mg/dl (9-20) H 06/12/24 07:47
Creatinine 1.8 mg/dL (0.7-1.3) H 06/12/24 07:47
Glucose 79 mg/dl (70-99) 06/12/24 07:47
Vital Signs and I&O:
Vital Signs
Temp Pulse Resp BP Pulse Ox
97.6 F 82 16 116/68 95
06/12/24 06:54 06/12/24 08:56 06/12/24 08:17 06/12/24 08:56 06/12/24 11:10
Vital Signs
Temp Pulse Resp BP Pulse Ox
97.6 F 82 16 116/68 95
06/12/24 06:54 06/12/24 08:56 06/12/24 08:17 06/12/24 08:56 06/12/24 11:10
Intake & Output
06/10/24 06/11/24 06/12/24 06/13/24
06:59 06:59 06:59 06:59
Intake Total 1440 / 1440 1080 / 1080 900 / 900
Output Total 1590 / 1590 925 / 925 400 / 400
Balance -150 / -150 155 / 155 500 / 500
Physical Exam
Physical Exam
GEN: No distress, awake,
HEENT: supple, anicteric, mmm
LUNGS: CTA, no wheezes/rales
CV: Reg, S1/S2, 1/6 syst LSB, no gallop
ABD: soft, BS+, NT/ND
EXT: No edema
NEURO: Gross non-focal
SKIN: No rash
--- NOTE | 2024-06-12 11:36 | W.PN.NEPH.PH ---
Today's Communication / Plan
-
d/c plan
Assessment/Plan
-
Impression
Hypoxic respiratory distress
Volume overload/CHF EF 45% speckled appearance of LV myocardium moderate to severe tricuspid regurg
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
Paroxysmal atrial fibrillation
Pacemaker
Peripheral vascular disease
Metabolic acidosis
History of hypertension
Flank pain
History of prostate cancer with radio active seeding
Now with COVID
Plan:
ANDREA-cr improving to 1.8, likely nonoliguric wiht out regalado
bland UA, no hydro on CT, felt cardiorenal
wt stable, on RA
Holding ARB, bp stable, to start BB
on po lasix per cards
ok for d/c per renal
BMP in 1week
f/u with PCP and cards
d/w primary
-
-
Date of Service: June 12, 2024
CC / HPI / ROS
-
Chief Complaint:
ANDREA
History of Present Illness:
Creatinine down to 1.8
Hemodynamically stable
now with COVID
Review of Systems:
Nonoliguric
No fevers
weights unchanged
cough mild, on RA
Labs
-
Labs:
WBC 4.2 10^3/uL (4.8-10.8) L 06/09/24 10:10
RBC 2.99 10^6/uL (4.70-6.10) L 06/09/24 10:10
Hgb 10.3 g/dL (13.0-18.0) L 06/09/24 10:10
Hct 32.0 % (39.0-52.0) L 06/09/24 10:10
Plt Count 138 10^3/uL (130-400) 06/09/24 10:10
Sodium 140 mmol/L (135-145) 06/12/24 07:47
Potassium 4.0 mmol/L (3.5-5.1) 06/12/24 07:47
Chloride 108 mmol/L (98-107) H 06/12/24 07:47
Carbon Dioxide 22 mmol/L (22-30) 06/12/24 07:47
BUN 72 mg/dl (9-20) H 06/12/24 07:47
Creatinine 1.8 mg/dL (0.7-1.3) H 06/12/24 07:47
eGFR 35.98 06/12/24 07:47
Glucose 79 mg/dl (70-99) 06/12/24 07:47
Calcium 8.7 mg/dl (8.4-10.2) 06/12/24 07:47
Pgy-M-Debcwjxzpks Pept 5700 pg/ml 06/09/24 10:10
Albumin 3.4 g/dl (3.5-5.0) L 06/09/24 10:10
Physical Exam
-
Vital Signs:
Vital Signs
Temp Pulse Resp BP Pulse Ox
97.6 F 82 16 116/68 95
06/12/24 06:54 06/12/24 08:56 06/12/24 08:17 06/12/24 08:56 06/12/24 11:10
Cardiovascular:: Regular rate and rhythm
Respiratory:: Bilateral: CTA
Lung Excursion:: Normal
Abdomen:: Nontender and Soft
Extremity Edema:: None: Bilateral:
Regalado Catheter: No
[2024-06-12] MEDS: SENOKOT-S 1 TABLET PO (12:45)
[2024-06-12 14:47] VITALS: BP 103/65
[2024-06-12] MEDS: LASIX 40 MG PO (15:07)
--- NOTE | 2024-06-12 15:43 | CM ---
Reviewed the chart notes and spoke with the patient's spouse via telephone. Discussed that Covid is a barrier to placement. She was agreeable to additional SNF referrals. CM continues to be available to patient/family and is monitoring medical
plan for needs at discharge.
Plan: Discharge to SNF/rehab once bed found. No precert required.
[2024-06-12] MEDS: ZYRTEC 10 MG PO (21:53)
[2024-06-12 23:26] VITALS: BP 102/51
[2024-06-13 06:00] VITALS: BMI 25.2
[2024-06-13 07:20] VITALS: BP 114/77
[2024-06-13] MEDS: SYMBICORT 80/4.5 MCG INHALER 2 PUFF INH ×2 (07:55→20:07)
--- NOTE | 2024-06-13 08:00 | W.PN.CARDCBS ---
Today's Communication / Plan
-
OK for D/C
Would send on Lasix 60mg po bid.
Check basic met in 1 week
Creat 1.8
will arrange follow up and sign off
Impression / Plan
-
.
PCP: Dr. Estrada
Land Management Supervisor: Dr. Diaz
Impression:
Presented with weight gain, SOB
Acute on chronic HFpEF
EF 45%
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
Elevated troponin, suspected nonischemic myocardial injury
Mechanical fall last week
Paroxysmal atrial fibrillation
Not on OAC due to h/o intracranial bleed
[facility] PPM 10/2023
Hypertension
Hyperlipidemia
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
ECHO 09/23/2023: EF 59%, EF 50% by visual estimate with borderline global hypokinesis, moderate concentric LVH, 'speckled appearance' of LV on echo, enlarged RV, mildly dilated RA, mild MR, aortic sclerosis, mild AR, moderate TR, PAP 25 to 30 mmHg
Echo 06/02/2024: EF 45%, moderate concentric LVH, inferoseptal, basal anteroseptal hypokinesis conduction delay versus global hypokinesis; speckling appearance; enlarged RV with normal systolic function. Mild MR, mild AI, moderate to severe TR
Plan:
-Continue supportive care of COVID illness
-Improved from volume standpoint. weights at 185. would D/C on lasixx 60mg po bid. Repeat Basic Met in 1 week. Creat 1.8
-EF 45%. toprol 12.5mg daily added this admission
-He is not on aspirin or anticoagulation given history of intracranial bleed.
-Concern by echo for possible amyloid with speckled appearance of LV. Given advanced age, would not move forward with further workup
-trop peaked at 0.137 and trending down. no CP. suspected nonischemic myocardial injury. continue statin. BB added this admit.
-Blood pressure overall remains marginal. He has had hypotension in the past. Would hold off on DON inhibitors or Entresto for now with renal insufficiency and hypotension
HPI: Chris is an 89-year-old male with past medical history of paroxysmal atrial fibrillation not on anticoagulation due to history of intracranial bleed, chronic HFpEF, permanent pacemaker, hypertension, hyperlipidemia, and CKD. Presented to ER
for evaluation of abnormal lab work as outpatient. reported that he has had increased edema, weight gain, and shortness of breath as well as decreased urine output over the past few weeks. As outpatient, Lasix dose was recently reduced from 40
mg to 20 mg. In ER, found to have ANDREA with creatinine 1.9. proBNP 3500. Left lower lobe opacity noted on chest x-ray, consistent with pneumonia. He was given a dose of IV antibiotics in the ER and was admitted for further workup and evaluation.
Cardiology consulted given concern for acute heart failure.
Progress Note - Land Management Supervisor
Subjective
Date of Service: June 13, 2024
Breathing stable.
Objective
Labs:
06/09/24 10:10
06/12/24 07:47
Labs
Hgb 10.3 g/dL (13.0-18.0) L 06/09/24 10:10
Hct 32.0 % (39.0-52.0) L 06/09/24 10:10
Plt Count 138 10^3/uL (130-400) 06/09/24 10:10
Sodium 140 mmol/L (135-145) 06/12/24 07:47
Potassium 4.0 mmol/L (3.5-5.1) 06/12/24 07:47
BUN 72 mg/dl (9-20) H 06/12/24 07:47
Creatinine 1.8 mg/dL (0.7-1.3) H 06/12/24 07:47
Glucose 79 mg/dl (70-99) 06/12/24 07:47
Vital Signs and I&O:
Vital Signs
Temp Pulse Resp BP Pulse Ox
98.5 F 62 18 102/51 97
06/12/24 23:26 06/13/24 07:57 06/13/24 07:57 06/12/24 23:26 06/13/24 07:57
Vital Signs
Temp Pulse Resp BP Pulse Ox
98.5 F 62 18 102/51 97
06/12/24 23:26 06/13/24 07:57 06/13/24 07:57 06/12/24 23:26 06/13/24 07:57
Intake & Output
06/11/24 06/12/24 06/13/24 06/14/24
06:59 06:59 06:59 06:59
Intake Total 1080 / 1080 900 / 900 1820 / 1820
Output Total 925 / 925 400 / 400 825 / 825
Balance 155 / 155 500 / 500 995 / 995
Physical Exam
Physical Exam
GEN: No distress, awake, Ox2
HEENT: supple, anicteric, mmm
LUNGS: CTA, no wheezes/rales
CV: Reg, S1/S2, 1/6 syst LSB, no gallop
ABD: soft, BS+, NT/ND
EXT: No edema
NEURO: Gross non-focal
SKIN: No rash
[2024-06-13] MEDS: TOPROL XL 12.5 MG PO (08:49)
[2024-06-13] MEDS: LASIX 40 MG PO ×2 (08:49→15:04)
--- NOTE | 2024-06-13 09:25 | W.PN.HOSP.TC ---
Today's Communication/Plan
-
DC
Assessment / Plan
Assessment / Plan
Acute on chronic diastolic CHF decompensation with mid range EF
History of CHF with EF 50%
Echo shows mildly reduced LV function now 45%. IVC severely dilated.
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
A/P CT also shows mod right and small left pleural effusion with cardiomegaly.
Started on IV Lasix. Currently not hypoxic.
Appreciate cards; continue Lasix in the setting of improving Cr.
Switched to oral Lasix06/12
Weight improving. Ultrasound shows small volume ascites, not adequate for paracentesis.
- Creatinine improved
Paroxysmal A-fib
- Patient not currently on AC 2/2 hx of ICH earlier this year.
Elevated troponin (resolved)
- Patient asymptomatic.
- Possible consequence of renal dysfunction or nonischemic myocardial injury.
- Last Troponin 0.084, downtrending.
ANDREA on CKD3
- Appreciate nephrology
- Hold ARB, continue diuresis
- CT shows no obstructive uropathy -
- Creatinine improving again
Hallucinations/Sundowning
- Patient seen by psych, appreciate recs. As needed risperidone 0.25 mg.
COVID infection acute - in hospital - Finished paxlovid course
Patient is medically cleared for discharge; awaiting bed at rehab.
More than 30 minutes spent in discharge including
Final examination of the patient
Summarizing hospital stay
Instructions for continuing care to all relevant caregivers
Preparation of discharge records, prescriptions, and referral forms
Total time spent (in minutes): 35
Anticipated Discharge: Today
Subjective/Interval History
-
Date of Service: June 13, 2024
Patient voices no specific complaints.
Denies any shortness of breath. Tolerating diet.
Objective Data
-
Vital Signs:
Vital Signs
Temp Pulse Resp BP Pulse Ox
97.4 F 62 18 114/77 97
06/13/24 07:20 06/13/24 08:49 06/13/24 07:57 06/13/24 08:49 06/13/24 07:57
I&O
06/12/24 06/13/24 06/14/24
06:59 06:59 06:59
Intake Total 900 / 900 1820 / 1820
Output Total 400 / 400 825 / 825
Balance 500 / 500 995 / 995
Review of Systems
-
Constitutional: Denies Fever
EENT: Denies Sore Throat
Respiratory: Denies Cough
Cardiac: Denies Chest Pain
Abdomen/GI: Denies Abdominal Pain, Nausea or Diarrhea
Neuro: Denies Dizzy
Physical Exam
-
General: No Apparent Distress
HEENT: Moist Mucous Membranes
Respiratory: Clear to Auscultation and Non Labored Respirations; Negative Accessory Resp Muscle Use
Cardiac: Regular Rhythm (A V paced) and S1/S2
GI: Soft and Nontender
Musculoskeletal: No Edema
Neuro: AO x 3
Psych: Calm
[2024-06-13] MEDS: MIRALAX 17 GRAMS PO (10:42)
--- NOTE | 2024-06-13 11:20 | CM ---
Addendum entered by Geri Ferrara RN 06/13/24 15:12:
IMM reviewed.
Addendum entered by Geri Ferrara RN 06/13/24 15:02:
Patient's spouse agreeable to [facility]. [facility] can accept tomorrow. Patient's spouse, RN, and attending updated.
Plan: [facility]
Call report to: [phone]
Fax report to: [phone]
Medical necessity and transport forms on chart.
Original Note:
Reviewed the chart notes and spoke with [facility] medical scientific liaison. Per Aimee, they can accept at [facility], [facility], or [facility]. CM Spoke with the patient's spouse via telephone to discuss facilities willing to accept the patient.
Patient's spouse thought the patient would stay through the holidays. CM explained that the patient is ready for discharge and family needs to agree to a facility for the patient, so he can receive daily PT/OT. [facility] has a private room.
Patient's spouse not agreeable to [facility] or [facility]. She and her son are planning on touring [facility] today. RN updated. CM continues to be available to patient/family and is monitoring medical plan for needs at discharge.
Plan: Discharge to SNF/rehab once bed secure. No precert required.
[2024-06-13 15:08] VITALS: BP 106/64
--- NOTE | 2024-06-13 17:55 | W.PN.NEPH.PH ---
Today's Communication / Plan
-
d/c plan
Assessment/Plan
-
Impression
Hypoxic respiratory distress
Volume overload/CHF EF 45% speckled appearance of LV myocardium moderate to severe tricuspid regurg
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
Paroxysmal atrial fibrillation
Pacemaker
Peripheral vascular disease
Metabolic acidosis
History of hypertension
Flank pain
History of prostate cancer with radio active seeding
Now with COVID
Plan:
ANDREA-cr improving to 1.8, no labs today
likely nonoliguric wiht out regalado
bland UA, no hydro on CT, felt cardiorenal
wt stable, on RA
Holding ARB, bp stable, on BB
on po lasix per cards
wt increasing, follow daily wts -on RA
ok for d/c per renal
BMP in 1week
f/u with PCP and cards
d/w primary
-
-
Date of Service: June 13, 2024
CC / HPI / ROS
-
Chief Complaint:
ANDREA
History of Present Illness:
Creatinine down to 1.8, no labs today
Hemodynamically stable
now with COVID
wt increasing
Review of Systems:
Nonoliguric
No fevers
no sob or cp, on RA
Labs
-
Labs:
WBC 4.2 10^3/uL (4.8-10.8) L 06/09/24 10:10
RBC 2.99 10^6/uL (4.70-6.10) L 06/09/24 10:10
Hgb 10.3 g/dL (13.0-18.0) L 06/09/24 10:10
Hct 32.0 % (39.0-52.0) L 06/09/24 10:10
Plt Count 138 10^3/uL (130-400) 06/09/24 10:10
Sodium 140 mmol/L (135-145) 06/12/24 07:47
Potassium 4.0 mmol/L (3.5-5.1) 06/12/24 07:47
Chloride 108 mmol/L (98-107) H 06/12/24 07:47
Carbon Dioxide 22 mmol/L (22-30) 06/12/24 07:47
BUN 72 mg/dl (9-20) H 06/12/24 07:47
Creatinine 1.8 mg/dL (0.7-1.3) H 06/12/24 07:47
eGFR 35.98 06/12/24 07:47
Glucose 79 mg/dl (70-99) 06/12/24 07:47
Calcium 8.7 mg/dl (8.4-10.2) 06/12/24 07:47
Lzc-I-Rfvnhpvpozn Pept 5700 pg/ml 06/09/24 10:10
Albumin 3.4 g/dl (3.5-5.0) L 06/09/24 10:10
Physical Exam
-
Vital Signs:
Vital Signs
Temp Pulse Resp BP Pulse Ox
97.7 F 60 16 106/64 100
06/13/24 15:08 06/13/24 15:08 06/13/24 15:08 06/13/24 15:08 06/13/24 15:08
Cardiovascular:: Regular rate and rhythm
Respiratory:: Bilateral: CTA (decreased)
Lung Excursion:: Normal
Abdomen:: Nontender and Soft
Extremity Edema:: +1: Bilateral: (trace)
Regalado Catheter: No
[2024-06-13] MEDS: ZYRTEC 10 MG PO (21:15)
[2024-06-14] MEDS: SYMBICORT 80/4.5 MCG INHALER 2 PUFF INH (07:44)
[2024-06-14 08:00] VITALS: BP 128/70
[2024-06-14] MEDS: LASIX 40 MG PO (08:47)
[2024-06-14] MEDS: TOPROL XL 12.5 MG PO (08:47)
--- NOTE | 2024-06-14 11:08 | W.PN.HOSP.TC ---
Today's Communication/Plan
-
DC
Assessment / Plan
Assessment / Plan
Acute on chronic diastolic CHF decompensation with mid range EF
History of CHF with EF 50%
Echo shows mildly reduced LV function now 45%. IVC severely dilated.
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
A/P CT also shows mod right and small left pleural effusion with cardiomegaly.
was Started on IV Lasix. Currently not hypoxic.
Appreciate cards; continue Lasix in the setting of improving Cr.
Switched to oral Lasix06/12
Weight improved. Ultrasound shows small volume ascites, not adequate for paracentesis.
- Creatinine improved
Paroxysmal A-fib
- Patient not currently on AC 2/2 hx of ICH earlier this year.
Elevated troponin (resolved)
- Patient asymptomatic.
- Possible consequence of renal dysfunction or nonischemic myocardial injury.
- Last Troponin 0.084, downtrending.
ANDREA on CKD3
- Appreciate nephrology
- Hold ARB, continue diuresis
- CT shows no obstructive uropathy -
- Creatinine improving again
Hallucinations/Sundowning
- Patient seen by psych, appreciate recs. No agitation this am.
COVID infection acute - in hospital - Finished paxlovid course
Patient is medically cleared for discharge; awaiting bed at rehab.
More than 30 minutes spent in discharge including
Final examination of the patient
Summarizing hospital stay
Instructions for continuing care to all relevant caregivers
Preparation of discharge records, prescriptions, and referral forms
Total time spent (in minutes): 35
Anticipated Discharge: Today
Subjective/Interval History
-
Date of Service: June 14, 2024
No overnight events.
Denies any shortness of breath today. Denies any chest pain. No cough.
No nausea vomiting. Tolerating diet.
Had a BM today.
Objective Data
-
Vital Signs:
Vital Signs
Temp Pulse Resp BP Pulse Ox
97.6 F 62 18 128/70 97
06/14/24 08:00 06/14/24 08:00 06/14/24 08:00 06/14/24 08:00 06/14/24 08:00
I&O
06/13/24 06/14/24 06/15/24
06:59 06:59 06:59
Intake Total 1820 / 1820 1440 / 1440
Output Total 825 / 825 550 / 550
Balance 995 / 995 890 / 890
Review of Systems
-
Constitutional: Denies Fever or Chills
EENT: Denies Sore Throat
Respiratory: Denies Cough
Neuro: Denies Dizzy or Headache
Physical Exam
-
General: No Apparent Distress
HEENT: Moist Mucous Membranes
Respiratory: Clear to Auscultation; Negative Wheezes
Cardiac: Regular Rhythm and S1/S2
GI: Soft and Nontender
Neuro: AO x 3
Psych: Calm
[2024-06-14 11:47] VITALS: BP 110/72
--- NOTE | 2024-06-14 13:01 | W.PN.NEPH.PH ---
Today's Communication / Plan
-
ok for d/c
Assessment/Plan
-
Impression
Hypoxic respiratory distress
Volume overload/CHF EF 45% speckled appearance of LV myocardium moderate to severe tricuspid regurg
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
Paroxysmal atrial fibrillation
Pacemaker
Peripheral vascular disease
Metabolic acidosis
History of hypertension
Flank pain
History of prostate cancer with radio active seeding
Now with COVID
Plan:
ANDREA-cr improving to 1.8 06/12, no labs today
likely nonoliguric wiht out regalado
bland UA, no hydro on CT, felt cardiorenal
wt stable, on RA
Holding ARB, bp stable, on BB
on po lasix per cards
follow daily wts -on RA
ok for d/c per renal
BMP in 1week
f/u with PCP and cards
nephro if needed
d/w
-
-
Date of Service: June 14, 2024
CC / HPI / ROS
-
Chief Complaint:
ANDREA
History of Present Illness:
Creatinine down to 1.8 on 06/12, no labs today
Hemodynamically stable
now with COVID
no wts today
non oliguric
Review of Systems:
No fevers
no sob or cp, on RA
Labs
-
Labs:
WBC 4.2 10^3/uL (4.8-10.8) L 06/09/24 10:10
RBC 2.99 10^6/uL (4.70-6.10) L 06/09/24 10:10
Hgb 10.3 g/dL (13.0-18.0) L 06/09/24 10:10
Hct 32.0 % (39.0-52.0) L 06/09/24 10:10
Plt Count 138 10^3/uL (130-400) 06/09/24 10:10
Sodium 140 mmol/L (135-145) 06/12/24 07:47
Potassium 4.0 mmol/L (3.5-5.1) 06/12/24 07:47
Chloride 108 mmol/L (98-107) H 06/12/24 07:47
Carbon Dioxide 22 mmol/L (22-30) 06/12/24 07:47
BUN 72 mg/dl (9-20) H 06/12/24 07:47
Creatinine 1.8 mg/dL (0.7-1.3) H 06/12/24 07:47
eGFR 35.98 06/12/24 07:47
Glucose 79 mg/dl (70-99) 06/12/24 07:47
Calcium 8.7 mg/dl (8.4-10.2) 06/12/24 07:47
Pge-P-Afginuejokh Pept 5700 pg/ml 06/09/24 10:10
Albumin 3.4 g/dl (3.5-5.0) L 06/09/24 10:10
Physical Exam
-
Vital Signs:
Vital Signs
Temp Pulse Resp BP Pulse Ox
98.1 F 60 18 110/72 94
06/14/24 11:47 06/14/24 11:47 06/14/24 11:47 06/14/24 11:47 06/14/24 11:47
Cardiovascular:: Regular rate and rhythm
Respiratory:: Bilateral: CTA
Lung Excursion:: Normal
Abdomen:: Nontender and Soft
Extremity Edema:: None: Bilateral: (trace)
Regalado Catheter: No
== END 2024-06-14 12:21 | DRG 291 ==
LOC: 2 NORTH 15:23
PROVIDERS: Internal Medicine; Nuclear Medicine Nuclear Cardiology; Nurse Practitioner; ADMITTING PHYSICIAN Internal Medicine; CONSULT PHYSICIAN Internal Medicine Cardiovascular Disease; CONSULT PHYSICIAN Specialist; EMERGENCY PHYSICIAN Emergency Medicine; FAMILY PHYSICIAN Family Medicine; OTHER PHYSICIAN Psychiatry & Neurology Psychiatry
DX: I13.0 Hypertensive heart and chronic kidney disease with heart failure and stage 1 through stage 4 chronic kidney disease, or unspecified chronic kidney disease (principal); I50.33 Acute on chronic diastolic (congestive) heart failure; J18.9 Pneumonia, unspecified organism; U07.1 COVID-19; N17.9 Acute kidney failure, unspecified; E87.20 Acidosis, unspecified; R44.3 Hallucinations, unspecified; D61.818 Other pancytopenia; F05 Delirium due to known physiological condition; N18.32 Chronic kidney disease, stage 3b; E78.00 Pure hypercholesterolemia, unspecified; I5A Non-ischemic myocardial injury (non-traumatic); I73.9 Peripheral vascular disease, unspecified; R09.02 Hypoxemia; R06.03 Acute respiratory distress; I07.1 Rheumatic tricuspid insufficiency; I48.0 Paroxysmal atrial fibrillation; M54.50 Low back pain, unspecified; W01.0XXA Fall on same level from slipping, tripping and stumbling without subsequent striking against object, initial encounter; Y93.9 Activity, unspecified; Y92.002 Bathroom of unspecified non-institutional (private) residence as the place of occurrence of the external cause; Z66 Do not resuscitate; Z96.653 Presence of artificial knee joint, bilateral; Z96.642 Presence of left artificial hip joint; Z95.0 Presence of cardiac pacemaker; Z86.73 Personal history of transient ischemic attack (TIA), and cerebral infarction without residual deficits; Z92.3 Personal history of irradiation; Z85.46 Personal history of malignant neoplasm of prostate
CPT/HCPCS: 70450; 71045; 71046; 74176; 76700; 76705; 80048; 80053; 81003; 82248; 82550; 82607; 82746; 83735; 83880; 84443; 84484; 85025; 85027; 85379; 87811; 93005; 93306; 93970; 94640; 96365; 96375; 97163; 97167; 97530; 99285